=== PATIENT | male | born 1970 | race Caucasian/White ===

== ENCOUNTER 2020-01-01 08:42 | Outpatient (RCR) | payer OTHER, SELFPAY ==
--- NOTE | 2020-01-01 09:55 | PM.CNOR ---
Assessment and Plan Assessment and plan (1) Diabetic foot ulcer: Qualifiers: Diabetic foot ulcer location: midfoot Diabetes mellitus type: type 2 Laterality: right Non-pressure ulcer stage: with muscle involvement without evidence of necrosis Qualified Code(s): E11.621 - Type 2 diabetes mellitus with foot ulcer; L97.415 - Non-pressure chronic ulcer of right heel and midfoot with muscle involvement without evidence of necrosis Code(s): E11.621 - Type 2 diabetes mellitus with foot ulcer; L97.509 - Non-pressure chronic ulcer of other part of unspecified foot with unspecified severity Status: Acute Assessment and Plan: New complaints of right plantar DFU which began in June after falling asleep with his foot too close to a heater. He has been self treating his wound since that time and has not seen a provider or been on antibiotics. Ulcer on the plantar aspect of the 4th metatarsal head without signs of infection. No surrounding redness, warmth, swelling or drainage. Wound debrided under sterile conditions with #15 blade knife, tolerated well. Begin treatment with silver gel/foam and cover dry. Patient fit with fracture boot for additional pressure offloading. Pending closure of wound, patient will need to be fitted with custom orthotics/depth shoes. He was given an order 1 year ago but has been noncompliant with moving forward with fabrication by [facility]. Follow up in 2 weeks for reassessment. (2) Diabetes: Qualifiers: Diabetes mellitus type: type 2 Diabetes mellitus fdc insulin use: with fdc use Diabetes mellitus complication status: with skin complications Diabetes mellitus complication detail: with foot ulcer Qualified Code(s): E11.621 - Type 2 diabetes mellitus with foot ulcer; L97.509 - Non-pressure chronic ulcer of other part of unspecified foot with unspecified severity; Z79.4 - senior care (current) use of insulin Code(s): E11.9 - Type 2 diabetes mellitus without complications Status: Acute Assessment and Plan: Diabetes managed by Dr. Vega at [facility]. Patient currently on Jaurdiance. Patient reports good control of BG levels. Per patient, most recent HgB A1C is 6.2%. Discussed importance of proper nutrition and diabetic control for optimal healing. Patient verbalized understanding. History of Present Illness HPI Consult date: 01/01/20 Consult reason: other (Right DFU ) Chief complaint: E11.621 Type 2 diabetes with foot ulcer L97.519 Narrative: 49 year old male presents for evaluation of new onset right plantar DFU. Patient reports that the wound began in June after falling asleep with his foot too close to a heater. The patient reports having initially experienced a blister on the entire plantar aspect of the right foot. He has been performing self care on the foot with alcohol/hydrogen peroxide and triple antibiotic lotion. He has been using an old fracture boot and post op shoe. He has not been evaluated by a physician for his foot. He reports well controlled blood glucose levels after changes to his regimen by Dr. Vega at [facility]. He reports his most recent HgB A1C of 6.2%. Review of Systems Constitutional: Constitutional: Reports no additional constitutional complaints, Denies excessive sweating, Denies fever(s) and Denies weight gain Eyes: Eyes: Reports no additional eye complaints and Denies change in vision ENT: Reports system reviewed and no additional complaints, except as documented and Reports Normal hearing present Cardiovascular: Cardiovascular: Denies chest pain, Denies diaphoresis, Denies leg ulcers and Denies dyspnea on exertion Respiratory: Respiratory: Reports no additional respiratory complaints, Denies cough and Denies dyspnea on exertion Gastrointestinal: Gastrointestinal: Reports no additional gastrointestinal complaints, Denies abdominal pain, Denies constipation, Denies nausea and Denies vomiting Genitourinary: Genitourinary:
[2020-01-01 10:47] VITALS: BMI 44.6
--- NOTE | 2020-01-15 08:56 | PCWOUND ---
WOCN NOTE patient did not show up for appointment, left message to reschedule.
== END 2020-02-20 15:13 | disposition home or self-care (01) ==
LOC: ANHWOC 08:42
PROVIDERS: Visit Provider Orthopaedic Surgery
DX: E11.621 Type 2 diabetes mellitus with foot ulcer (principal); L97.519 Non-pressure chronic ulcer of other part of right foot with unspecified severity
CPT/HCPCS: 11043

== ENCOUNTER 2020-08-19 11:31 | Inpatient (IN) | payer OTHER, SELFPAY ==
--- NOTE | ~2020-08-19 | XR_ITS ---
EXAMINATION: XR surgery orthopedic DATE: 08/21/2020 14:23 INDICATION: Right third toe amputation TECHNIQUE: 2 fluoroscopic images of the right forefoot were obtained during procedure performed by Dr Beckie Burton. Radiologist was not present for the imaging or procedure. The amount of fluoroscopy time u sed during this procedure was 0.1 minutes. COMPARISON: 08/19/2020 FINDINGS: Transmetatarsal amputation of the third toe and distal aspect of the third metatarsal. Again seen is widening of the first and second metatarsophalangeal joint spaces with destructive change at the head s of the first and second metatarsals and to lesser degree the base of the first and second proximal phalanges likely sequela chronic septic arthritis and osteomyelitis. IMPRESSION: 1. Third toe and third transmetatarsal amputation for osteomyelitis with pathologic fractures. See pr ocedure note for further detail. 2. Chronic and associated osteolysis centered at the first and second metatarsophalangeal joints hickman ge of chronic septic arthritis and osteomyelitis. Difficult to exclude ongoing infection. Reviewed, dictated and finalized at location B. T KILN OPERATOR IMPRESSION: 1. Third toe and third transmetatarsal amputation for osteomyelitis with pathol ogic fractures. See procedure note for further detail. 2. Chronic and associated osteolysis centered at the first and second metatarso phalangeal joints change of chronic septic arthritis and osteomyelitis. Difficu lt to exclude ongoing infection.
--- NOTE | ~2020-08-19 | XR_ITS ---
EXAMINATION: XR toe 3rd RT min 2V DATE: 08/19/2020 13:10 INDICATION: Open wound. Stubbed toe 4 days prior. TECHNIQUE: Dorsal plantar, lateral and oblique views of the right third were obtained. COMPARISON: 10/10/2018 FINDINGS: There is prominent osteopenia and more focal osteolysis involving the head and neck of the third meta tarsal as well as the proximal and middle phalanges of the third toe consistent with osteomyelitis. S econdary pathologic fractures at the necks of the third metatarsal and at the proximal distal aspect of the diaphysis of the proximal phalanx. There is some soft tissue gas at the plantar aspect of the base of the third proximal phalanx. Chronic widening of the first and second metatarsophalangeal joint with chronic appearing cortical er osions with smooth corticated margins at the heads of the first and second metatarsals and with some chronic periosteal reaction at the base of the first and second proximal phalanges consistent with se quela chronic septic arthritis and osteomyelitis. No evident progressive osteolysis to suggest ongoin g osteomyelitis at the first and second rays.. IMPRESSION: 1. Osteomyelitis involving the head and neck of the right third metatarsal as well as the right third proximal and middle phalanges with likely secondary pathologic fractures at the neck of the third me tatarsal at the proximal distal diaphyses of the third proximal phalanx. 2. Change consistent with chronic septic arthritis and possible colitis at the first and second metat arsophalangeal joints. Reviewed, dictated and finalized at location B. KER HEATED METAL FORMS IMPRESSION: 1. Osteomyelitis involving the head and neck of the right third metatarsal as w ell as the right third proximal and middle phalanges with likely secondary path ologic fractures at the neck of the third metatarsal at the proximal distal una physes of the third proximal phalanx. 2. Change consistent with chronic septic arthritis and possible colitis at the first and second metatarsophalangeal joints.
--- NOTE | ~2020-08-19 | XR_ITS ---
EXAMINATION: XR foot RT min 3V DATE: 08/19/2020 15:07 INDICATION: Right third digit ulcer. TECHNIQUE: 4 views of right foot were obtained. COMPARISON: Right third toe radiographs 08/19/2020, right foot radiographs 10/10/2018, 07/06/18 FINDINGS: Bone alignment is normal. There are worsened chronic erosions of base of first proximal pha lanx and head of first metatarsal. There are stable chronic erosions at head of second metatarsal. Th ere is osteopenia of distal third metatarsal with pathologic transverse fracture of the neck of third metatarsal. There are erosions and osteopenia of third proximal phalanx with pathologic comminuted f racture. There is osteopenia of third middle and distal phalanges. There is an erosion of third middl e phalanx proximally. There is mild midfoot osteoarthritis. There are enthesophytes at the posterior and plantar aspects of calcaneal tuberosity. There is an ulcer in plantar aspect of third digit. IMPRESSION: 1. Osteomyelitis involving third metatarsal and the third proximal and middle phalanges with patholog ic fractures of third metatarsal and third proximal phalanx. 2. Worsened chronic erosions of base of first distal phalanx and head of first metatarsal, which may be secondary to degenerative change at the pseudoarthrosis or recurrent osteomyelitis. Reviewed, dictated and finalized at location A. ONAL RECRUITER IMPRESSION: 1. Osteomyelitis involving third metatarsal and the third proximal and middle p halanges with pathologic fractures of third metatarsal and third proximal phala nx. 2. Worsened chronic erosions of base of first distal phalanx and head of first metatarsal, which may be secondary to degenerative change at the pseudoarthrosi s or recurrent osteomyelitis.
[2020-08-19 12:08] VITALS: BP 145/75; PULSE 87; RESP 18; TEMP 36.2; O2SAT 99
[2020-08-19 12:41] LABS: Basophils Absolute Auto 0.1 K/mm3 (0.0-0.1); Basophils Percent Auto 0.9 % (0.2-1.2); Eosinophils Absolute Auto 0.2 K/mm3 (0-0.3); Hematocrit 40.4 % (42.0-52.0); Hemoglobin 13.7 g/dL (14.0-18.0); Immature Granulocyte Percent A 1.3 % (0-0.5); Lymphocytes Absolute Auto 1.58 K/mm3 (0.9-3.2); Lymphocytes Percent Auto 19.8 % (18.3-44.2); Mean Corpuscular HGB Conc 33.9 g/dl (32-36); Mean Corpuscular Hemoglobin 29.7 pg (26-34); Mean Corpuscular Volume 87.6 fl (80-100); Mean Platelet Volume 7.8 fl (7.4-10.4); Monocytes Absolute Auto 0.3 K/mm3 (0.1-0.6); Monocytes Percent Auto 3.5 % (2.6-8.5); Neutrophils Absolute Auto 5.8 K/mm3 (1.3-6.7); Neutrophils Percent Auto 72.5 % (45.5-73.1); Platelet Count Result 465 k/mm3 (150-375); Red Blood Count 4.61 M/mm3 (4.6-6.20); Red Cell Distribution Width 12.3 % (11.5-14.5)
[2020-08-19 12:52] LABS: Anion Gap 7 mmol/L (8-16); Blood Urea Nitrogen 12 mg/dL (9-20); Calcium 8.7 mg/dL (8.4-10.2); Carbon Dioxide 28 mmol/L (22-30); Chloride 98 mmol/L (98-107); Estimated CRCL calculation 134 ml/min; Estimated Glomerular Filt Rate > 60; Glucose 109 mg/dL (75-110); Potassium 4.3 mmol/L (3.4-5.0); Sodium 133 mmol/L (137-145)
--- NOTE | 2020-08-19 14:14 | ED.GENADULT ---
HPI - General Adult General Chief complaint: Wound/Laceration <Attila Proctor PA-C - Last Filed: 08/19/20 17:18> Stated complaint: R foot injury <EDILMA Mahoney Last Filed: 08/19/20 17:18> Time Seen by Provider: 08/19/20 12:57 <EDILMA Mahoney Last Filed: 08/19/20 17:18> Source: patient <EDILMA Mahoney Last Filed: 08/19/20 17:18> Mode of arrival: ambulatory <EDILMA Mahoney Last Filed: 08/19/20 17:18> Limitations: no limitations <EDLIMA Mahoney Last Filed: 08/19/20 17:18> History of Present Illness HPI narrative: Patient presents with chief complaint of pain, swelling and drainage from the right third metatarsal that has been present for 4 days. Patient states that he still works out 4 days ago and that is when he originally noticed the area. Patient states that he has had the ulcer to the plantar aspect of his foot for quite some time. Patient states that Dr. Burton perform surgery on his foot less than a year ago and was able to save it. Patient has diabetes. Patient denies fever, chills, nausea, vomiting, diarrhea, chest pain, shortness of breath or any other symptoms. <EDILMA Mahoney Last Filed: 08/19/20 17:18> Related Data Home medications: Home Medications Medication Instructions Recorded Confirmed empagliflozin [Jardiance] 10 mg PO DAILY 01/01/20 01/01/20 lisinopril 10 mg PO DAILY 01/01/20 01/01/20 metoprolol succinate 25 mg PO DAILY 01/01/20 01/01/20 aspirin 81 mg PO DAILY 08/19/20 atorvastatin 80 mg DAILY 08/19/20 empagliflozin [Jardiance] 10 mg DAILY 08/19/20 insulin NPH and regular human 40 unit SUBCUT DAILY 08/19/20 [Humulin 70/30 U-100 Insulin] insulin NPH and regular human SUBCUT 08/19/20 [Humulin 70/30 U-100 Insulin] <EDILMA Mahoney Last Filed: 08/19/20 17:18> Allergies/adverse reactions: Allergies Allergy/AdvReac Type Severity Reaction Status Date / Time amoxicillin Allergy Intermediate Swelling Verified 08/19/20 16:48 clavulanic acid Allergy Intermediate Swelling Verified 08/19/20 16:48 <Attila Proctor PA-C - Last Filed: 08/19/20 17:18> Review of Systems Review of Systems: Narrative: CONSTITUTIONAL: Denies fever, chills, or sweats. EYES: Denies visual changes, redness, or discharge. ENT: Denies rhinorrhea, congestion, sore throat, or otalgia. CARDIOVASCULAR: Denies chest pain, palpitations, or edema. RESPIRATORY: Denies cough or dyspnea. GASTROINTESTINAL: Denies abdominal pain, nausea, vomiting, or diarrhea. GENITOURINARY: Denies dysuria or hematuria. SKIN: Denies rash or itching. MUSCULOSKELETAL: Reports swelling pain erythema to right third metatarsal denies back pain, joint pain, or myalgia. NEUROLOGIC: Denies headache, numbness, dizziness, or weakness. PSYCHIATRIC: Denies anxiety or depression. <Attila Proctor PA-C - Last Filed: 08/19/20 17:18> [facility] Past Medical History Medical History: Medical History Diabetes HTN (hypertension) Osteomyelitis Septic arthritis Smoking <Attila Proctor PA-C - Last Filed: 08/19/20 17:18> Surgical History Surgical History: Surgical History H/O foot surgery 1. Excision of osteomyelitis from the right foot first and second metatarsal heads. 2. Incision of the hallux metatarsophalangeal joint with removal of septic arthritis. By Dr. Burton 2017 <Attila Proctor PA-C - Last Filed: 08/19/20 17:18> Social History Social History: Social History (Updated 08/19/20 @ 16:25 by TAL Guzmán) Social History: 49-year-old male that lives at home independently. His brother recently . He reports smoking approximately 10 cigarettes per day and frequently using marijuana. He reports intermittently drinking with his most recent drink approximately 2 weeks ago. Smoking status: Current every day smoker Tobacco type: cigarettes Second boland
--- NOTE | 2020-08-19 15:08 | PC.NURSE ---
received report from Cici RODRIGUEZ. patient here with wound. now (+) osteomyelitis. getting IV antibiotic now. has order for vancomycin next. planning for admission. no change in overall condition. patient is aware.
--- NOTE | 2020-08-19 15:30 | PM.IMHP ---
H&P: HPI History of Present Illness Date/Time: 08/19/20 15:30 Chief Complaint: Right foot wound. Narrative: This is a 49-year-old male with insulin-dependent diabetes, hypertension, and hyperlipidemia who presented to the emergency department earlier today via private vehicle from home for evaluation of a right foot wound. For the past couple of weeks he has noticed perhaps some irritation near the right 3rd metatarsal but over the past 4 days the area has become erythematous and edematous, initially with serosanguineous drainage but he has more recently noticed purulence and malodorous drainage. He has a prior history of of osteomyelitis and septic arthritis in the same foot and imaging today is consistent with osteomyelitis. At the time my evaluation he is comfortable after receiving pain medication. He has not had fever, chills, or sweats. Appetite has been good. No nausea or vomiting. He has not had blurry vision, polydipsia, or polyuria. Review of Systems Review of Systems: Narrative: Twelve systems were reviewed with pertinent positives and negatives as per HPI. No fever, chills, or sweats. No recent cold or flu symptoms. No known exposure to those positive for COVID-19. He denies cough and shortness of breath. No chest pain. No nausea, vomiting, or diarrhea. No dysuria. Except as documented, all other systems were reviewed and are negative. [facility] Past Medical History Medical History (Updated 08/19/20 @ 23:59 by Lacey Hogan PA-C) Hypertension Insulin dependent type 2 diabetes mellitus Osteomyelitis Septic arthritis Tobacco abuse Surgical History Surgical History (Updated 08/19/20 @ 23:55 by Lacey Hogan PA-C) History of foot surgery (~2018) Per Dr. Burton: 1. Excision of osteomyelitis from the right foot first and second metatarsal heads. 2. Incision of the hallux metatarsophalangeal joint with removal of septic arthritis. Family History Family History Other Adopted Social History Social History (Updated 08/19/20 @ 23:56 by Lacey Hogan PA-C) Social History: The patient lives in [place]. He is on disability. He has smoked up to a pack of cigarettes per day off and on for many years, now smokes about 5-10 cigarettes a day. Occasional marijuana use. Drinks alcohol socially and in moderation. He designates his brother as his surrogate decision maker and he wishes to be a full code. Smoking packs per day: 0.5 Smoking cigarettes per day: 10.0 Years smoked: 35 Smoking pack-years: 17.50 Smoking status: Current some day smoker Tobacco type: cigarettes Second hand tobacco smoke exposure: Yes Additional smoking assessment comments: had previously quit, past month has been smoking on and off Alcohol intake: current Drinks per week: 2 Alcohol use details: Social Substance use: current Substance use type: marijuana Other substance usage details: currently uses marijuana daily Last use: 08/18/2020 Additional living arrangements comments: Additional occupation/education comments: Gender identity (if verbalized by the patient): Male Sexual Orientation (if Verbalized by the Patient): Straight or Heterosexual Spiritual care concerns: No Meds Home Medications and Allergies Home Medications Medication Instructions Recorded Confirmed Type lisinopril 10 mg PO DAILY 01/01/20 08/19/20 History aspirin 81 mg PO DAILY 08/19/20 08/19/20 History atorvastatin 80 mg DAILY 08/19/20 08/19/20 History empagliflozin [Jardiance] 10 mg DAILY 08/19/20 08/19/20 History insulin NPH and regular human 40 unit SUBCUT BID 08/19/20 History [Humulin 70/30 U-100 Insulin] metoprolol tartrate 25 mg BID 08/19/20 08/19/20 History Allergies Allergy/AdvReac Type Severity Reaction Status Date / Time amoxicillin Allergy Intermediate Swelling Verified 08/19/20 16:48 clavulanic acid Allergy Intermedi
--- NOTE | 2020-08-19 15:35 | PC.NURSE ---
2nd set of blood cultures to be drawn by ground source heat pump technician. patient aware. will give vancomycin after cultures drawn. will put dressing on foot if ok with provider.
[2020-08-19 15:46] LABS: CRP 3.1 mg/dL (<1.0)
[2020-08-19 15:58] LABS: Erythrocyte Sedimentation Rate 37 mm/hr (0-20)
--- NOTE | 2020-08-19 16:02 | PC.NURSE ---
PA for orthopedic surgery at bedside. wound cultures done by her. dressing to foot by her. see notes.
--- NOTE | 2020-08-19 16:14 | PM.CNOR ---
Assessment and Plan Assessment and plan (1) Osteomyelitis: Qualifiers: Laterality: left Osteomyelitis location: foot Osteomyelitis type: unspecified type Qualified Code(s): M86.9 - Osteomyelitis, unspecified Code(s): M86.9 - Osteomyelitis, unspecified Status: Acute Assessment and Plan: History, exam and radiographs reviewed with the patient. Radiographs of the foot reveal osteomyelitis involving the head neck of the right 3rd metatarsal as well as the right 3rd proximal middle phalanges with likely secondary pathologic fractures at the neck of the 3rd metatarsal. Patient has a wound on the plantar aspect of the 3rd MTP joint which communicates with the MTP joint and through to the dorsal aspect of the foot. Bone visible on the dorsal aspect of the right 3rd ray. Discussed condition, nature, etiology course of natural history. Conservative and operative treatment options reviewed as well as the risks and benefits of each. Recommended amputation of the right 3rd ray and debridement of right plantar diabetic foot ulcer. Begin IV antibiotics under the direction the hospitalist service. Risks of surgery including but not limited to neurovascular damage, wound complications, blood clot, pulmonary embolus, stroke, myocardial infarction, anesthetic risks up to and including were reviewed. Continued pain and possible dysfunction were explained. No guarantees were offered. The patient understands and wishes to proceed. Plan: Right 3rd Ray Amputation and Debridement of DFU Stat Gram stain and cultures of the right foot obtained. Wet to dry gauze dressing in place. Partial weight-bearing right lower extremity. Postop shoe. NPO at midnight prior to surgery on with Dr. Burton. (2) Diabetic foot ulcer: Qualifiers: Diabetic foot ulcer location: unspecified part of foot Diabetes mellitus type: type 2 Laterality: right Non-pressure ulcer stage: unspecified non-pressure ulcer stage Qualified Code(s): E11.621 - Type 2 diabetes mellitus with foot ulcer; L97.519 - Non-pressure chronic ulcer of other part of right foot with unspecified severity Code(s): E11.621 - Type 2 diabetes mellitus with foot ulcer; L97.509 - Non-pressure chronic ulcer of other part of unspecified foot with unspecified severity Status: Acute Assessment and Plan: Close diabetic controlled be necessary for optimal wound healing and good surgical outcome. (3) Diabetes: Qualifiers: Diabetes mellitus type: type 2 Diabetes mellitus senior care insulin use: with senior care use Diabetes mellitus complication status: with skin complications Diabetes mellitus complication detail: with foot ulcer Qualified Code(s): E11.621 - Type 2 diabetes mellitus with foot ulcer; L97.509 - Non-pressure chronic ulcer of other part of unspecified foot with unspecified severity; Z79.4 - terminal manager (current) use of insulin Code(s): E11.9 - Type 2 diabetes mellitus without complications Status: Acute History of Present Illness HPI Consult date: 08/19/20 Consult reason: other (Right DFU ) Chief complaint: R foot injury Narrative: 49-year-old male presented to the emergency room with right 3rd ray wound and plantar forefoot wound. History, exam and radiographs reviewed with the patient. Patient reports a several week history of right 3rd ray wound. Increasing redness, warmth and swelling. Now with purulence and malodorous drainage. He is well known to our orthopedic service for a previous right foot excision of osteomyelitis and septic arthritis. He was lost to follow-up after January of 2020 when he refused to come back to wound clinic. Radiographs of the right foot reveal osteomyelitis of the head and neck of the right 3rd metatarsal as well as the right 3rd proximal and middle phalanges with likely secondary pathologic fractures at the neck of the 3rd metatarsal at the proximal distal diaphysis of the 3rd proxi
[2020-08-19] MEDS: HYDROmorphone HCL INJ (*CRX) 1 MG/ML SYR 0.5 MG IV PUSH ×2 (16:33→21:04)
--- NOTE | 2020-08-19 18:13 | PC.NURSE ---
resting on stretcher. food tray ordered. pillow given. denies any other needs at this time.
[2020-08-19 18:30] VITALS: BP 156/80; PULSE 88; RESP 22; O2SAT 96
--- NOTE | 2020-08-19 18:45 | PC.NURSE ---
patient assisted to sit up on stretcher to eat dinner tray. updated on current treatment plan. waiting for bed assignment upstairs for admission.
--- NOTE | 2020-08-19 19:32 | PC.NURSE ---
patient assigned to 257. SBAR faxed and tubed.
--- NOTE | 2020-08-19 19:48 | PC.NURSE ---
called report to Braxton RODRIGUEZ on 2nd medical. room is not clean. patient updated. they will call us when bed is clean.
--- NOTE | 2020-08-19 21:18 | PC.NURSE ---
received call that room is clean. patient transferred to 257 via technology coach and stretcher.
[2020-08-19] MEDS: SOD HYPOCHLORITE 1/4 STRENGTH 473 ML 1 APPLIC TOPICAL (21:34)
--- NOTE | 2020-08-19 21:45 | ADMGEN ---
This patient, Rashard Miranda, was admitted to Medical Room 257-01. Patient/family oriented to hospital policies and general routines including ID bracelet, bed and alarms, visiting hours, pain management, procedures, bathroom and other care routines, personal items, smoking policy, room service/diet, and visiting hours. Information on how to activate the Rapid Response Team has been discussed. Patient/Family are encouraged to report perceived risks to care and to ask questions if they do not understand what they are told or what they should do.
[2020-08-19 22:00] VITALS: BP 108/57; PULSE 82; RESP 20; TEMP 36.8; O2SAT 98; BMI 40.6
[2020-08-19 22:31] LABS: Glucose Point of Care 99 (65-105)
[2020-08-20] VITALS (7 sets, daily range): BP systolic 104–109; BP diastolic 61–64; PULSE 57–85; RESP 20–22; TEMP 35.9–36.7; O2SAT 92–98
[2020-08-20] MEDS: METOPROLOL TARTRATE 25 MG TABLET BY MOUTH ×3 (02:36→21:04)
[2020-08-20] MEDS: HYDROmorphone HCL INJ (*CRX) 1 MG/ML SYR 0.5 MG IV PUSH ×3 (03:16→22:52)
--- NOTE | 2020-08-20 05:36 | PC.NURSE ---
Pt does not wish to bring Jardiance from home, pharmacy has been notified
[2020-08-20 05:45] LABS: Hematocrit 39.7 % (42.0-52.0); Hemoglobin 13.4 g/dL (14.0-18.0); Mean Corpuscular HGB Conc 33.8 g/dl (32-36); Mean Corpuscular Hemoglobin 29.5 pg (26-34); Mean Corpuscular Volume 87.4 fl (80-100); Mean Platelet Volume 7.8 fl (7.4-10.4); Platelet Count Result 435 k/mm3 (150-375); Red Blood Count 4.54 M/mm3 (4.6-6.20); Red Cell Distribution Width 12.2 % (11.5-14.5); White Blood Count 7.8 K/mm3 (4.5-10.0)
[2020-08-20 06:10] LABS: Alanine Aminotransferase 18 U/L (4-50); Albumin Level 3.3 g/dL (3.5-5.1); Alkaline Phosphatase 127 U/L (38-126); Anion Gap 3 mmol/L (8-16); Aspartate Amino Transferase 25 U/L (17-59); Bilirubin,Total 0.3 mg/dL (0.2-1.3); Blood Urea Nitrogen 9 mg/dL (9-20); Calcium 8.6 mg/dL (8.4-10.2); Carbon Dioxide 30 mmol/L (22-30); Chloride 98 mmol/L (98-107); Estimated CRCL calculation 147 ml/min; Estimated Glomerular Filt Rate > 60; Glucose 112 mg/dL (75-110); Potassium 4.2 mmol/L (3.4-5.0); Sodium 131 mmol/L (137-145)
[2020-08-20 08:04] LABS: Glucose Point of Care 138 (65-105)
[2020-08-20 08:15] LABS: Hemoglobin A1C 6.8 % (<5.7)
[2020-08-20] MEDS: SOD HYPOCHLORITE 1/4 STRENGTH 473 ML 1 APPLIC TOPICAL ×2 (08:48→22:52)
--- NOTE | 2020-08-20 09:35 | PM.IMPN ---
Progress Note: A&P Assessment and Plan (1) Acute osteomyelitis of metatarsal bone of right foot: Code(s): M86.171 - Other acute osteomyelitis, right ankle and foot Status: Acute Assessment and Plan: Management per orthopedic surgery - appreciate recommendations. Imaging demonstrates osteomyelitis to right 3rd metatarsal and right 3rd proximal middle phalanges with pathologic fractures. Noted plan for tentative right 3rd ray amputation and debridement of diabetic foot ulcer on 08/[address] Burton. Continue IV imipenem and vancomycin (day 2). Appreciate ID consultation for recommendations regarding duration of antibiotic therapy. (2) Diabetic foot ulcer: Qualifiers: Diabetic foot ulcer location: unspecified part of foot Diabetes mellitus type: type 2 Laterality: right Non-pressure ulcer stage: unspecified non-pressure ulcer stage Qualified Code(s): E11.621 - Type 2 diabetes mellitus with foot ulcer; L97.519 - Non-pressure chronic ulcer of other part of right foot with unspecified severity Code(s): E11.621 - Type 2 diabetes mellitus with foot ulcer; L97.509 - Non-pressure chronic ulcer of other part of unspecified foot with unspecified severity Status: Acute Assessment and Plan: See above. (3) Insulin dependent type 2 diabetes mellitus: Code(s): E11.9 - Type 2 diabetes mellitus without complications; Z79.4 - bed bug exterminator (current) use of insulin Status: Chronic Assessment and Plan: Hgb A1c 6.8%. He reports taking 40 units of 70-30 insulin in the morning and at night, continue this and consider holding this evening dose if he will be NPO for surgery in AM. Discussed the importance of tight glycemic control to promote wound healing. Continue to monitor with accu-cheks and adjust treatment as needed, cover with SSI. (4) Hypertension: Code(s): I10 - Essential (primary) hypertension Status: Chronic Assessment and Plan: BP stable on lower end. Continue home lisinopril, lopressor. Monitor BP and adjust treatment as needed (5) Tobacco abuse: Code(s): Z72.0 - Tobacco use Status: Chronic Assessment and Plan: Cessation encouraged which will also be important to promote wound healing. Subjective Date/time seen: 08/20/20 0905 Interval history: Mr. Miranda is a 49yo M admitted for acute osteomyelitis right foot. He is sleeping but wakes easily to his name. He reports some mild pain to right foot but the pain is manageable per patient. He denies any chest pain, shortness of breath or cough. Denies nausea or vomiting. Review of Systems Review of Systems: All systems reviewed & are unremarkable except as noted in HPI and below Exam Narrative: Exam Narrative: General: Well-developed male resting on his left side in bed in no distress. HEENT: PERRL, EOMI. Sclerae anicteric. Oral mucosa moist. Respiratory: Lungs are clear to auscultation bilaterally. Cardiovascular: Regular rate and rhythm. Gastrointestinal: Abdomen is soft, obese, nontender, and nondistended with positive bowel sounds. Skin: Warm and dry. Right foot wound has recently been dressed per the orthopedic team. This dressing was not removed for exam. Please see the orthopedic surgery exam. Extremities: No cyanosis or clubbing. There is some edema of the right lower leg. KAYCEE radial and left pedal pulse palpable. Neurological: Alert. No gross focal deficits to casual conversation. Speech is clear. Psychiatric: Appropriate mood and affect. Objective Data Vital Signs Vital Signs: Last Vital Signs Temp 98.1 F 08/20/20 06:00 Pulse 65 08/20/20 06:00 Resp 20 08/20/20 06:00 BP 109/61 08/20/20 06:00 Pulse Ox 98 08/20/20 06:00
[2020-08-20 11:18] LABS: Glucose Point of Care 123 (65-105)
--- NOTE | 2020-08-20 11:51 | WPDINFPN2 ---
Progress Note: A&P Assessment and Plan (1) Acute osteomyelitis of metatarsal bone of right foot: Code(s): M86.171 - Other acute osteomyelitis, right ankle and foot Status: Acute Assessment and Plan: 1. Acute OM of R 3rd MT and toe 2. DM 3. Past toe/MT amputations for OM with prolonged IV rx 4. Augmentin --> swelling, not an allergic reaction REC PipTazo # 1, cultures collected, duration to be determined. Subjective Date/time seen: 08/20/20 11:51 Objective Data Vital Signs Vital Signs: Vital Signs - 24 hr 08/19/20 12:08 08/19/20 18:30 08/19/20 22:00 Temperature 36.2 C L 36.8 C Pulse Rate 87 88 82 Respiratory Rate 18 22 H 20 Blood Pressure 145/75 H 156/80 H 108/57 L Pulse Oximetry 99 96 98 08/20/20 02:36 08/20/20 06:00 Temperature 36.7 C Pulse Rate 85 65 Respiratory Rate 20 Blood Pressure 109/61 Pulse Oximetry 98 Intake/Output Intake/Output: Intake & Output 08/17/20 08/18/20 08/19/20 08/20/20 23:59 23:59 23:59 23:59 Intake Total 700 700 Output Total 800 Balance 700 -100 Meds/Results Medications: Active Medications Generic Name Dose Route Start Last Admin Trade Name Freq PRN Reason Stop Dose Admin Atorvastatin Calcium 80 mg 08/20/20 09:00 Atorvastatin 40 Mg Tablet BY MOUTH DAILY ILYA Dextrose 12.5 gm 08/20/20 00:02 Dextrose 50% 25 Gm/50 Ml Syringe IV PUSH PRN PRN Hypoglycemia Protocol Enoxaparin Sodium 40 mg 08/20/20 19:00 Enoxaparin 40 Mg/0.4 Ml Syringe SUB-Q DAILY ILYA Glucagon 1 mg 08/20/20 00:02 Glucagon For Inj 1 Mg Vial IM PRN PRN Hypoglycemia Protocol Glucose 15 gm 08/20/20 00:02 Glucose Oral Gel 15 Gm Of Glucse In 37.5 Gm Tube PO PRN PRN Hypoglycemia Protocol Hydromorphone HCl 0.5 mg 08/19/20 15:50 08/20/20 03:16 Hydromorphone Hcl Inj (*Crx) 1 Mg/Ml Syr IV PUSH 0.5 mg Q4H PRN Administration Pain Rated 7-10 Dextrose 1,000 mls @ 100 mls/hr 08/20/20 00:02 Dextrose 5% 1,000 Ml IVPB PRN PRN Hypoglycemia Protocol Piperacillin/Tazobactam/Dextrose 3.375 gm in 50 mls @ 100 mls/hr 08/20/20 11:50 Zosyn 3.375 Gm/D5w 50ml Pm IVPB Q6H [facility] Insulin Aspart 3 - 6 units 08/20/20 08:00 08/20/20 11:42 Insulin Aspart (*Bkc) 100 Units/Ml SUB-Q Not Given TIDWM ILYA Protocol Insulin Human Isoph/Insulin Regular 40 units 08/20/20 09:00 08/20/20 08:46 Insulin Human Isophan/Regular 70/30 (*Bkc) 100 Units/Ml SUB-Q Not Given BID [facility] Lisinopril 10 mg 08/20/20 09:00 Lisinopril 10 Mg Tablet PO DAILY [facility] Metoprolol Tartrate 25 mg 08/20/20 00:40 08/20/20 02:36 Metoprolol Tartrate 25 Mg Tablet BY MOUTH 25 mg Q12HR [facility] Administration Non-Formulary Medication 10 mg 08/20/20 09:00 Empagliflozin [Jardiance] BY MOUTH 09/19/20 09:01 DAILY [facility] Sodium Hypochlorite 1 applic 08/19/20 21:00 08/20/20 08:48 Sod Hypochlorite 1/4 Strength 473 Ml TOPICAL 1 applic Q12HR ILYA Administration Radiology Results: ITS Impressions Toe X-Ray 08/19/20 13:12 IMPRESSION: 1. Osteomyelitis involving the head and neck of the right third metatarsal as well as the right third proximal and middle phalanges with likely secondary pathologic fractures at the neck of the third metatarsal at the proximal distal diaphyses of the third proximal phalanx. 2. Change consistent with chronic septic arthritis and possible colitis at the first and second metatarsophalangeal joints. Foot X-Ray 08/19/20 15:10 IMPRESSION: 1. Osteomyelitis involving third metatarsal and the third proximal and middle phalanges with pathologic fractures of third metatarsal and third proximal phalanx. 2. Worsened chronic erosions of base of first distal phalanx and head of first metatarsal, which may be secondary to degenerative change at the pseudoarthrosis or recurrent osteomyelitis. Labs Labs: Laboratory Results - la
[2020-08-20] MEDS: ATORVASTATIN 40 MG TABLET 80 MG BY MOUTH (11:52)
[2020-08-20] MEDS: lisinopriL 10 MG TABLET PO (11:52)
--- NOTE | 2020-08-20 13:47 | WPDANESEPPF ---
Anes - Initial Pre Proc Eval Procedure: Operation Date: 08/21/20 13:30 Proposed Procedures p RIGHT THIRD TOE RAY AMPUTATION AND DEBRIDEMENT DIABETIC FOOT ULCER - Royer Butron MD Date/Time: 08/20/20 13:47 Surgeon: CATHLEEN Bonilla Pre Op Diagnosis: Osteomyelitis Right Foot Patient Data Age: 49 Gender: M Height: 1.78 m Weight: 128.6 kg Last Vital Signs Temp 36.7 C 08/20/20 06:00 Pulse 65 08/20/20 11:52 Resp 20 08/20/20 06:00 BP 109/61 08/20/20 06:00 Pulse Ox 98 08/20/20 06:00 Allergies Allergy/AdvReac Type Severity Reaction Status Date / Time amoxicillin Allergy Intermediate Swelling Verified 08/19/20 16:48 clavulanic acid Allergy Intermediate Swelling Verified 08/19/20 16:48 Home Medications Medication Instructions Recorded Confirmed Type lisinopril 10 mg PO DAILY 01/01/20 08/19/20 History aspirin 81 mg PO DAILY 08/19/20 08/19/20 History atorvastatin 80 mg DAILY 08/19/20 08/19/20 History empagliflozin [Jardiance] 10 mg DAILY 08/19/20 08/19/20 History insulin NPH and regular human 40 unit SUBCUT BID 08/19/20 08/20/20 History [Humulin 70/30 U-100 Insulin] metoprolol tartrate 25 mg BID 08/19/20 08/19/20 History Laboratory Tests 08/19/20 08/19/20 08/19/20 12:33 12:33 22:22 WBC RBC Hgb Hct MCV MCH MCHC RDW Plt Count MPV ESR 37 mm/hr H mm/hr (0-20) Sodium Potassium Chloride Carbon Dioxide Anion Gap BUN Creatinine Estim Creat Clear Calc Estimated GFR Glucose POC Capillary Glucose 99 mg/dl mg/dl (65-105) Hemoglobin A1c Calcium Total Bilirubin AST ALT Alkaline Phosphatase C-Reactive Protein 3.1 mg/dL H mg/dL (<1.0) Total Protein Albumin 08/20/20 08/20/20 08/20/20 05:13 05:13 05:14 WBC 7.8 K/mm3 K/mm3 (4.5-10.0) RBC 4.54 M/mm3 L M/mm3 (4.6-6.20) Hgb 13.4 g/dL L g/dL (14.0-18.0) Hct 39.7 % L % (42.0-52.0) MCV 87.4 fl fl (80-100) MCH 29.5 pg pg (26-34) MCHC 33.8 g/dl g/dl (32-36) RDW 12.2 % % (11.5-14.5) Plt Count 435 k/mm3 H k/mm3 (150-375) MPV 7.8 fl fl (7.4-10.4) ESR Sodium 131 mmol/L L mmol/L (137-145) Potassium 4.2 mmol/L mmol/L (3.4-5.0) Chloride 98 mmol/L mmol/L (98-107) Carbon Dioxide 30 mmol/L mmol/L (22-30) Anion Gap 3 mmol/L L mmol/L (8-16) BUN 9 mg/dL mg/dL (9-20) Creatinine 0.70 mg/dL mg/dL (0.7-1.3) Estim Creat Clear Calc 147 ml/min ml/min Estimated GFR > 60 (59 - ) Glucose 112 mg/dL H mg/dL (75-110) POC Capillary Glucose Hemoglobin A1c 6.8 % H % (<5.7) Calcium 8.6 mg/dL mg/dL (8.4-10.2) Total Bilirubin 0.3 mg/dL mg/dL (0.2-1.3) AST 25 U/L U/L (17-59) ALT 18 U/L U/L (4-50) Alkaline Phosphatase 127 U/L H U/L (38-126) C-Reactive Protein Total Protein 7.0 g/dL g/dL (6.3-8.2) Albumin 3.3 g/dL L g/dL (3.5-5.1) 08/20/20 08/20/20 07:55 10:59 WBC RBC Hgb Hct MCV MCH MCHC RDW Plt Count MPV ESR Sodium Potassium Chloride Carbon Dioxide Anion Gap BUN Creatinine Estim Creat Clear Calc Estimated GFR Glucose POC Capillary Glucose 138 mg/dl H mg/dl 123 mg/dl H mg/dl (65-105) (65-105) Hemoglobin A1c Calci
--- NOTE | 2020-08-20 14:15 | CONS_ITS ---
DATE OF CONSULTATION: 08/20/2020 REASON FOR CONSULTATION: Osteomyelitis, right 3rd metatarsal. HISTORY OF PRESENT ILLNESS: A 49-year-old male known to me from the past in the fall of 2018, he had osteomyelitis in the first and second metatarsals and toes. He underwent surgical and medical treatment, the latter in terms of prolonged IV therapy. Cultures at time of blood were negative and wound showed group G strep and susceptible Staph aureus. I do not follow him in the office. He presented to the emergency room yesterday with 4 days of swelling and redness of the right 3rd toe. X-rays were abnormal. He has been admitted. He has been given imipenem and vancomycin. Consultation requested. He denies fever, chills, or sweats prior to admission. He apparently was on Augmentin and clindamycin prior to admission from his primary care physician and suffered no ill effects, but had no benefit on his toe. No other trauma other than stubbing his toe on an object prior to onset of symptoms. ALLERGIES: AMOXICILLIN, CLAVULANIC ACID CAUSED LOWER EXTREMITY SWELLING. OTHERWISE, NO REACTIONS. TOLERATES BETA-LACTAMS IN GENERAL. HABITS: Alcohol, tobacco ongoing, also marijuana. No illegal drugs. PRESENT MEDICATIONS: As above. No immunosuppressants. PAST MEDICAL HISTORY: Multiple foot surgeries as above. Also hypertension and diabetes. REVIEW OF SYSTEMS: Hyperglycemia, otherwise endocrine, constitutional, skin, musculoskeletal, GI, respiratory negative. FAMILY HISTORY: Not pertinent to his present illness. SOCIAL HISTORY: He is disabled, lives in [place]. No family at the bedside. PHYSICAL EXAMINATION: GENERAL: This is a middle-aged male who appears actual age. No acute distress. VITAL SIGNS: Afebrile since arrival yesterday, 109/61, 65, 20, 98% on room air. SKIN: Warm and dry. EENT: Conjunctivae appear clear. NECK: No masses or meningismus. LUNGS: Clear to auscultation and percussion. CARDIAC: Regular rate and rhythm without murmur, gallop, or rub. Unable to examine his dorsalis pedis on the right, but popliteals 1+. ABDOMEN: Nontender, nondistended. No organomegaly. No masses. EXTREMITIES: Right foot is in a complex dressing which I could not remove. He has no proximal lymphangitis, erythema, tenderness, abnormal contour, or crepitus. His toes are edematous. LABORATORY DATA: Wound culture collected apparently by the orthopedic team, no results as yet. Blood cultures, no growth after short incubation. His white count is 7.8, hemoglobin 13.4, platelets are 435. A1c 6.8%. He has mild hyponatremia. BUN, creatinine normal. Glucose 112, CRP 3.1, albumin 3.3. Otherwise, liver function tests normal. RADIOLOGY: Has osteopenia and erosions over the proximal 3rd phalanx on the right, also pathologic fracture of the metatarsal shaft and old findings medially. ASSESSMENT: 1. Acute osteomyelitis of the right third metatarsal and toe. 2. Diabetes mellitus, well controlled. 3. Amoxicillin intolerance, not allergy. 4. Past acute osteomyelitis elsewhere on the right foot. RECOMMENDATIONS: 1. Piperacillin tazobactam. 2. Dr. Burton will be taking him to surgery. 3. Duration of IV antibiotics to be determined by his clinical course and operative intervention. Thank you very much for asking me to see him. ALTAGRACIA COWART M.D. BOWLING BALL ASSEMBLER BOWLING BALL ASSEMBLER D I MT: John
--- NOTE | 2020-08-20 14:33 | PM.PNORT ---
Progress Note: A&P Assessment and Plan (1) Acute osteomyelitis of metatarsal bone of right foot: Code(s): M86.171 - Other acute osteomyelitis, right ankle and foot Status: Acute Assessment and Plan: RT foot osteo/ DFU with recent acute infection. Cultures pending. Cont IV Abx Plan for surgical debridement tomorrow Discussed nonoperative and operative treatment options with the patient. Risks and benefits of each as well as alternatives were reviewed. All of the patient's questions were answered. The risks of surgery reviewed including but not limited to: Neurovascular damage, wound complication, infection, blood clot, pulmonary embolus, stroke, myocardial infarction, and anesthetic risks up to and including . Continued pain and possible dysfunction were explained. Specific risks of the procedure including later recurrence of deformity. No guarantees were offered. If hardware used, discussed risk of failure/ breakage and possible need for removal. If complications occur, the patient understands the need for further treatment, possible further surgery. Patient verbalizes understanding and wishes to proceed. PLAN: [place] Right diabetic foot ulcer, excision osteomyelitis/ 3rd toe amputation (2) Diabetic foot ulcer: Qualifiers: Diabetic foot ulcer location: unspecified part of foot Diabetes mellitus type: type 2 Laterality: right Non-pressure ulcer stage: unspecified non-pressure ulcer stage Qualified Code(s): E11.621 - Type 2 diabetes mellitus with foot ulcer; L97.519 - Non-pressure chronic ulcer of other part of right foot with unspecified severity Code(s): E11.621 - Type 2 diabetes mellitus with foot ulcer; L97.509 - Non-pressure chronic ulcer of other part of unspecified foot with unspecified severity Status: Acute (3) Insulin dependent type 2 diabetes mellitus: Code(s): E11.9 - Type 2 diabetes mellitus without complications; Z79.4 - terminal computer operator (current) use of insulin Status: Chronic Subjective Subjective Date/Time Seen: 08/20/20 14:33 Patient resting comfortably, no new c/o Exam Const: General: cooperative, comfortable and no acute distress Nutritional Appearance: obese Orientation/consciousness: patient oriented x3 Limitations: no limitations HENMT: Head: normocephalic Ears: hearing grossly normal bilaterally General nose exam: Normal external nose present Face and sinus: normal facial exam Mouth: Yes moist mucous membranes Teeth and gingiva: dentition normal Eyes: General: appearance normal, both eyes and all related structures Sclera: sclerae normal Pupils: Equal, round and reactive pupils present Neck: Neck: supple and no JVD Chest: Chest palpation & inspection: normal inspection of the chest Resp: Effort & Inspection: normal respiratory effort Cardio: Jugular venous distension: no JVD Rate: regular rate Rhythm: regular rhythm GI: Inspection: non-distended GI Palp: Yes Soft to palpation and No Tenderness to palpation present (GI) Skin: Wounds: wounds noted ( Right 3rd ray and plantar foot.) Other: Ulcer on the dorsal aspect of the right 3rd ray with necrosis and soft tissue. Bone visible. Ulcer on the plantar aspect of the right foot underneath the 3rd MTP joint with communication through the MTP joint to the dorsal aspect of the foot. Copious amounts of purulence fluid noted. Malodor noted. Surrounding callus formation noted. Dorsum of the forefoot with mild erythema. Significant swelling of the right foot noted. Neuro: General: gait normal Cognition (Neuro): normal cognition Speech: normal speech Other: decreased sensation b/l feet due to chronic neuropathy Extrem: Right lower extremity: normal to inspection, lower leg (mild swelling ), ankle and foot (Incision on the dorsal aspect of the 1st MTP joint well healed. ) Details: normal capillary refill, abnormal to inspection (Ulcer on the plantar aspect of the right foot. see skin asse
[2020-08-20 17:09] LABS: Glucose Point of Care 198 (65-105)
[2020-08-20 22:30] LABS: Glucose Point of Care 165 (65-105)
[2020-08-21] VITALS (12 sets, daily range): BP systolic 92–123; BP diastolic 57–75; PULSE 50–68; RESP 12–20; TEMP 36.2–36.6; O2SAT 93–98
[2020-08-21 05:45] LABS: Basophils Absolute Auto 0.1 K/mm3 (0.0-0.1); Basophils Percent Auto 1.1 % (0.2-1.2); Eosinophils Absolute Auto 0.1 K/mm3 (0-0.3); Eosinophils Percent Auto 2.2 % (0-4.4); Hematocrit 41.2 % (42.0-52.0); Hemoglobin 13.7 g/dL (14.0-18.0); Immature Granulocyte Absolute 0.09 K/mm3 (0.00-0.031); Immature Granulocyte Percent A 1.4 % (0-0.5); Lymphocytes Absolute Auto 2.22 K/mm3 (0.9-3.2); Lymphocytes Percent Auto 34.8 % (18.3-44.2); Mean Corpuscular HGB Conc 33.3 g/dl (32-36); Mean Corpuscular Volume 87.1 fl (80-100); Mean Platelet Volume 7.8 fl (7.4-10.4); Monocytes Absolute Auto 0.4 K/mm3 (0.1-0.6); Monocytes Percent Auto 6.3 % (2.6-8.5); Neutrophils Absolute Auto 3.5 K/mm3 (1.3-6.7); Neutrophils Percent Auto 54.2 % (45.5-73.1); Platelet Count Result 399 k/mm3 (150-375); Red Blood Count 4.73 M/mm3 (4.6-6.20); Red Cell Distribution Width 12.3 % (11.5-14.5); White Blood Count 6.4 K/mm3 (4.5-10.0)
[2020-08-21 05:47] LABS: Alanine Aminotransferase 21 U/L (4-50); Albumin Level 3.4 g/dL (3.5-5.1); Alkaline Phosphatase 129 U/L (38-126); Anion Gap 4 mmol/L (8-16); Aspartate Amino Transferase 25 U/L (17-59); Bilirubin,Total 0.3 mg/dL (0.2-1.3); Blood Urea Nitrogen 12 mg/dL (9-20); Calcium 8.6 mg/dL (8.4-10.2); Carbon Dioxide 28 mmol/L (22-30); Chloride 102 mmol/L (98-107); Estimated CRCL calculation 147 ml/min; Estimated Glomerular Filt Rate > 60; Glucose 133 mg/dL (75-110); Magnesium 2.1 mg/dL (1.6-2.3); Potassium 4.4 mmol/L (3.4-5.0); Sodium 134 mmol/L (137-145)
--- NOTE | 2020-08-21 07:25 | WPDHPUPDATE1 ---
History and Physical Update Update Date/Time: 08/21/20 07:25 History and Physical has been reviewed, including an updated exam of the patient. There are NO changes in the patient's condition. Risks, benefits, and alternatives have been discussed and questions answered. Patient agrees to proceed with procedure.
[2020-08-21 08:01] LABS: Glucose Point of Care 280 (65-105)
[2020-08-21] MEDS: METOPROLOL TARTRATE 25 MG TABLET BY MOUTH ×2 (08:29→21:16)
[2020-08-21] MEDS: HYDROmorphone HCL INJ (*CRX) 1 MG/ML SYR 0.5 MG IV PUSH (08:38)
--- NOTE | 2020-08-21 08:49 | PC.NURSE ---
Called Lisa and notified her of elevated blood glucose of 280. Patient NPO. Per Lisa, no insulin at this time. Recheck blood glucose in 2 hours and notify her if elevated. P.O. meds held for surgery - except Metoprolol given with sip of water. Marisela's dressing change held as patient is scheduled for debridement and amputation of 3rd toe today.
--- NOTE | 2020-08-21 10:38 | PM.IMPN ---
Progress Note: A&P Assessment and Plan (1) Acute osteomyelitis of metatarsal bone of right foot: Code(s): M86.171 - Other acute osteomyelitis, right ankle and foot Status: Acute Assessment and Plan: Management per orthopedic surgery - appreciate recommendations. Imaging demonstrates osteomyelitis to right 3rd metatarsal and right 3rd proximal middle phalanges with pathologic fractures. Noted plan for OR today with Dr Burton for tentative right 3rd ray amputation and debridement. Continue ID recommendations, appreciate input - on Zosyn (day 2). (2) Diabetic foot ulcer: Qualifiers: Diabetic foot ulcer location: unspecified part of foot Diabetes mellitus type: type 2 Laterality: right Non-pressure ulcer stage: unspecified non-pressure ulcer stage Qualified Code(s): E11.621 - Type 2 diabetes mellitus with foot ulcer; L97.519 - Non-pressure chronic ulcer of other part of right foot with unspecified severity Code(s): E11.621 - Type 2 diabetes mellitus with foot ulcer; L97.509 - Non-pressure chronic ulcer of other part of unspecified foot with unspecified severity Status: Acute Assessment and Plan: See above. 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 He reports taking 40 units of 70-30 insulin in the morning and at night, will resume once his diet resumes postoperatively. Discussed the importance of tight glycemic control to promote wound healing. Continue to monitor with accu-cheks and adjust treatment as needed, cover with SSI. (4) Hypertension: Code(s): I10 - Essential (primary) hypertension Status: Chronic Assessment and Plan: BP stable maintained on home lisinopril, lopressor. Monitor BP and adjust treatment as needed (5) Tobacco abuse: Code(s): Z72.0 - Tobacco use Status: Chronic Assessment and Plan: Cessation encouraged which will also be important to promote wound healing. Subjective Date/time seen: 08/21/20 0915 Interval history: Mr. Miranda is a 49yo M admitted for acute osteomyelitis right foot. He is sleeping but wakes easily to his name. His right foot pain is manageable at this time after getting some pain medication, notes it is a 5/10 at this time. He denies any chest pain, shortness of breath, nausea or vomiting. Waiting to go to OR this afternoon. Review of Systems Review of Systems: All systems reviewed & are unremarkable except as noted in HPI and below Exam Narrative: Exam Narrative: General: Well-developed male resting on his left side/stomach in bed in no distress. HEENT: PERRL, EOMI. Sclerae anicteric. Oral mucosa moist. Respiratory: Lungs are clear to auscultation bilaterally. Cardiovascular: Regular rate and rhythm. Gastrointestinal: Abdomen is soft, obese, nontender, and nondistended with positive bowel sounds. Skin: Warm and dry. Right foot wound has been dressed per the orthopedic team. This dressing was not removed for exam. Please see the orthopedic surgery exam. Extremities: No cyanosis or clubbing. There is some edema of the right lower leg. KAYCEE radial and left pedal pulse palpable. Neurological: Alert. No gross focal deficits to casual conversation. Speech is clear. Psychiatric: Appropriate mood and affect. Objective Data Vital Signs Vital Signs: Last Vital Signs Temp 97.8 F 08/21/20 05:05 Pulse 68 08/21/20 08:29 Resp 20 08/21/20 05:05 BP 115/62 08/21/20 05:05 Pulse Ox 97 08/21/20 05:05 Intake/Output Intake/Output: Intake & Output 08/18/20 08/19/20 08/20/20 08/21/20
[2020-08-21 11:18] LABS: Glucose Point of Care 151 (65-105)
--- NOTE | 2020-08-21 11:45 | PC.NURSE ---
To OR via bed with OR staff. SBAR faxed earlier and handoff to Kristin RN.
[2020-08-21] MEDS: LACTATED RINGERS 1,000 ML 30 ML IV CONT (12:10)
[2020-08-21] MEDS: BUPIVACAINE HCL 0.5% PF 30 ML VIAL INFILTRATE (14:20)
[2020-08-21 15:00] LABS: Glucose Point of Care 136 (65-105)
--- NOTE | 2020-08-21 15:09 | PM.PROC ---
Procedure Note - Detailed Date of procedure: 08/21/20 Pre-op diagnosis: Osteomyelitis Right Foot Post-op diagnosis: same Procedure performed: Right foot 3rd ray amputation, debridement excisional diabetic foot ulcer Description of procedure: Indications: Patient is a 49-year-old gentleman with diabetes and peripheral neuropathy with a chronic ulcer on the plantar aspect of the right foot. Patient has had previous infections treated with debridement and antibiotics. He was lost to follow-up and return with active infection of the right 3rd toe and purulence drainage from the plantar ulcer which was non healed. Radiographs show changes of the metatarsal consistent with infection as well as chronic changes of the toe. He presents now for operative treatment. He has been started on intravenous antibiotics. What was done: Patient identified in the preoperative holding. Informed consent given. Operative extremity marked. Patient received intravenous antibiotics. Patient brought to the operating room where underwent general anesthetic by anesthesia team. Positioned supine on operating room table. Time-out performed confirming the patient, site of the surgery and the plan. Right foot prepped draped usual sterile surgical fashion using a Betadine prep solution. The foot ulcer was addressed 1st. This was a dime-sized ulceration on the plantar aspect of the right foot under the 3rd metatarsal head approximately. Fifteen blade knife used to sharply excise subcutaneous tissue muscle and the ulcer skin edge. This was excised and passed off. Bleeding points coagulated. This was thoroughly irrigated antibiotic solution and closed with 2 0 Prolene interrupted suture. The 3rd ray was then addressed. A dorsal longitudinal incision was made which was then ellipsed around the base of the 3rd toe. Hemostasis controlled electrocautery. Dissection carried down to the metatarsal neck. There is noted to be active infection of the metatarsal neck which had already been transected from the infection. From the metatarsal head distal the bone was shelled out and the toe was then passed off as a specimen. Cultures were taken of the purulent material. Tractors were then placed around the proximal metatarsal and a sagittal saw was used to make a new osteotomy in the midportion of the metatarsal. Bone removed with rongeur. Any other devitalized tissue was removed sharply. Wound thoroughly irrigated antibiotic solution. Deep tissue closed with 3 Monocryl interrupted suture. Skin closed with 2 0 Prolene interrupted suture. Sterile dressing applied. The patient was then woken from anesthesia, extubated and taken to the recovery room in stable condition. All sponge, needle, instrument counts were correct at the end of the case. Anesthesia: GLMA Surgeon: Royer Burton MD Supervisor Wet End: 1st graduate research assistant Estimated blood loss (mL): 10 Drains: No Packing: No Pathology: yes (Right 3rd ray, aerobic and anaerobic cultures) Complications: None Condition: stable Disposition: PACU Findings: Destruction of 3rd metatarsal neck consistent with osteomyelitis, purulent fluid with soft tissue and bone destruction proximal phalanx and middle phalanx 3rd toe.
--- NOTE | 2020-08-21 15:20 | PC.NURSE ---
Patient returned from OR via bed with OR staff. Settled into room. Awake and alert. Denies pain, nausea or discomfort. Tolerating water without difficulty. Requesting food. Right foot with dressing D/I - no drainage noted. Toes visible with good color and warm to touch. Patient states he has some feeling in them but they feel a bit numb right now. Right foot elevated on pillow and ice pack applied.
[2020-08-21] MEDS: DOCUSATE SODIUM 100 MG CAPSULE PO (16:31)
[2020-08-21] MEDS: HYDROcodone/acetaminophen (*CRX) 5-325 MG TABLET 1 TAB PO ×2 (16:31→22:16)
[2020-08-21 18:55] LABS: Glucose Point of Care 357 (65-105)
[2020-08-21] MEDS: INSULIN ASPART (*BKC) 100 UNITS/ML SUB-Q (18:58)
[2020-08-21 21:20] LABS: Glucose Point of Care 209 (65-105)
[2020-08-22] VITALS (8 sets, daily range): BP systolic 106–122; BP diastolic 52–63; PULSE 61–74; RESP 18–20; TEMP 36–37.4; O2SAT 95–98
[2020-08-22] MEDS: HYDROcodone/acetaminophen (*CRX) 5-325 MG TABLET 1 TAB PO (05:04)
[2020-08-22 05:59] LABS: Basophils Absolute Auto 0.1 K/mm3 (0.0-0.1); Basophils Percent Auto 0.8 % (0.2-1.2); Eosinophils Absolute Auto 0.1 K/mm3 (0-0.3); Eosinophils Percent Auto 0.9 % (0-4.4); Hematocrit 39.3 % (42.0-52.0); Hemoglobin 13.1 g/dL (14.0-18.0); Immature Granulocyte Absolute 0.09 K/mm3 (0.00-0.031); Immature Granulocyte Percent A 0.9 % (0-0.5); Lymphocytes Absolute Auto 1.89 K/mm3 (0.9-3.2); Lymphocytes Percent Auto 19.8 % (18.3-44.2); Mean Corpuscular HGB Conc 33.3 g/dl (32-36); Mean Corpuscular Hemoglobin 28.8 pg (26-34); Mean Corpuscular Volume 86.4 fl (80-100); Monocytes Absolute Auto 0.5 K/mm3 (0.1-0.6); Monocytes Percent Auto 4.9 % (2.6-8.5); Neutrophils Absolute Auto 6.9 K/mm3 (1.3-6.7); Neutrophils Percent Auto 72.7 % (45.5-73.1); Platelet Count Result 386 k/mm3 (150-375); Red Blood Count 4.55 M/mm3 (4.6-6.20); Red Cell Distribution Width 12.2 % (11.5-14.5); White Blood Count 9.6 K/mm3 (4.5-10.0)
[2020-08-22 06:12] LABS: Anion Gap 5 mmol/L (8-16); Blood Urea Nitrogen 13 mg/dL (9-20); Calcium 8.5 mg/dL (8.4-10.2); Carbon Dioxide 28 mmol/L (22-30); Chloride 98 mmol/L (98-107); Estimated CRCL calculation 147 ml/min; Estimated Glomerular Filt Rate > 60; Glucose 132 mg/dL (75-110); Potassium 4.3 mmol/L (3.4-5.0); Sodium 131 mmol/L (137-145)
[2020-08-22 07:40] LABS: Glucose Point of Care 158 (65-105)
--- NOTE | 2020-08-22 08:00 | PC.NURSE ---
Patient refusing ice packs to right foot. Pillow in bed for elevating right foot but patient repeatedly removes pillow and does not keep his foot elevated as ordered.
--- NOTE | 2020-08-22 09:24 | WPDANESPN ---
Anes - Prog Note Post-Op Date/Time: 08/22/20 09:24 Cardiovascular status: normal Respiratory status: normal Airway patency: baseline Mental status: baseline Post-Op hydration status: normal Vital Signs: Last Vital Signs Temp 37.4 C 08/22/20 04:00 Pulse 71 08/22/20 04:00 Resp 18 08/22/20 04:00 BP 110/56 L 08/22/20 04:00 Pulse Ox 95 08/22/20 04:00 Pain Score (VAS): 0 I/O: Intake & Output 08/21/20 08/22/20 08/22/20 23:59 07:59 15:59 Intake Total 630 500 480 Output Total 300 600 Balance 330 -100 480 Laboratory Tests 08/22/20 05:12 08/22/20 05:12 08/21/20 08/21/20 08/21/20 11:13 14:42 18:53 WBC RBC Hgb Hct MCV MCH MCHC RDW Plt Count MPV Immature Gran % (Auto) Neut % (Auto) Lymph % (Auto) [place] % (Auto) Eos % (Auto) Baso % (Auto) Lymph # (Auto) [place] # (Auto) Eos # (Auto) Baso # (Auto) Abs Immat Gran (auto) Absolute Neuts (auto) Absolute Nucleated RBC Nucleated RBC % Sodium Potassium Chloride Carbon Dioxide Anion Gap BUN Creatinine Estim Creat Clear Calc Estimated GFR Glucose POC Capillary Glucose 151 H 136 H 357 H Calcium 08/21/20 08/22/20 08/22/20 21:14 05:12 05:12 WBC 9.6 RBC 4.55 L Hgb 13.1 L Hct 39.3 L MCV 86.4 MCH 28.8 MCHC 33.3 RDW 12.2 Plt Count 386 H MPV 8.0 Immature Gran % (Auto) 0.9 H Neut % (Auto) 72.7 Lymph % (Auto) 19.8 [place] % (Auto) 4.9 Eos % (Auto) 0.9 Baso % (Auto) 0.8 Lymph # (Auto) 1.89 [place] # (Auto) 0.5 Eos # (Auto) 0.1 Baso # (Auto) 0.1 Abs Immat Gran (auto) 0.09 H Absolute Neuts (auto) 6.9 H Absolute Nucleated RBC 0.0 Nucleated RBC % 0.0 Sodium 131 L Potassium 4.3 Chloride 98 Carbon Dioxide 28 Anion Gap 5 L BUN 13 Creatinine 0.70 Estim Creat Clear Calc 147 Estimated GFR > 60 Glucose 132 H POC Capillary Glucose 209 H Calcium 8.5 08/22/20 07:33 WBC RBC Hgb Hct MCV MCH MCHC RDW Plt Count MPV Immature Gran % (Auto) Neut % (Auto) Lymph % (Auto) [place] % (Auto) Eos % (Auto) Baso % (Auto) Lymph # (Auto) [place] # (Auto) Eos # (Auto) Baso # (Auto) Abs Immat Gran (auto) Absolute Neuts (auto) Absolute Nucleated RBC Nucleated RBC % Sodium Potassium Chloride Carbon Dioxide Anion Gap BUN Creatinine Estim Creat Clear Calc Estimated GFR Glucose POC Capillary Glucose 158 H Calcium Microbiology 08/19/20 16:20 Foot Right Anaerobic Culture - Preliminary Bacteroides sp, not B fragilis 08/19/20 16:20 Foot Right Aerobic Culture - Final Proteus vulgaris Group C Streptococcus Post-procedural complaints: none Patient Feedback: Patient satisfied with anesthetic care.
[2020-08-22] MEDS: ATORVASTATIN 40 MG TABLET 80 MG BY MOUTH (09:48)
[2020-08-22] MEDS: ASPIRIN 81 MG ENTERIC TABLET PO (09:48)
[2020-08-22] MEDS: METOPROLOL TARTRATE 25 MG TABLET BY MOUTH ×2 (09:49→20:19)
[2020-08-22] MEDS: lisinopriL 10 MG TABLET PO (09:49)
[2020-08-22] MEDS: DOCUSATE SODIUM 100 MG CAPSULE PO ×2 (09:54→16:32)
--- NOTE | 2020-08-22 10:31 | PM.IMPN ---
Progress Note: A&P Assessment and Plan (1) Acute osteomyelitis of metatarsal bone of right foot: Code(s): M86.171 - Other acute osteomyelitis, right ankle and foot Status: Acute Assessment and Plan: Management per orthopedic surgery - appreciate recommendations. Now POD#1 s/p right 3rd ray amputation. Imaging demonstrated osteomyelitis to right 3rd metatarsal and right 3rd proximal middle phalanges with pathologic fractures. Continue ID recommendations, appreciate input - on Zosyn (day 3). Blood cultures are pending with no growth to date. Surgical cultures are growing multiple organisms; Bacteroides, Proteus, strep. (2) Diabetic foot ulcer: Qualifiers: Diabetic foot ulcer location: unspecified part of foot Diabetes mellitus type: type 2 Laterality: right Non-pressure ulcer stage: unspecified non-pressure ulcer stage Qualified Code(s): E11.621 - Type 2 diabetes mellitus with foot ulcer; L97.519 - Non-pressure chronic ulcer of other part of right foot with unspecified severity Code(s): E11.621 - Type 2 diabetes mellitus with foot ulcer; L97.509 - Non-pressure chronic ulcer of other part of unspecified foot with unspecified severity Status: Acute Assessment and Plan: See above. (3) Insulin dependent type 2 diabetes mellitus: Code(s): E11.9 - Type 2 diabetes mellitus without complications; Z79.4 - assisted (current) use of insulin Status: Chronic Assessment and Plan: Hgb A1c 6.8%. He reports taking 40 units of 70-30 insulin in the morning and at night, was discontinued after surgery but we will resume it at a lower dose today. Discussed the importance of tight glycemic control to promote wound healing. Continue to monitor with accu-cheks and adjust treatment as needed, cover with SSI. (4) Hypertension: Code(s): I10 - Essential (primary) hypertension Status: Chronic Assessment and Plan: BP on the lower end but stable maintained on home lisinopril, lopressor. Monitor BP and adjust treatment as needed (5) Tobacco abuse: Code(s): Z72.0 - Tobacco use Status: Chronic Assessment and Plan: Cessation encouraged which will also be important to promote wound healing. Subjective Date/time seen: 08/22/20 0930 Interval history: Mr. Miranda is a 49yo M admitted for acute osteomyelitis right foot now POD#1 s/p right 3rd ray amputation. He is sleeping but wakes easily to his name. He reports his right foot pain around 5/10 at this time but otherwise offers no complaints. He is sleeping and eating well. Has had a bowel movement each day. Denies chest pain, shortness of breath, nausea, or vomiting. Review of Systems Review of Systems: All systems reviewed & are unremarkable except as noted in HPI and below Exam Narrative: Exam Narrative: General: Well-developed male resting comfortably supine in bed in no acute distress. HEENT: PERRL, EOMI. Sclerae anicteric. Oral mucosa moist. Sunglasses on. Respiratory: Lungs are clear to auscultation bilaterally. Cardiovascular: Regular rate and rhythm. Gastrointestinal: Abdomen is soft, obese, nontender, and nondistended with positive bowel sounds. Skin: Warm and dry. Right foot wound has been dressed per the orthopedic team. This dressing was not removed for exam. Please see the orthopedic surgery exam. Extremities: No cyanosis or clubbing. There is still some edema of the right lower leg. KAYCEE radial and left pedal pulse palpable. Neurological: Alert. No gross focal deficits to casual conversation. Speech is clear. Objective Data Vital Signs Vital Signs: Last Vital Signs Temp 98.2 F 08/22/20 14:00 Pulse 65 08/22/20 14:00 Resp 18 08/22/20 14:00 BP 106/52 L
--- NOTE | 2020-08-22 10:47 | PM.PNORT ---
Progress Note: A&P Assessment and Plan (1) Acute osteomyelitis of metatarsal bone of right foot: Code(s): M86.171 - Other acute osteomyelitis, right ankle and foot Status: Acute Assessment and Plan: RT foot osteo/ DFU with recent acute infection. postop day 1 status post right foot 3rd ray amputation and debridement with closure. Cultures showing bacteria sensitive to current Zosyn. Dressing change today. Continue with daily dressing changes. Offload with postoperative shoe and weight on the heel only. Plans for follow-up in wound clinic when discharged. Will review pain control. Discharge home when home IV antibiotics arranged. (2) Diabetic foot ulcer: Qualifiers: Diabetic foot ulcer location: unspecified part of foot Diabetes mellitus type: type 2 Laterality: right Non-pressure ulcer stage: unspecified non-pressure ulcer stage Qualified Code(s): E11.621 - Type 2 diabetes mellitus with foot ulcer; L97.519 - Non-pressure chronic ulcer of other part of right foot with unspecified severity Code(s): E11.621 - Type 2 diabetes mellitus with foot ulcer; L97.509 - Non-pressure chronic ulcer of other part of unspecified foot with unspecified severity Status: Acute (3) Insulin dependent type 2 diabetes mellitus: Code(s): E11.9 - Type 2 diabetes mellitus without complications; Z79.4 - assisted (current) use of insulin Status: Chronic Subjective Subjective Date/Time Seen: 08/22/20 10:47 Patient awake and alert. Complains of some pain right foot unrelieved with his current [place] dose. Exam Const: General: cooperative, comfortable and no acute distress Nutritional Appearance: obese Orientation/consciousness: patient oriented x3 Limitations: no limitations HENMT: Head: normocephalic Ears: hearing grossly normal bilaterally General nose exam: Normal external nose present Face and sinus: normal facial exam Mouth: Yes moist mucous membranes Teeth and gingiva: dentition normal Eyes: General: appearance normal, both eyes and all related structures Sclera: sclerae normal Pupils: Equal, round and reactive pupils present Neck: Neck: supple and no JVD Chest: Chest palpation & inspection: normal inspection of the chest Resp: Effort & Inspection: normal respiratory effort Cardio: Jugular venous distension: no JVD Rate: regular rate Rhythm: regular rhythm GI: Inspection: non-distended GI Palp: Yes Soft to palpation and No Tenderness to palpation present (GI) Skin: Wounds: wounds noted ( Right 3rd ray and plantar foot.) Neuro: General: gait normal Cognition (Neuro): normal cognition Speech: normal speech Other: decreased sensation b/l feet due to chronic neuropathy Extrem: Right lower extremity: normal to inspection, lower leg (mild swelling ), ankle and foot (Incision on the dorsal aspect of the 1st MTP joint well healed. ) Details: normal capillary refill, abnormal to inspection ( Surgical incision forefoot), vascular exam Details: dorsalis pedis pulse present and normal capillary refill and motor-sensory exam Details: two point discrimination abnormal Location: in all toes and light-touch abnormal Location: in all toes; no ecchymosis Left lower extremity: normal to inspection and foot (No open ulcers ) Details: normal capillary refill, abnormal to inspection ( Previous amputation 2nd toe and part of 5th toe. Surgical incisions well healed.) and toes with normal ROM; no tenderness Other: dressing changed right foot. Sanguinous drainage from the amputation site on dressing. No active drainage. Swelling and erythema improved. Incisions intact. No proximal redness or streaking or swelling. Moves ankle and toes without pain. Negative Homans sign Psych: Mental Status: mental status grossly normal Affect: normal affect Objective Data Vital Signs Vital Signs: Vital Signs - 24 hr 08/21/20 12:01 08/21/20 14:39 08/21/20 14:50 Temperature 97.9 F 97.2 F L Pulse Rate 5
--- NOTE | 2020-08-22 11:00 | PC.NURSE ---
Dressing to right foot changed by Dr. Burton and ARABIC PROFESSOR. Bloody drainage noted to top of dressing but has not continued.
[2020-08-22] MEDS: HYDROmorphone HCL INJ (*CRX) 1 MG/ML SYR 0.5 MG IV PUSH ×2 (11:40→16:32)
[2020-08-22 12:06] LABS: Glucose Point of Care 156 (65-105)
--- NOTE | 2020-08-22 15:29 | PC.NURSE ---
Patient sleeping. FLACC 0
[2020-08-22 16:30] LABS: Glucose Point of Care 110 (65-105)
--- NOTE | 2020-08-22 16:34 | WPDINFPN2 ---
Progress Note: A&P Assessment and Plan (1) Acute osteomyelitis of metatarsal bone of right foot: Code(s): M86.171 - Other acute osteomyelitis, right ankle and foot Status: Acute Assessment and Plan: 1. Acute OM of R 3rd MT and toe. I reviewed in full his cultures. POD #1, operative findings noted. 2. DM 3. Past toe/MT amputations for OM with prolonged IV rx 4. Augmentin --> swelling, not an allergic reaction REC [employer] # 3, continue through 09/17/20. Paper orders for [facility] Prior Auth completed. I reminded him that auth for home IV may not be completed until Friday 08/25, he feels ready to go anytime that his supplies are delivered. Subjective Date/time seen: 08/22/20 16:34 Interval history: no complaints. He has performed home IV therapy in past, and he remains a good candidate to do again for this illness Exam Narrative: Exam Narrative: afebrile Const: General: no acute distress Eyes: General: appearance normal, both eyes and all related structures Resp: Effort & Inspection: normal respiratory effort Auscultation: clear to auscultation bilaterally Cardio: Rate: regular rate Rhythm: regular rhythm Heart sounds: no murmurs GI: Inspection: non-distended GI Palp: Yes Soft to palpation and No Tenderness to palpation present (GI) Skin: General skin exam: normal color and no rashes or lesions noted Objective Data Vital Signs Vital Signs: Vital Signs - 24 hr 08/21/20 17:01 08/21/20 20:00 08/21/20 21:16 Temperature 36.2 C L 36.6 C Pulse Rate 64 65 67 Respiratory Rate 16 20 Blood Pressure 123/75 110/59 L Pulse Oximetry 97 98 08/22/20 00:00 08/22/20 04:00 08/22/20 09:49 Temperature 37.4 C 37.4 C Pulse Rate 66 71 64 Respiratory Rate 20 18 Blood Pressure 122/63 110/56 L Pulse Oximetry 98 95 08/22/20 10:10 08/22/20 14:00 Temperature 36.0 C L 36.8 C Pulse Rate 74 65 Respiratory Rate 18 18 Blood Pressure 108/58 L 106/52 L Pulse Oximetry 98 96 Intake/Output Intake/Output: Intake & Output 08/19/20 08/20/20 08/21/2029/21 23:59 23:59 23:59 23:59 Intake Total 700 4282 277 8644 Output Total 1900 1300 600 Balance 426 -223 -949 910 Meds/Results Medications: Active Medications Generic Name Dose Route Start Last Admin Trade Name Freq PRN Reason Stop Dose Admin Hydrocodone Bitart/Acetaminophen 1 tab 08/22/20 10:53 Hydrocodone/Acetaminophen (*Crx) 7.5-325 Mg Tablet PO Q4H PRN Pain Rated 4-6 Aspirin 81 mg 08/22/20 09:00 08/22/20 09:48 Aspirin 81 Mg Enteric Tablet PO 09/21/20 09:01 81 mg DAILY ILYA Administration Atorvastatin Calcium 80 mg 08/20/20 09:00 08/22/20 09:48 Atorvastatin 40 Mg Tablet BY MOUTH 80 mg DAILY ILYA Administration Dextrose 12.5 gm 08/20/20 00:02 Dextrose 50% 25 Gm/50 Ml Syringe IV PUSH PRN PRN Hypoglycemia Protocol Docusate Sodium 100 mg 08/21/20 17:00 08/22/20 16:32 Docusate Sodium 100 Mg Capsule PO 100 mg BID ILYA Administration Glucagon 1 mg 08/20/20 00:02 Glucagon For Inj 1 Mg Vial IM PRN PRN Hypoglycemia Protocol Glucose 15 gm 08/20/20 00:02 Glucose Oral Gel 15 Gm Of Glucse In 37.5 Gm Tube PO PRN PRN Hypoglycemia Protocol Hydromorphone HCl 0.5 mg 08/22/20 10:53 08/22/20 16:32 Hydromorphone Hcl Inj (*Crx) 1 Mg/Ml Syr IV PUSH 0.5 mg Q3H PRN Administration Pain Rated 7-10 Dextrose 1,000 mls @ 100 mls/hr 08/20/20 00:02 Dextrose 5% 1,000 Ml IVPB PRN PRN Hypoglycemia Protocol Piperacillin/Tazobactam/Dextrose 3.375 gm in 50 mls @ 100 mls/hr 08/20/20 12:00 08/22/20 12:38 Zosyn 3.375 Gm/D5w 50ml Pm IVPB Infused Q6HR ILYA Infusion Insulin Aspart 3 - 6 units 08/20/20 08:00 08/22/20 16:26 Insulin Aspart (*Bkc) 100 Units/Ml SUB-Q Not Given TIDWM [facility] Protocol Insulin Human Isoph/Insulin Regular 20 units 08/22/20 16:30 Insulin Human Isophan/Regular 70/30 (*Bkc) 100 Units/Ml S
[2020-08-22] MEDS: INSULIN HUMAN ISOPHAN/REGULAR 70/30 (*BKC) 100 UNITS/ML 20 UNITS SUB-Q (17:42)
[2020-08-22 21:20] LABS: Glucose Point of Care 192 (65-105)
[2020-08-22] MEDS: HYDROcodone/acetaminophen (*CRX) 7.5-325 MG TABLET 1 TAB PO (23:55)
[2020-08-23] VITALS (9 sets, daily range): BP systolic 106–118; BP diastolic 54–71; PULSE 56–70; RESP 16–18; TEMP 36.4–36.8; O2SAT 95–98
[2020-08-23 07:04] LABS: Glucose Point of Care 150 (65-105)
[2020-08-23] MEDS: INSULIN HUMAN ISOPHAN/REGULAR 70/30 (*BKC) 100 UNITS/ML 20 UNITS SUB-Q (07:42)
[2020-08-23] MEDS: DOCUSATE SODIUM 100 MG CAPSULE PO ×2 (08:28→17:29)
[2020-08-23] MEDS: HYDROcodone/acetaminophen (*CRX) 7.5-325 MG TABLET 1 TAB PO ×2 (08:28→17:38)
[2020-08-23] MEDS: ATORVASTATIN 40 MG TABLET 80 MG BY MOUTH (08:28)
[2020-08-23] MEDS: lisinopriL 10 MG TABLET PO (08:28)
[2020-08-23] MEDS: ASPIRIN 81 MG ENTERIC TABLET PO (08:28)
[2020-08-23] MEDS: METOPROLOL TARTRATE 25 MG TABLET BY MOUTH ×2 (08:29→20:34)
--- NOTE | 2020-08-23 09:26 | PM.IMPN ---
Progress Note: A&P Assessment and Plan (1) Acute osteomyelitis of metatarsal bone of right foot: Code(s): M86.171 - Other acute osteomyelitis, right ankle and foot Status: Acute Assessment and Plan: Imaging demonstrated osteomyelitis to right 3rd metatarsal and right 3rd proximal middle phalanges with pathologic fractures. Management per orthopedic surgery - appreciate recommendations. Now POD#2 s/p right 3rd ray amputation. Continue ID recommendations, appreciate input - on Zosyn (day 4). Blood cultures are pending with no growth to date. Surgical cultures are growing multiple organisms; Bacteroides, Proteus, strep. (2) Diabetic foot ulcer: Qualifiers: Diabetic foot ulcer location: unspecified part of foot Diabetes mellitus type: type 2 Laterality: right Non-pressure ulcer stage: unspecified non-pressure ulcer stage Qualified Code(s): E11.621 - Type 2 diabetes mellitus with foot ulcer; L97.519 - Non-pressure chronic ulcer of other part of right foot with unspecified severity Code(s): E11.621 - Type 2 diabetes mellitus with foot ulcer; L97.509 - Non-pressure chronic ulcer of other part of unspecified foot with unspecified severity Status: Acute Assessment and Plan: See above. (3) Insulin dependent type 2 diabetes mellitus: Code(s): E11.9 - Type 2 diabetes mellitus without complications; Z79.4 - senior care (current) use of insulin Status: Chronic Assessment and Plan: Hgb A1c 6.8%. He reports taking 40 units of 70-30 insulin in the morning and at night, resumed at a lower dose for now and blood sugars are stable today. Discussed the importance of tight glycemic control to promote wound healing. Continue to monitor with accu-cheks and adjust treatment as needed, cover with SSI. (4) Hypertension: Code(s): I10 - Essential (primary) hypertension Status: Chronic Assessment and Plan: BP on the lower end but stable maintained on home lisinopril, lopressor. Monitor BP and adjust treatment as needed (5) Tobacco abuse: Code(s): Z72.0 - Tobacco use Status: Chronic Assessment and Plan: Cessation encouraged which will also be important to promote wound healing. Subjective Date/time seen: 08/23/20 09:00 Interval history: Mr. Miranda is a 49yo M admitted for acute osteomyelitis right foot now POD#2 s/p right 3rd ray amputation. He is resting comfortably and tells me his pain to the right foot is manageable at this time. Tolerated breakfast this morning without nausea or vomiting. Denies any chest pain or shortness of breath. Offers no complaints. Review of Systems Review of Systems: All systems reviewed & are unremarkable except as noted in HPI and below Exam Narrative: Exam Narrative: General: Well-developed male resting comfortably supine in bed in no acute distress. HEENT: PERRL, EOMI. Sclerae anicteric. Oral mucosa moist. Respiratory: Lungs are clear to auscultation bilaterally. Cardiovascular: Regular rate and rhythm. Gastrointestinal: Abdomen is soft, obese, nontender, and nondistended with positive bowel sounds. Skin: Warm and dry. Right foot wound has been dressed per the orthopedic team. This dressing was not removed for exam. Please see the orthopedic surgery exam. Extremities: No cyanosis or clubbing. There is still some pitting edema of the right lower leg 1+ below the knee. KAYCEE radial and left pedal pulse palpable. Neurological: Alert. No gross focal deficits to casual conversation. Speech is clear. Objective Data Vital Signs Vital Signs: Last Vital Signs Temp 97.5 F L 08/23/20 10:51 Pulse 56 L 08/23/20 10:51 Resp 18 08/23/20 10:51 BP 108/58 L 08/23/20 10:51 Pulse Ox 95 0
[2020-08-23 12:08] LABS: Glucose Point of Care 189 (65-105)
[2020-08-23 16:15] LABS: Glucose Point of Care 113 (65-105)
[2020-08-23 21:06] LABS: Glucose Point of Care 140 (65-105)
[2020-08-24] MEDS: HYDROcodone/acetaminophen (*CRX) 7.5-325 MG TABLET 1 TAB PO ×4 (00:21→23:57)
[2020-08-24 06:00] VITALS: BP 109/64; PULSE 68; RESP 18; TEMP 36.7; O2SAT 98
[2020-08-24 06:27] LABS: Basophils Absolute Auto 0.1 K/mm3 (0.0-0.1); Basophils Percent Auto 0.9 % (0.2-1.2); Eosinophils Absolute Auto 0.2 K/mm3 (0-0.3); Eosinophils Percent Auto 2.9 % (0-4.4); Hematocrit 40.3 % (42.0-52.0); Hemoglobin 13.4 g/dL (14.0-18.0); Immature Granulocyte Absolute 0.04 K/mm3 (0.00-0.031); Immature Granulocyte Percent A 0.6 % (0-0.5); Lymphocytes Percent Auto 42.6 % (18.3-44.2); Mean Corpuscular HGB Conc 33.3 g/dl (32-36); Mean Corpuscular Hemoglobin 28.9 pg (26-34); Mean Platelet Volume 8.2 fl (7.4-10.4); Monocytes Absolute Auto 0.3 K/mm3 (0.1-0.6); Monocytes Percent Auto 4.7 % (2.6-8.5); Neutrophils Absolute Auto 3.2 K/mm3 (1.3-6.7); Neutrophils Percent Auto 48.3 % (45.5-73.1); Platelet Count Result 385 k/mm3 (150-375); Red Blood Count 4.63 M/mm3 (4.6-6.20); Red Cell Distribution Width 12.3 % (11.5-14.5); White Blood Count 6.6 K/mm3 (4.5-10.0)
[2020-08-24 06:43] LABS: Anion Gap 1 mmol/L (8-16); Blood Urea Nitrogen 12 mg/dL (9-20); Calcium 9.3 mg/dL (8.4-10.2); Carbon Dioxide 32 mmol/L (22-30); Chloride 102 mmol/L (98-107); Estimated CRCL calculation 130 ml/min; Estimated Glomerular Filt Rate > 60; Glucose 130 mg/dL (75-110); Magnesium 1.9 mg/dL (1.6-2.3); Potassium 4.2 mmol/L (3.4-5.0); Sodium 135 mmol/L (137-145)
[2020-08-24 08:13] LABS: Glucose Point of Care 140 (65-105)
[2020-08-24 08:18] VITALS: BP 112/78; PULSE 59
[2020-08-24] MEDS: ASPIRIN 81 MG ENTERIC TABLET PO (08:23)
[2020-08-24] MEDS: ATORVASTATIN 40 MG TABLET 80 MG BY MOUTH (08:23)
[2020-08-24 08:24] VITALS: PULSE 59
[2020-08-24] MEDS: DOCUSATE SODIUM 100 MG CAPSULE PO ×2 (08:24→16:41)
[2020-08-24] MEDS: METOPROLOL TARTRATE 25 MG TABLET BY MOUTH ×2 (08:24→21:20)
[2020-08-24] MEDS: lisinopriL 10 MG TABLET PO (08:24)
[2020-08-24] MEDS: INSULIN HUMAN ISOPHAN/REGULAR 70/30 (*BKC) 100 UNITS/ML 20 UNITS SUB-Q ×2 (08:27→17:26)
--- NOTE | 2020-08-24 11:24 | PM.IMPN ---
Progress Note: A&P Assessment and Plan (1) Acute osteomyelitis of metatarsal bone of right foot: Code(s): M86.171 - Other acute osteomyelitis, right ankle and foot Status: Acute Assessment and Plan: Imaging demonstrated osteomyelitis to right 3rd metatarsal and right 3rd proximal middle phalanges with pathologic fractures. Management per orthopedic surgery - appreciate recommendations. Now POD#3 s/p right 3rd ray amputation. Continue ID recommendations, appreciate input - on Zosyn (day 5) through 09/17/20. Blood cultures are pending with no growth to date. Surgical wound cultures are growing multiple organisms; Bacteroides, Proteus, Group C Strep. Insert PICC. We are awaiting insurance authorization for IV antibiotics, hopeful for discharge tomorrow. (2) Diabetic foot ulcer: Qualifiers: Diabetic foot ulcer location: unspecified part of foot Diabetes mellitus type: type 2 Laterality: right Non-pressure ulcer stage: unspecified non-pressure ulcer stage Qualified Code(s): E11.621 - Type 2 diabetes mellitus with foot ulcer; L97.519 - Non-pressure chronic ulcer of other part of right foot with unspecified severity Code(s): E11.621 - Type 2 diabetes mellitus with foot ulcer; L97.509 - Non-pressure chronic ulcer of other part of unspecified foot with unspecified severity Status: Acute Assessment and Plan: See above. (3) Insulin dependent type 2 diabetes mellitus: Code(s): E11.9 - Type 2 diabetes mellitus without complications; Z79.4 - technician terminal and repeater (current) use of insulin Status: Chronic Assessment and Plan: Hgb A1c 6.8%. He reports taking 40 units of 70-30 insulin in the morning and at night, resumed at a lower dose for now and blood sugars are stable today. Discussed the importance of tight glycemic control to promote wound healing. Continue to monitor with accu-cheks and adjust treatment as needed, cover with SSI. (4) Hypertension: Code(s): I10 - Essential (primary) hypertension Status: Chronic Assessment and Plan: BP on the lower end but stable maintained on home lisinopril, lopressor. Monitor BP and adjust treatment as needed (5) Tobacco abuse: Code(s): Z72.0 - Tobacco use Status: Chronic Assessment and Plan: Cessation encouraged which will also be important to promote wound healing. Subjective Date/time seen: 08/24/20 0945 Interval history: Mr. Miranda is a 49yo M admitted for acute osteomyelitis right foot now POD#3 s/p right 3rd ray amputation. He is comfortable today and offers no complaints. Slept okay on and off last night. Tolerated breakfast this morning without nausea or vomiting. Denies any chest pain or shortness of breath. Right foot pain is tolerable per patient. Review of Systems Review of Systems: All systems reviewed & are unremarkable except as noted in HPI and below Exam Narrative: Exam Narrative: General: Well-developed male resting comfortably sitting up on edge of bed in no acute distress. HEENT: PERRL, EOMI. Sclerae anicteric. Oral mucosa moist. Respiratory: Lungs are clear to auscultation bilaterally. Cardiovascular: Regular rate and rhythm. Gastrointestinal: Abdomen is soft, obese, nontender, and nondistended with positive bowel sounds. Skin: Warm and dry. Right foot wound dressing clean/dry/intact. This dressing was not removed for exam. Please see the orthopedic surgery exam. Extremities: No cyanosis or clubbing. There is still some pitting edema of the right lower leg 1+ below the knee. KAYCEE radial and left pedal pulse palpable. Neurological: Alert. No gross focal deficits to casual conversation. Speech is clear. Objective Data Vital Signs Vital Signs: Last Vital S
[2020-08-24 12:35] LABS: Glucose Point of Care 154 (65-105)
[2020-08-24 15:30] VITALS: BP 112/56; PULSE 60; RESP 18; TEMP 36.5; O2SAT 97
[2020-08-24 17:25] LABS: Glucose Point of Care 142 (65-105)
[2020-08-24 21:20] VITALS: PULSE 65
[2020-08-24 21:58] LABS: Glucose Point of Care 131 (65-105)
[2020-08-24 22:00] VITALS: BP 111/69; PULSE 65; RESP 16; TEMP 35.9; O2SAT 98
[2020-08-25 05:36] LABS: Basophils Absolute Auto 0.1 K/mm3 (0.0-0.1); Basophils Percent Auto 0.8 % (0.2-1.2); Eosinophils Absolute Auto 0.2 K/mm3 (0-0.3); Eosinophils Percent Auto 2.2 % (0-4.4); Hematocrit 41.4 % (42.0-52.0); Hemoglobin 13.7 g/dL (14.0-18.0); Immature Granulocyte Absolute 0.06 K/mm3 (0.00-0.031); Immature Granulocyte Percent A 0.8 % (0-0.5); Lymphocytes Absolute Auto 3.38 K/mm3 (0.9-3.2); Lymphocytes Percent Auto 44.5 % (18.3-44.2); Mean Corpuscular HGB Conc 33.1 g/dl (32-36); Mean Corpuscular Hemoglobin 29.3 pg (26-34); Mean Corpuscular Volume 88.7 fl (80-100); Mean Platelet Volume 7.9 fl (7.4-10.4); Monocytes Absolute Auto 0.4 K/mm3 (0.1-0.6); Monocytes Percent Auto 4.7 % (2.6-8.5); Neutrophils Absolute Auto 3.6 K/mm3 (1.3-6.7); Platelet Count Result 370 k/mm3 (150-375); Red Blood Count 4.67 M/mm3 (4.6-6.20); Red Cell Distribution Width 12.4 % (11.5-14.5); White Blood Count 7.6 K/mm3 (4.5-10.0)
[2020-08-25 05:52] LABS: Anion Gap 7 mmol/L (8-16); Blood Urea Nitrogen 15 mg/dL (9-20); Calcium 9.4 mg/dL (8.4-10.2); Carbon Dioxide 27 mmol/L (22-30); Chloride 103 mmol/L (98-107); Estimated CRCL calculation 147 ml/min; Estimated Glomerular Filt Rate > 60; Glucose 135 mg/dL (75-110); Potassium 4.4 mmol/L (3.4-5.0); Sodium 137 mmol/L (137-145)
[2020-08-25] MEDS: HYDROcodone/acetaminophen (*CRX) 7.5-325 MG TABLET 1 TAB PO ×3 (05:53→23:47)
[2020-08-25 06:00] VITALS: BP 103/47; PULSE 58; RESP 18; TEMP 36.4; O2SAT 98
[2020-08-25 07:33] LABS: Glucose Point of Care 138 (65-105)
[2020-08-25] MEDS: INSULIN HUMAN ISOPHAN/REGULAR 70/30 (*BKC) 100 UNITS/ML 20 UNITS SUB-Q ×2 (08:40→18:02)
[2020-08-25 08:41] VITALS: PULSE 76
[2020-08-25] MEDS: ATORVASTATIN 40 MG TABLET 80 MG BY MOUTH (08:41)
[2020-08-25] MEDS: ASPIRIN 81 MG ENTERIC TABLET PO (08:41)
[2020-08-25] MEDS: METOPROLOL TARTRATE 25 MG TABLET BY MOUTH ×2 (08:41→20:12)
[2020-08-25] MEDS: DOCUSATE SODIUM 100 MG CAPSULE PO ×2 (08:41→18:02)
[2020-08-25] MEDS: lisinopriL 10 MG TABLET PO (08:42)
[2020-08-25] MEDS: LIDOCAINE HCL 1% PF INJ 5 ML VIAL INFILTRATE (09:00)
--- NOTE | 2020-08-25 10:15 | PM.PNORT ---
Progress Note: A&P Assessment and Plan (1) Acute osteomyelitis of metatarsal bone of right foot: Code(s): M86.171 - Other acute osteomyelitis, right ankle and foot Status: Acute Assessment and Plan: POD #4: Right Foot 3rd Ray Amputation and Debridement with Closure Dressing changed today. Add transfer to incision line to wick away moisture. Apply 4x4 gauze and cover dry. Wrap with kerlex/KEITH wrap. Post op shoe. PWB post op shoe. Patient comfortable with home dressing changes. Continue IV antibiotics. PICC line placed today. Awaiting home infusion arrangements. Plans for follow-up in wound clinic when discharged. Dispo: Home with Home Infusion [facility] wound clinic in 1 week. (2) Diabetic foot ulcer: Qualifiers: Diabetic foot ulcer location: unspecified part of foot Diabetes mellitus type: type 2 Laterality: right Non-pressure ulcer stage: unspecified non-pressure ulcer stage Qualified Code(s): E11.621 - Type 2 diabetes mellitus with foot ulcer; L97.519 - Non-pressure chronic ulcer of other part of right foot with unspecified severity Code(s): E11.621 - Type 2 diabetes mellitus with foot ulcer; L97.509 - Non-pressure chronic ulcer of other part of unspecified foot with unspecified severity Status: Acute (3) Insulin dependent type 2 diabetes mellitus: Code(s): E11.9 - Type 2 diabetes mellitus without complications; Z79.4 - half-way (current) use of insulin Status: Chronic Subjective Subjective Date/Time Seen: 08/25/20 10:15 No new complaints. Awaiting discharge. Review of Systems Constitutional: Constitutional: Reports no additional constitutional complaints, Denies excessive sweating, Denies fever(s), Denies headache(s), Denies increased appetite and Denies weight gain Eyes: Eyes: Reports no additional eye complaints and Denies change in vision ENT: Reports system reviewed and no additional complaints, except as documented and Reports Normal hearing present Cardiovascular: Cardiovascular: Denies chest pain, Denies diaphoresis, Denies leg ulcers and Denies dyspnea on exertion Respiratory: Respiratory: Reports no additional respiratory complaints, Denies cough and Denies dyspnea on exertion Gastrointestinal: Gastrointestinal: Reports no additional gastrointestinal complaints, Denies abdominal pain, Denies constipation, Denies nausea and Denies vomiting Genitourinary: Genitourinary: Reports no additional male genitourinary complaints, Denies hematuria and Denies urinary frequency Musculoskeletal: Musculoskeletal: Reports no additional musculoskeletal complaints and Reports as per HPI Integumentary/Breasts: Skin/Breast: Reports as per HPI Neurologic: Reports Normal hearing present Psychiatric: Psychiatric: Reports no additional psychiatric complaints Endocrine: Endocrine: Reports no additional endocrine complaints, Denies change in body appearance, Denies excessive sweating, Denies polyphagia, Denies polydipsia and Denies polyuria Hematologic/Lymphatic: Hematologic/Lymphatic: Reports no additional hematologic/lymphatic complaints Exam Const: General: cooperative, comfortable and no acute distress Nutritional Appearance: obese Orientation/consciousness: patient oriented x3 Limitations: no limitations HENMT: Head: normocephalic Ears: hearing grossly normal bilaterally General nose exam: Normal external nose present Face and sinus: normal facial exam Mouth: Yes moist mucous membranes Teeth and gingiva: dentition normal Eyes: General: appearance normal, both eyes and all related structures Sclera: sclerae normal Pupils: Equal, round and reactive pupils present Neck: Neck: supple and no JVD Chest: Chest palpation & inspection: normal inspection of the chest Resp: Effort & Inspection: normal respiratory effort Cardio: Jugular venous distension: no JVD Rate: regular rate Rhythm: regular rhythm GI: Inspection: non-distended GI Palp: Yes Soft to palpat
--- NOTE | 2020-08-25 11:23 | WPDINFPN2 ---
Progress Note: A&P Assessment and Plan (1) Acute osteomyelitis of metatarsal bone of right foot: Code(s): M86.171 - Other acute osteomyelitis, right ankle and foot Status: Acute Assessment and Plan: 1. Acute OM of R 3rd MT and toe. Cultures as before which are final. POD #3. 2. DM, well controlled 3. Past toe/MT amputations for OM with prolonged IV rx 4. Augmentin --> swelling, not an allergic reaction, and he is tolerating his current Rx REC PipTazo # 5, continue through 09/17/20. Paper orders repeated for insurance, and to be forwarded to [facility] pharmacy for IV rx and monitoring labs. Ok discharge once all arranged, see me in office prior to 09/17. Will sign off. Subjective Date/time seen: 08/25/20 11:23 Interval history: no foot pain, no leg pain. No f/c/s. Good appetite, Acuccheks reviewed. Exam Narrative: Exam Narrative: afebrile Const: General: no acute distress Resp: Effort & Inspection: normal respiratory effort Auscultation: clear to auscultation bilaterally Cardio: Rate: regular rate Rhythm: regular rhythm Heart sounds: no gallops and no murmurs GI: Inspection: non-distended GI Palp: Yes Soft to palpation, No Tenderness to palpation present (GI) and No Guarding due to palpation present (GI) Skin: General skin exam: normal color and no rashes or lesions noted Other: PICC site normal Objective Data Vital Signs Vital Signs: Vital Signs - 24 hr 08/24/20 15:30 08/24/20 21:20 08/24/20 22:00 Temperature 36.5 C 35.9 C L Pulse Rate 60 65 65 Respiratory Rate 18 16 Blood Pressure 112/56 L 111/69 Pulse Oximetry 97 98 08/25/20 06:00 08/25/20 08:41 Temperature 36.4 C L Pulse Rate 58 L 76 Respiratory Rate 18 Blood Pressure 103/47 L Pulse Oximetry 98 Intake/Output Intake/Output: Intake & Output 08/22/20 08/23/20 08/24/20 08/25/20 23:59 23:59 23:59 23:59 Intake Total 2290 2840 2250 650 Output Total 2400 1200 1950 750 Balance -110 1640 300 -100 Meds/Results Medications: Active Medications Generic Name Dose Route Start Last Admin Trade Name Freq PRN Reason Stop Dose Admin Hydrocodone Bitart/Acetaminophen 1 tab 08/22/20 10:53 08/25/20 05:53 Hydrocodone/Acetaminophen (*Crx) 7.5-325 Mg Tablet PO 1 tab Q4H PRN Administration Pain Rated 4-6 Aspirin 81 mg 08/22/20 09:00 08/25/20 08:41 Aspirin 81 Mg Enteric Tablet PO 09/21/20 09:01 81 mg DAILY ILYA Administration Atorvastatin Calcium 80 mg 08/20/20 09:00 08/25/20 08:41 Atorvastatin 40 Mg Tablet BY MOUTH 80 mg DAILY ILYA Administration Dextrose 12.5 gm 08/20/20 00:02 Dextrose 50% 25 Gm/50 Ml Syringe IV PUSH PRN PRN Hypoglycemia Protocol Docusate Sodium 100 mg 08/21/20 17:00 08/25/20 08:41 Docusate Sodium 100 Mg Capsule PO 100 mg BID ILYA Administration Glucagon 1 mg 08/20/20 00:02 Glucagon For Inj 1 Mg Vial IM PRN PRN Hypoglycemia Protocol Glucose 15 gm 08/20/20 00:02 Glucose Oral Gel 15 Gm Of Glucse In 37.5 Gm Tube PO PRN PRN Hypoglycemia Protocol Hydromorphone HCl 0.5 mg 08/22/20 10:53 08/22/20 16:32 Hydromorphone Hcl Inj (*Crx) 1 Mg/Ml Syr IV PUSH 0.5 mg Q3H PRN Administration Pain Rated 7-10 Dextrose 1,000 mls @ 100 mls/hr 08/20/20 00:02 Dextrose 5% 1,000 Ml IVPB PRN PRN Hypoglycemia Protocol Piperacillin/Tazobactam/Dextrose 3.375 gm in 50 mls @ 100 mls/hr 08/20/20 12:00 08/25/20 06:46 Zosyn 3.375 Gm/D5w 50ml Pm IVPB Infused Q6HR [facility] Infusion Insulin Aspart 3 - 6 units 08/20/20 08:00 08/25/20 08:03 Insulin Aspart (*Bkc) 100 Units/Ml SUB-Q Not Given TIDWM [facility] Protocol Insulin Human Isoph/Insulin Regular 20 units 08/22/20 16:30 08/25/20 08:40 Insulin Human Isophan/Regular 70/30 (*Bkc) 100 Units/Ml SUB-Q 20 units BIDAC ILYA Administration Lisinopril 10 mg 08/20/20 09:00 08/25/20 08:42 Lisinopril 10 Mg Tablet PO 10 mg
[2020-08-25 11:41] LABS: Glucose Point of Care 135 (65-105)
[2020-08-25] MEDS: CENTRAL LINE FLUSH 10 ML IV PUSH ×2 (12:22→20:12)
[2020-08-25] MEDS: HYDROmorphone HCL INJ (*CRX) 1 MG/ML SYR 0.5 MG IV PUSH (13:15)
[2020-08-25 14:00] VITALS: BP 116/48; PULSE 58; RESP 19; TEMP 36.8; O2SAT 98
--- NOTE | 2020-08-25 16:20 | PM.IMPN ---
Progress Note: A&P Assessment and Plan (1) Acute osteomyelitis of metatarsal bone of right foot: Code(s): M86.171 - Other acute osteomyelitis, right ankle and foot Status: Acute Assessment and Plan: Imaging demonstrated osteomyelitis to right 3rd metatarsal and right 3rd proximal middle phalanges with pathologic fractures. Management per orthopedic surgery - appreciate recommendations. Now POD#4 s/p right 3rd ray amputation. Continue ID recommendations, appreciate input - on Zosyn (day 6) through 09/17/20. Blood cultures are negative. Surgical wound cultures are growing multiple organisms; Bacteroides, Proteus, Group C Strep. PICC inserted today. We are awaiting insurance authorization for IV antibiotics, hopeful for discharge tomorrow. (2) Diabetic foot ulcer: Qualifiers: Diabetic foot ulcer location: unspecified part of foot Diabetes mellitus type: type 2 Laterality: right Non-pressure ulcer stage: unspecified non-pressure ulcer stage Qualified Code(s): E11.621 - Type 2 diabetes mellitus with foot ulcer; L97.519 - Non-pressure chronic ulcer of other part of right foot with unspecified severity Code(s): E11.621 - Type 2 diabetes mellitus with foot ulcer; L97.509 - Non-pressure chronic ulcer of other part of unspecified foot with unspecified severity Status: Acute Assessment and Plan: See above. (3) Insulin dependent type 2 diabetes mellitus: Code(s): E11.9 - Type 2 diabetes mellitus without complications; Z79.4 - shelter (current) use of insulin Status: Chronic Assessment and Plan: Hgb A1c 6.8%. He reports taking 40 units of 70-30 insulin in the morning and at night, resumed at a lower dose (20 units BID) and blood sugars are stable today. Discussed the importance of tight glycemic control to promote wound healing. Continue to monitor with accu-cheks and adjust treatment as needed, cover with SSI. (4) Hypertension: Code(s): I10 - Essential (primary) hypertension Status: Chronic Assessment and Plan: BP on the lower end but stable maintained on home lisinopril, lopressor. Monitor BP and adjust treatment as needed (5) Tobacco abuse: Code(s): Z72.0 - Tobacco use Status: Chronic Assessment and Plan: Cessation encouraged which will also be important to promote wound healing. Subjective Date/time seen: 08/25/20 0945 Interval history: Mr. Miranda is a 49yo M admitted for acute osteomyelitis right foot now POD#4 s/p right 3rd ray amputation. His pain is well controlled today and he is feeling well. He offers no complaints, ready to discharge. No chest pain, shortness of breath, nausea or vomiting. Review of Systems Review of Systems: All systems reviewed & are unremarkable except as noted in HPI and below Exam Narrative: Exam Narrative: General: Well-developed male resting comfortably sitting up on edge of bed in no acute distress. HEENT: PERRL, EOMI. Sclerae anicteric. Oral mucosa moist. Respiratory: Lungs are clear to auscultation bilaterally. Cardiovascular: Regular rate and rhythm. Gastrointestinal: Abdomen is soft, obese, nontender, and nondistended with positive bowel sounds. Skin: Warm and dry. Right foot wound dressing clean/dry/intact. This dressing was just placed by orthopedic surgery and was not removed for my exam. Please see the orthopedic surgery exam. Extremities: No cyanosis or clubbing. There is still some pitting edema of the right lower leg 1+ below the knee. KAYCEE radial and left pedal pulse palpable. Neurological: Alert. No gross focal deficits to casual conversation. Speech is clear. Objective Data Vital Signs Vital Signs: Last Vital Signs Temp 98.2 F 08/25/20 14:00
[2020-08-25 17:48] LABS: Glucose Point of Care 132 (65-105)
[2020-08-25 20:12] VITALS: PULSE 68
[2020-08-25 20:37] LABS: Glucose Point of Care 180 (65-105)
[2020-08-25 21:01] VITALS: BP 140/80; PULSE 79; RESP 16; TEMP 36.4; O2SAT 99
[2020-08-26] MEDS: CENTRAL LINE FLUSH 10 ML IV PUSH (05:07)
[2020-08-26] MEDS: HYDROcodone/acetaminophen (*CRX) 7.5-325 MG TABLET 1 TAB PO ×2 (05:09→10:02)
[2020-08-26 05:24] VITALS: BP 117/62; PULSE 66; RESP 18; TEMP 36.4; O2SAT 98
[2020-08-26 05:33] LABS: Basophils Absolute Auto 0.1 K/mm3 (0.0-0.1); Basophils Percent Auto 1.2 % (0.2-1.2); Eosinophils Absolute Auto 0.1 K/mm3 (0-0.3); Eosinophils Percent Auto 2.2 % (0-4.4); Hematocrit 40.2 % (42.0-52.0); Hemoglobin 13.4 g/dL (14.0-18.0); Immature Granulocyte Absolute 0.03 K/mm3 (0.00-0.031); Immature Granulocyte Percent A 0.5 % (0-0.5); Lymphocytes Absolute Auto 2.62 K/mm3 (0.9-3.2); Lymphocytes Percent Auto 40.7 % (18.3-44.2); Mean Corpuscular HGB Conc 33.3 g/dl (32-36); Mean Corpuscular Hemoglobin 29.4 pg (26-34); Mean Corpuscular Volume 88.2 fl (80-100); Mean Platelet Volume 8.1 fl (7.4-10.4); Monocytes Absolute Auto 0.3 K/mm3 (0.1-0.6); Monocytes Percent Auto 4.5 % (2.6-8.5); Neutrophils Absolute Auto 3.3 K/mm3 (1.3-6.7); Neutrophils Percent Auto 50.9 % (45.5-73.1); Platelet Count Result 326 k/mm3 (150-375); Red Blood Count 4.56 M/mm3 (4.6-6.20); Red Cell Distribution Width 12.3 % (11.5-14.5); White Blood Count 6.4 K/mm3 (4.5-10.0)
[2020-08-26 05:47] LABS: Anion Gap 5 mmol/L (8-16); Blood Urea Nitrogen 12 mg/dL (9-20); Carbon Dioxide 30 mmol/L (22-30); Chloride 104 mmol/L (98-107); Estimated CRCL calculation 147 ml/min; Estimated Glomerular Filt Rate > 60; Glucose 124 mg/dL (75-110); Magnesium 1.8 mg/dL (1.6-2.3); Potassium 4.1 mmol/L (3.4-5.0); Sodium 139 mmol/L (137-145)
[2020-08-26 07:42] LABS: Glucose Point of Care 139 (65-105)
[2020-08-26] MEDS: INSULIN HUMAN ISOPHAN/REGULAR 70/30 (*BKC) 100 UNITS/ML 20 UNITS SUB-Q ×2 (07:53→17:09)
[2020-08-26 08:08] VITALS: PULSE 72
[2020-08-26] MEDS: ATORVASTATIN 40 MG TABLET 80 MG BY MOUTH (08:08)
[2020-08-26] MEDS: METOPROLOL TARTRATE 25 MG TABLET BY MOUTH (08:08)
[2020-08-26] MEDS: ASPIRIN 81 MG ENTERIC TABLET PO (08:08)
[2020-08-26] MEDS: DOCUSATE SODIUM 100 MG CAPSULE PO ×2 (08:08→17:08)
[2020-08-26] MEDS: lisinopriL 10 MG TABLET PO (08:09)
--- NOTE | 2020-08-26 08:55 | PM.PNORT ---
Progress Note: A&P Assessment and Plan (1) Acute osteomyelitis of metatarsal bone of right foot: Code(s): M86.171 - Other acute osteomyelitis, right ankle and foot Status: Acute Assessment and Plan: POD #5: Right Foot 3rd Ray Amputation and Debridement with Closure Dressing to be performed daily, transfer to incision line to wick away moisture. Apply 4x4 gauze and cover dry. Wrap with kerlex/KEITH wrap. Post op shoe. PWB post op shoe. Patient comfortable with home dressing changes. Home health on board. Continue IV antibiotics. PICC line in place, dressing changed. Awaiting home infusion arrangements. Plans for follow-up in wound clinic when discharged. Okay to [place] when home health is arranged. Dispo: Home with Home Infusion [facility] wound clinic in 1 week. (2) Diabetic foot ulcer: Qualifiers: Diabetic foot ulcer location: unspecified part of foot Diabetes mellitus type: type 2 Laterality: right Non-pressure ulcer stage: unspecified non-pressure ulcer stage Qualified Code(s): E11.621 - Type 2 diabetes mellitus with foot ulcer; L97.519 - Non-pressure chronic ulcer of other part of right foot with unspecified severity Code(s): E11.621 - Type 2 diabetes mellitus with foot ulcer; L97.509 - Non-pressure chronic ulcer of other part of unspecified foot with unspecified severity Status: Acute (3) Insulin dependent type 2 diabetes mellitus: Code(s): E11.9 - Type 2 diabetes mellitus without complications; Z79.4 - detention (current) use of insulin Status: Chronic Subjective Subjective Date/Time Seen: 08/26/20 08:55 No new complaints. Anxious to get home. Awaiting coordination of IV antibiotics and home health. Review of Systems Constitutional: Constitutional: Reports no additional constitutional complaints, Denies excessive sweating, Denies fever(s), Denies headache(s), Denies increased appetite and Denies weight gain Eyes: Eyes: Reports no additional eye complaints and Denies change in vision ENT: Reports system reviewed and no additional complaints, except as documented and Reports Normal hearing present Cardiovascular: Cardiovascular: Denies chest pain, Denies diaphoresis, Denies leg ulcers and Denies dyspnea on exertion Respiratory: Respiratory: Reports no additional respiratory complaints, Denies cough and Denies dyspnea on exertion Gastrointestinal: Gastrointestinal: Reports no additional gastrointestinal complaints, Denies abdominal pain, Denies constipation, Denies nausea and Denies vomiting Genitourinary: Genitourinary: Reports no additional male genitourinary complaints, Denies hematuria and Denies urinary frequency Musculoskeletal: Musculoskeletal: Reports no additional musculoskeletal complaints and Reports as per HPI Integumentary/Breasts: Skin/Breast: Reports as per HPI Neurologic: Reports Normal hearing present Psychiatric: Psychiatric: Reports no additional psychiatric complaints Endocrine: Endocrine: Reports no additional endocrine complaints, Denies change in body appearance, Denies excessive sweating, Denies polyphagia, Denies polydipsia and Denies polyuria Hematologic/Lymphatic: Hematologic/Lymphatic: Reports no additional hematologic/lymphatic complaints Exam Const: General: cooperative, comfortable and no acute distress Nutritional Appearance: obese Orientation/consciousness: patient oriented x3 Limitations: no limitations HENMT: Head: normocephalic Ears: hearing grossly normal bilaterally General nose exam: Normal external nose present Face and sinus: normal facial exam Mouth: Yes moist mucous membranes Teeth and gingiva: dentition normal Eyes: General: appearance normal, both eyes and all related structures Sclera: sclerae normal Pupils: Equal, round and reactive pupils present Neck: Neck: supple and no JVD Chest: Chest palpation & inspection: normal inspection of the chest Resp: Effort & Inspection: normal respiratory effort Cardio
--- NOTE | 2020-08-26 10:18 | PM.PROC ---
Procedure Note - Detailed Date of procedure: 08/26/20 Pre-op diagnosis: Osteomyelitis Right Foot Description of procedure: Excisional debridement diabetic foot ulcer Surgeon: Royer Burton MD
--- NOTE | 2020-08-26 11:54 | PCNWS ---
Weekly nutritional screen. Patient is tolerating current diet with adequate intake. No weight loss reported. No nutritional needs at this time.
--- NOTE | 2020-08-26 12:38 | PCNSR ---
On 08/26/20, the student, Louisa Santizo, provided care and completed [facility] documentation on this patient. I have reviewed the student's documentation and agree with the findings.
[2020-08-26 12:39] LABS: Glucose Point of Care 133 (65-105)
[2020-08-26 14:00] VITALS: BP 115/55; PULSE 69; RESP 15; TEMP 36.8; O2SAT 95
--- NOTE | 2020-08-26 15:40 | PM.IMPN ---
Progress Note: A&P Assessment and Plan (1) Acute osteomyelitis of metatarsal bone of right foot: Code(s): M86.171 - Other acute osteomyelitis, right ankle and foot Status: Acute Assessment and Plan: Imaging demonstrated osteomyelitis to right 3rd metatarsal and right 3rd proximal middle phalanges with pathologic fractures. -POD#5 s/p right 3rd ray amputation. -Continue ID recommendations, appreciate input - on Zosyn (day 7) through 09/17/20. -Blood cultures are negative. - Surgical wound cultures are growing multiple organisms; Bacteroides, Proteus, Group C Strep. -awaiting insurance authorization for outpatient antibiotics -follow-up with Dr. concepcion in his office, I discussed this with him (2) Diabetic foot ulcer: Qualifiers: Diabetic foot ulcer location: unspecified part of foot Diabetes mellitus type: type 2 Laterality: right Non-pressure ulcer stage: unspecified non-pressure ulcer stage Qualified Code(s): E11.621 - Type 2 diabetes mellitus with foot ulcer; L97.519 - Non-pressure chronic ulcer of other part of right foot with unspecified severity Code(s): E11.621 - Type 2 diabetes mellitus with foot ulcer; L97.509 - Non-pressure chronic ulcer of other part of unspecified foot with unspecified severity Status: Acute Assessment and Plan: As above (3) Insulin dependent type 2 diabetes mellitus: Code(s): E11.9 - Type 2 diabetes mellitus without complications; Z79.4 - skilled nursing (current) use of insulin Status: Chronic Assessment and Plan: Last glucose 133 -Hgb A1c 6.8% -He reports taking 40 units of 70-30 insulin in the morning and at night, resumed at a lower dose (20 units BID) and blood sugars are stable today. (4) Hypertension: Code(s): I10 - Essential (primary) hypertension Status: Chronic Assessment and Plan: Last bp 115/55. -Continue lopressor (5) Tobacco abuse: Code(s): Z72.0 - Tobacco use Status: Chronic Assessment and Plan: Cessation encouraged which will also be important to promote wound healing. Time Spent With Patient Time with patient: 25 - 35 minutes Subjective Date/time seen: 08/26/20 15:40 Interval history: Mr. Miranda is a 49yo M admitted for acute osteomyelitis right foot now POD#5 s/p right 3rd ray amputation. His pain is well controlled today and he is feeling well. He is up walking around the room with no issues. He offers no complaints, ready to discharge. Pt denies nausea, vomiting, fevers, chills, constipation, diarrhea, chest pain, sob, or abdominal pain. Review of Systems Review of Systems: All systems reviewed & are unremarkable except as noted in HPI and below Exam Narrative: Exam Narrative: General: Well developed well nourished patient in NAD HEENT: normocephalic Neck: supple Neuro: Alert and oriented x4 CV:RRR Resp:CTA Abd: Soft, non distended. No pain to palpation. Positive bowel sounds Extremities: Right lower extremity with mild swelling and bandage intact. This was just evaluated by Ortho, please see their note. Sensation and pulses intact Objective Data Vital Signs Vital Signs: Vital Signs - 24 hr 08/25/20 20:12 08/25/20 21:01 08/26/20 05:24 Temperature 97.6 F 97.6 F Pulse Rate 68 79 66 Respiratory Rate 16 18 Blood Pressure 140/80 117/62 Pulse Oximetry 99 98 08/26/20 08:08 08/26/20 14:00 Temperature 98.2 F Pulse Rate 72 69 Respiratory Rate 15 Blood Pressure 115/55 L Pulse Oximetry 95 Intake/Output Intake/Output: Intake & Output 08/23/20 08/24/20 08/25/20 08/26/20 23:59 23:59 23:59 23:59 Intake Total 2840 2250 2800 1270 Output Total 1200 1950 1250 400 Balance 4038 426 0178 870 Meds/Results Medications: Active Medications Generic Name Dose Route Start Last Admin Trade Name Freq PRN Reason Stop Dose Admin Hydrocodone Bitart/Acetaminophen 1 tab 08/22/20 10:53 08/26/20 10:02 Hydrocodone/
--- NOTE | 2020-08-26 16:00 | PM.DS ---
DS: Admitting Diagnosis Admitting Diagnosis Admitting Diagnosis: Osteomyelitis DS: Discharge Diagnosis Discharge Diagnosis (1) Acute osteomyelitis of metatarsal bone of right foot: Code(s): M86.171 - Other acute osteomyelitis, right ankle and foot Status: Acute Assessment and Plan: Imaging demonstrated osteomyelitis to right 3rd metatarsal and right 3rd proximal middle phalanges with pathologic fractures. -POD#5 s/p right 3rd ray amputation. -Received Zosyn x 7 days at the hospital and will continue through 09/17/20. -Blood cultures are negative. - Surgical wound cultures are growing multiple organisms; Bacteroides, Proteus, Group C Strep. -awaiting insurance authorization for outpatient antibiotics -follow-up with Dr. concepcion in his office, I discussed this with him (2) Diabetic foot ulcer: Qualifiers: Diabetic foot ulcer location: unspecified part of foot Diabetes mellitus type: type 2 Laterality: right Non-pressure ulcer stage: unspecified non-pressure ulcer stage Qualified Code(s): E11.621 - Type 2 diabetes mellitus with foot ulcer; L97.519 - Non-pressure chronic ulcer of other part of right foot with unspecified severity Code(s): E11.621 - Type 2 diabetes mellitus with foot ulcer; L97.509 - Non-pressure chronic ulcer of other part of unspecified foot with unspecified severity Status: Acute Assessment and Plan: As above (3) Insulin dependent type 2 diabetes mellitus: Code(s): E11.9 - Type 2 diabetes mellitus without complications; Z79.4 - halfway (current) use of insulin Status: Chronic Assessment and Plan: Last glucose 114 -Hgb A1c 6.8% (4) Hypertension: Code(s): I10 - Essential (primary) hypertension Status: Chronic Assessment and Plan: Last bp 115/55. -Continue lopressor (5) Tobacco abuse: Code(s): Z72.0 - Tobacco use Status: Chronic Assessment and Plan: Cessation encouraged which will also be important to promote wound healing. DS: Summary Hospital Course Hospital Course: Patient is a 50-year-old male with history of diabetes and prior history of osteomyelitis who presented emergency room on August 19, 2020 over right foot wound found to have osteomyelitis. A right foot 3rd ray amputation and debridement by Dr. Burton on August 21, 2020. The patient also received Zosyn for 7 days during his hospitalization. Infectious Disease was consulted and suggested that he continue Zosyn until September 17, 2020. After a short wait, we were able to obtain home IV antibiotics and a PICC line was placed. He is also going to follow up with the wound clinic. The day of discharge he was feeling well and independent in the room. I spoke with him about following up with Dr. concepcion before he completes his antibiotics. He agrees and understands. He was educated about the worrisome signs and symptoms to come back to emergency room for and was discharged in stable condition on 08/26/20 Status at Discharge Functional status at discharge: independent ambulation Overall status at discharge: patient is progressing back to baseline Time Spent with Patient Time attestation: Total time spent providing and/or coordinating discharge services:38 min Time spent: Greater than 30 minutes Exam Narrative: Exam Narrative: General: Well developed well nourished patient in NAD HEENT: normocephalic Neck: supple Neuro: Alert and oriented x4 CV:RRR Resp:CTA Abd: Soft, non distended. No pain to palpation. Positive bowel sounds Extremities: Right lower extremity with mild swelling and bandage intact. This was just evaluated by Ortho, please see their note. Sensation and pulses intact DS: Data Data Completed and Pending Pending studies at discharge: Pending at discharge 08/21/20 14:11 Surgical [PTH] Routine Labs on day of discharge: Labs from last 24 hours 08/26/20 08/26/20 08/26/20 16:34
[2020-08-26 16:36] LABS: Glucose Point of Care 114 (65-105)
== END 2020-08-26 18:00 | disposition home health service (06) | DRG 305 ==
LOC: ANHED 16:22 → ANH2MED 08-20 07:08
PROVIDERS: Orthopaedic Surgery; Physician Assistant; Admitting Provider Family Medicine; Emergency Provider Emergency Medicine; Visit Provider Physician Assistant
PROC: 0Y6M0ZC Detachment at Right Foot, Partial 3rd Ray, Open Approach (ICD-10-PCS; principal; 2020-08-21 13:30)
DX: E11.69 Type 2 diabetes mellitus with other specified complication (principal); M86.171 Other acute osteomyelitis, right ankle and foot; B95.4 Other streptococcus as the cause of diseases classified elsewhere; B96.89 Other specified bacterial agents as the cause of diseases classified elsewhere; M84.474A Pathological fracture, right foot, initial encounter for fracture; E11.621 Type 2 diabetes mellitus with foot ulcer; L97.519 Non-pressure chronic ulcer of other part of right foot with unspecified severity; I10 Essential (primary) hypertension; F17.210 Nicotine dependence, cigarettes, uncomplicated; E78.5 Hyperlipidemia, unspecified; E66.9 Obesity, unspecified; Z68.41 Body mass index [BMI] 40.0-44.9, adult; Z79.4 Long term (current) use of insulin
CPT/HCPCS: 36415; 36569; 73630; 73660; 80048; 80053; 82948; 83036; 83735; 85025; 85027; 85652; 86140; 87040; 87070; 87075; 87076; 87077; 87147; 87185; 87186; 87205; 88305; 88311; 96365; 96366; 96367; 96375; 97161; 97165; 99285; A9270; C1751; J0743; J1170; J1815; J2405; J2543; J2704; J3010; J3370; J7120

== ENCOUNTER 2020-09-23 07:45 | Outpatient (RCR) | payer OTHER, SELFPAY ==
--- NOTE | 2020-09-05 09:43 | PM.PNORT ---
Progress Note: A&P Assessment and Plan (1) Acute osteomyelitis of metatarsal bone of right foot: Code(s): M86.171 - Other acute osteomyelitis, right ankle and foot Status: Acute Assessment and Plan: Two weeks, 1 day status post right 3rd ray amputation I and D of diabetic foot ulcer. Dressing change performed today. Wound bed with some maceration and abundant callus formation. Sutures remain intact on the dorsal aspect of the right foot with incision well approximated. Sutures on the plantar aspect of the right foot with mild wound dehiscence. No active drainage. No malodor. Patient to continue daily dressing changes with transfer to the entire aspect of the wound bed and cover with ABD pad and wrapped in Kerlix. Patient to continue home health for IV antibiotics and dressing changes. The patient will follow up in 1 week for re-evaluation at which point we will remove sutures. Reviewed signs and symptoms of infection to report to the emergency room immediately. Recommended patient contacting Dr. Champion is office to schedule follow-up appointment as indicated while patient was in patient. Patient verbalized understanding of plan of care. (2) Diabetic foot ulcer: Qualifiers: Diabetic foot ulcer location: unspecified part of foot Diabetes mellitus type: type 2 Laterality: right Non-pressure ulcer stage: unspecified non-pressure ulcer stage Qualified Code(s): E11.621 - Type 2 diabetes mellitus with foot ulcer; L97.519 - Non-pressure chronic ulcer of other part of right foot with unspecified severity Code(s): E11.621 - Type 2 diabetes mellitus with foot ulcer; L97.509 - Non-pressure chronic ulcer of other part of unspecified foot with unspecified severity Status: Acute (3) Insulin dependent type 2 diabetes mellitus: Code(s): E11.9 - Type 2 diabetes mellitus without complications; Z79.4 - long term care pharmacist (current) use of insulin Status: Chronic Subjective Subjective Date/Time Seen: 09/05/20 09:43 Interval history: Patient is 2 weeks, 1 day status post 3rd ray amputation and I and D of diabetic foot ulcer. He follows up in the [place] wound clinic today for re-evaluation of wound bed. He denies fever, chills, night sweats, nausea, vomiting or diarrhea. He is on IV antibiotics under the direction of Dr. champion until September 17, 2020. He is on Zosyn. No new complaints. Review of Systems Constitutional: Constitutional: Reports no additional constitutional complaints, Denies excessive sweating, Denies fever(s), Denies headache(s), Denies increased appetite and Denies weight gain Eyes: Eyes: Reports no additional eye complaints and Denies change in vision ENT: Reports system reviewed and no additional complaints, except as documented and Reports Normal hearing present Cardiovascular: Cardiovascular: Denies chest pain, Denies diaphoresis, Denies leg ulcers and Denies dyspnea on exertion Respiratory: Respiratory: Reports no additional respiratory complaints, Denies cough and Denies dyspnea on exertion Gastrointestinal: Gastrointestinal: Reports no additional gastrointestinal complaints, Denies abdominal pain, Denies constipation, Denies nausea and Denies vomiting Genitourinary: Genitourinary: Reports no additional male genitourinary complaints, Denies hematuria and Denies urinary frequency Musculoskeletal: Musculoskeletal: Reports no additional musculoskeletal complaints and Reports as per HPI Integumentary/Breasts: Skin/Breast: Reports as per HPI Neurologic: Reports Normal hearing present Psychiatric: Psychiatric: Reports no additional psychiatric complaints Endocrine: Endocrine: Reports no additional endocrine complaints, Denies change in body appearance, Denies excessive sweating, Denies polyphagia, Denies polydipsia and Denies polyuria Hematologic/Lymphatic: Hematologic/Lymphatic: Reports no additional hematologic/lymphatic complaints Exam Const: General: cooperative, comfort
--- NOTE | 2020-09-12 09:11 | PM.PNORT ---
Progress Note: A&P Assessment and Plan (1) Acute osteomyelitis of metatarsal bone of right foot: Code(s): M86.171 - Other acute osteomyelitis, right ankle and foot Status: Acute Assessment and Plan: 3 weeks, 1 day status post right 3rd ray amputation I and D of diabetic foot ulcer. Dressing change performed today. Wound bed with some maceration and abundant callus formation. Sutures remain intact on the dorsal aspect of the right foot with incision well approximated. Sutures on the plantar aspect of the right foot with wound dehiscence. No active drainage. No malodor. Indicated for debridement of wound dehiscence on the plantar aspect. Performed today without difficulty to the subcutaneous layer. Patient to continue daily dressing changes with transfer to the entire aspect of the wound bed and cover with ABD pad and wrapped in Kerlix. Patient has labs ordered with home health. His antibiotics were stopped pending new blood culture results. The patient will follow up in 1 week for re-evaluation. Reviewed signs and symptoms of infection to report to the emergency room immediately. Patient verbalized understanding of plan of care. (2) Diabetic foot ulcer: Qualifiers: Diabetic foot ulcer location: unspecified part of foot Diabetes mellitus type: type 2 Laterality: right Non-pressure ulcer stage: unspecified non-pressure ulcer stage Qualified Code(s): E11.621 - Type 2 diabetes mellitus with foot ulcer; L97.519 - Non-pressure chronic ulcer of other part of right foot with unspecified severity Code(s): E11.621 - Type 2 diabetes mellitus with foot ulcer; L97.509 - Non-pressure chronic ulcer of other part of unspecified foot with unspecified severity Status: Acute (3) Insulin dependent type 2 diabetes mellitus: Code(s): E11.9 - Type 2 diabetes mellitus without complications; Z79.4 - intermediate (current) use of insulin Status: Chronic Subjective Subjective Date/Time Seen: 09/12/20 09:11 patient returns for follow-up [facility] outpatient wound clinic. Right diabetic foot ulcer with gangrene and osteomyelitis of the 3rd ray. Three weeks status post amputation. Patient has home health for assistance. No interim complaints. Exam Const: General: cooperative, comfortable and no acute distress Nutritional Appearance: obese Orientation/consciousness: patient oriented x3 Limitations: no limitations HENMT: Head: normocephalic Ears: hearing grossly normal bilaterally General nose exam: Normal external nose present Face and sinus: normal facial exam Mouth: Yes moist mucous membranes Teeth and gingiva: dentition normal Eyes: General: appearance normal, both eyes and all related structures Sclera: sclerae normal Pupils: Equal, round and reactive pupils present Neck: Neck: supple and no JVD Chest: Chest palpation & inspection: normal inspection of the chest Resp: Effort & Inspection: normal respiratory effort Cardio: Jugular venous distension: no JVD Rate: regular rate Rhythm: regular rhythm GI: Inspection: non-distended GI Palp: Yes Soft to palpation and No Tenderness to palpation present (GI) Skin: Wounds: wounds noted ( Right 3rd ray and plantar foot.) Neuro: General: gait normal Cognition (Neuro): normal cognition Speech: normal speech Other: decreased sensation b/l feet due to chronic neuropathy Extrem: Right lower extremity: normal to inspection, lower leg (mild swelling ), ankle and foot (Incision on the dorsal aspect of the 1st MTP joint well healed. ) Details: normal capillary refill, abnormal to inspection ( Surgical incision forefoot), vascular exam Details: dorsalis pedis pulse present and normal capillary refill and motor-sensory exam Details: two point discrimination abnormal Location: in all toes and light-touch abnormal Location: in all toes; no ecchymosis Left lower extremity: normal to inspection and foot (No open ulcers ) Details: normal capillary ref
--- NOTE | 2020-09-12 09:15 | PM.PROC ---
Procedure Note - Detailed Date of procedure: 09/12/20 Pre-op diagnosis: right foot diabetic ulcer s/p 3rd toe amputation Post-op diagnosis: same Procedure performed: debridement including skin and subcutaneous tissue right foot Description of procedure: Patient identified and informed consent given. right foot sterilized with alcohol prep solution. Fifteen blade knife used to sharply excise devitalized tissue from right foot ulcer areas. ulcer 3 by 1 x 1 cm Viable tissue left in place. Skin and subcutaneous tissue layers debrided. Bleeding controlled with local pressure. Sterile dressing applied. Patient tolerated without incident. Anesthesia: none Surgeon: Royer Burton MD Passenger Service Representative: TAL Greenberg Estimated blood loss (mL): 1 Drains: No Packing: Yes Pathology: none sent Complications: None Condition: stable Disposition: other ( home with home health)
--- NOTE | 2020-09-19 12:22 | PCWOUND ---
WOCN NOTE patient did not show up for appointment or call. Dr Lujan office to follow up.
--- NOTE | 2020-09-23 16:40 | PM.PNORT ---
Progress Note: A&P Assessment and Plan (1) Acute osteomyelitis of metatarsal bone of right foot: Code(s): M86.171 - Other acute osteomyelitis, right ankle and foot Status: Acute Assessment and Plan: Patient is now 4 weeks, 5 days status post right 3rd ray amputation I&D of right diabetic foot ulcer. Dressing change performed today. Dorsal incision line now well approximated and closed. Plantar ulcer on the bottom of the 3rd MTP joint measures 1.0 x 0.7 x 0.9 cm, 100% red /pink wound bed. No signs of active infection. No purulence, no malodor. Mild serosanguineous drainage. Abundant surrounding callus formation noted and debrided accordingly. Patient to continue daily dressing changes with silver gel, Chen, Endoform, Mepilex foam and ABD pad. Patient to cover than with gauze roll in transfer. Patient is no longer on IV antibiotics. No evidence for need for oral antibiotics at this time. Patient will follow up in 1 week for re-evaluation. We reviewed signs and symptoms of worsening infection to report to the emergency room immediately. Patient verbalized understanding agrees with plan of care. No further questions. (2) Diabetic foot ulcer: Qualifiers: Diabetic foot ulcer location: unspecified part of foot Diabetes mellitus type: type 2 Laterality: right Non-pressure ulcer stage: unspecified non-pressure ulcer stage Qualified Code(s): E11.621 - Type 2 diabetes mellitus with foot ulcer; L97.519 - Non-pressure chronic ulcer of other part of right foot with unspecified severity Code(s): E11.621 - Type 2 diabetes mellitus with foot ulcer; L97.509 - Non-pressure chronic ulcer of other part of unspecified foot with unspecified severity Status: Acute Assessment and Plan: Reviewed importance of diabetic diet. (3) Insulin dependent type 2 diabetes mellitus: Code(s): E11.9 - Type 2 diabetes mellitus without complications; Z79.4 - FDC (current) use of insulin Status: Chronic Assessment and Plan: Reviewed importance of proper medical management to prevent recurrent diabetic foot ulcers. Patient will need custom orthotics and depth shoes pending closure of wound. Will arrange for this next week. Subjective Subjective Date/Time Seen: 09/23/20 0830 50-year-old male presents today 4 weeks, 5 days status post right 3rd ray amputation. Patient reports no signs or symptoms of worsening infection at this time. He denies fever, chills, night sweats, nausea, vomiting or diarrhea. He has been performing daily dressing changes without complications. No new complaints today. Review of Systems Constitutional: Constitutional: Reports no additional constitutional complaints, Denies excessive sweating, Denies fever(s), Denies headache(s), Denies increased appetite and Denies weight gain Eyes: Eyes: Reports no additional eye complaints and Denies change in vision ENT: Reports system reviewed and no additional complaints, except as documented and Reports Normal hearing present Cardiovascular: Cardiovascular: Denies chest pain, Denies diaphoresis, Denies leg ulcers and Denies dyspnea on exertion Respiratory: Respiratory: Reports no additional respiratory complaints, Denies cough and Denies dyspnea on exertion Gastrointestinal: Gastrointestinal: Reports no additional gastrointestinal complaints, Denies abdominal pain, Denies constipation, Denies nausea and Denies vomiting Genitourinary: Genitourinary: Reports no additional male genitourinary complaints, Denies hematuria and Denies urinary frequency Musculoskeletal: Musculoskeletal: Reports no additional musculoskeletal complaints and Reports as per HPI Integumentary/Breasts: Skin/Breast: Reports as per HPI Neurologic: Reports Normal hearing present Psychiatric: Psychiatric: Reports no additional psychiatric complaints Endocrine: Endocrine: Reports no additional endocrine complaints, Denies change in body appearance, Denies
--- NOTE | 2020-10-03 09:30 | PCWOUND ---
WOCN NOTE patient did not show up for his scheduled appointment. No phone call was made to cancel.
== END 2020-10-29 14:41 | disposition home or self-care (01) ==
LOC: ANHWOC 07:45
PROVIDERS: Referring Provider Orthopaedic Surgery; Visit Provider Nurse Practitioner Family
DX: Z47.81 Encounter for orthopedic aftercare following surgical amputation (principal); Z89.421 Acquired absence of other right toe(s)
CPT/HCPCS: 11042; 99213; G0463

== ENCOUNTER 2020-12-18 12:22 | Inpatient (IN) | payer OTHER, SELFPAY ==
--- NOTE | ~2020-12-18 | US_ITS ---
EXAMINATION: US venous doppler LE RT DATE: 12/18/2020 15:10 INDICATION: Right lower limb pain TECHNIQUE: Grayscale ultrasound images without and with compression and Doppler ultrasound images of the right lower extremity veins were obtained. COMPARISON: None. FINDINGS: The visualized portions of right common femoral vein, profunda (deep) femoral vein, femoral vein, pop liteal vein, peroneal trunk, posterior tibial veins, peroneal veins, gastrocnemius vein and greater s aphenous vein outflow are patent. IMPRESSION: 1. No deep venous thrombosis in the right lower limb. Reviewed, dictated and finalized at location A.
--- NOTE | ~2020-12-18 | MR_ITS ---
EXAMINATION: MR foot RT wo/w con DATE: 12/19/2020 13:12 INDICATION: Right foot osteomyelitis TECHNIQUE: Magnetic resonance imaging (MRI) of the right fore/mid foot was performed without and with 20 mL Multihance intravenous contrast. Sequences included axial, sagittal and coronal T1-weighted FS E and T2-weighted FS FSE, axial T1-weighted FS FSE and axial and coronal T1-weighted FS FSE . COMPARISON: Right foot radiographs dated 12/18/2020 and 08/19/2020 FINDINGS: Amputation of the right third toe with transjugular metatarsal osteotomy. There is nonspecific mild m arrow edema and enhancement in the remaining diaphysis of the third metatarsal without geographic los s of T1 marrow signal to more specifically suggest osteomyelitis and this likely represents residual reactive change related to the relatively recent prior fusion. Advanced arthritis at the second and third metatarsophalangeal joints with chronic destructive change s at the base of the first proximal phalanx, the heads of the first and second metatarsals and to les ser degree the base of the second proximal phalanx. There is underlying and mild subarticular marrow edema along both sides of both joint spaces and enhancement. In addition there are cystic changes at the heads of the first and second metatarsals. There is loss of T1 marrow fat signal at the distal ma rgin of the head of the first metatarsal which could be due to osteomyelitis or residual sclerosis re lated to chronic osteomyelitis. No nonenhancing necrotic bone identified. There is a deep ulceration plantar to the base of the first proximal phalanx with peripherally enhanc ing sinus tract extending to communicate with the flexor hallucis longus tendon sheath. There is prom inent enhancing tenosynovitis extending on the tendon sheath distally to the insertion and proximally to the level of the master knot of [place] consistent with likely septic tenosynovitis. Marked fusifor m thickening and linear increased intrasubstance signal within the tendon centered at the level of th e first tarsal metatarsal joint consistent with severe tendinopathy and longitudinal split tearing. T here is diffuse edema and non-masslike enhancement scattered throughout the intrinsic musculature of the foot. No abscess or nonenhancing necrotic muscle. IMPRESSION: 1. Deep ulceration with sinus tract extending to the flexor hallucis longus longus tendon sheath wher e there likely septic tenosynovitis. No discrete abscess. 2. Moderate tendinopathy and longitudinal split tearing of the flexor hallucis longus tendon. 3. 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 Nonspecific marrow sign al changes in the heads of the first and second metatarsals and base of the first and second proximal phalanges which could be reactive related to be secondary osteoarthritis although osteomyelitis annabel ot be excluded. Suspicion for osteomyelitis is low at the second metatarsal and base of the first and second proximal phalanges and moderate at the head of the first metatarsal. 4. Likely residual reactive marrow edema at the remaining diaphysis of the third metatarsal post mcgee smetatarsal osteotomy for third toe amputations. Osteomyelitis cannot be absolutely excluded but woul d be considered unlikely given the lack of appreciable osteolysis and the presence of well-defined ne o cortication along the osteotomy margin on the radiographs from one day prior. Reviewed, dictated and finalized at location A. IMPRESSION: 1. Deep ulceration with sinus tract extending to the flexor hallucis longus porfirio mk tendon sheath where there likely septic tenosynovitis. No discrete abscess
--- NOTE | ~2020-12-18 | XR_ITS ---
EXAMINATION: XR foot RT min 3V DATE: 12/18/2020 13:24 INDICATION: Right foot swelling with prior right foot infection TECHNIQUE: Dorsoplantar, two oblique and lateral views of the right foot were obtained. COMPARISON: 08/19/2020 FINDINGS: Interval indentation of the right third toe with third transmetatarsal osteotomy. There is a smoothly corticated calcific formation about the osteotomy margin. Again seen is widening of the second and t hird metatarsophalangeal joints with stable appearance of chronic erosive changes with irregular scle rotic margins at both sides of both joint spaces consistent with likely chronic septic arthritis and osteomyelitis. Remaining joint spaces are relatively preserved. No new or progressive erosions to mor e specifically suggest recurrent osteomyelitis. No fractures. Moderate-sized plantar calcaneal spur. Persistent diffuse soft tissue swelling about the foot most prominent at the medial side of the foref oot. IMPRESSION: 1. Relatively stable appearance of joint space widening with periarticular osteolysis with irregular sclerotic margins at the first and second metatarsophalangeal joints consistent with sequela of chron ic septic arthritis and osteomyelitis. No definitive progressive osteolysis to more specifically sugg est recurrent or ongoing osteomyelitis. 2. Interval amputations of the right third toe with corticated calcific formation without evident ost eomyelitis at the third metatarsal osteotomy margin. Reviewed, dictated and finalized at location A. IMPRESSION: 1. Relatively stable appearance of joint space widening with periarticular oste olysis with irregular sclerotic margins at the first and second metatarsophalan geal joints consistent with sequela of chronic septic arthritis and osteomyelit is. No definitive progressive osteolysis to more specifically suggest recurrent or ongoing osteomyelitis. 2. Interval amputations of the right third toe with corticated calcific formati on without evident osteomyelitis at the third metatarsal osteotomy margin.
[2020-12-18 12:24] VITALS: BP 109/58; PULSE 74; RESP 18; TEMP 35.9; O2SAT 97
[2020-12-18 12:34] LABS: Basophils Absolute Auto 0.1 K/mm3 (0.0-0.1); Basophils Percent Auto 0.6 % (0.2-1.2); Eosinophils Absolute Auto 0.1 K/mm3 (0-0.3); Eosinophils Percent Auto 1.5 % (0-4.4); Hematocrit 45.9 % (42.0-52.0); Hemoglobin 15.4 g/dL (14.0-18.0); Immature Granulocyte Absolute 0.09 K/mm3 (0.00-0.031); Immature Granulocyte Percent A 1.1 % (0-0.5); Lymphocytes Absolute Auto 1.95 K/mm3 (0.9-3.2); Lymphocytes Percent Auto 23.7 % (18.3-44.2); Mean Corpuscular HGB Conc 33.6 g/dl (32-36); Mean Corpuscular Hemoglobin 29.3 pg (26-34); Mean Corpuscular Volume 87.4 fl (80-100); Mean Platelet Volume 8.5 fl (7.4-10.4); Monocytes Absolute Auto 0.5 K/mm3 (0.1-0.6); Monocytes Percent Auto 6.1 % (2.6-8.5); Neutrophils Absolute Auto 5.5 K/mm3 (1.3-6.7); Platelet Count Result 347 k/mm3 (150-375); Red Blood Count 5.25 M/mm3 (4.6-6.20); Red Cell Distribution Width 12.5 % (11.5-14.5); White Blood Count 8.2 K/mm3 (4.5-10.0)
[2020-12-18 12:51] LABS: Alanine Aminotransferase 16 U/L (4-50); Albumin Level 3.7 g/dL (3.5-5.1); Alkaline Phosphatase 150 U/L (38-126); Anion Gap 6 mmol/L (8-16); Aspartate Amino Transferase 26 U/L (17-59); Bilirubin,Total 0.3 mg/dL (0.2-1.3); Blood Urea Nitrogen 15 mg/dL (9-20); CRP 7.9 mg/dL (<1.0); Calcium 9.2 mg/dL (8.4-10.2); Carbon Dioxide 29 mmol/L (22-30); Chloride 101 mmol/L (98-107); Estimated CRCL calculation 132 ml/min; Estimated Glomerular Filt Rate > 60; Glucose 238 mg/dL (75-110); Sodium 136 mmol/L (137-145)
--- NOTE | 2020-12-18 13:24 | ED.EXTPRO ---
HPI - Extremity Problem General Chief complaint: Extremity Problem,Nontraumatic Stated complaint: right foot swollen Time Seen by Provider: 12/18/20 13:24 Source: patient Mode of arrival: ambulatory Limitations: no limitations History of Present Illness HPI Narrative: Patient is a 50-year-old male with a history of type 2 diabetes, osteomyelitis in the right foot who presents for evaluation of worsening right foot edema, redness and pain. Patient states his right foot became red and swollen 2 days ago after he hit his foot on the ground. He reports pain at the site as well as redness, swelling and some bruising. He denies fever, chills, chest pain, shortness of breath. Pain is dull, aching in nature. No nausea or vomiting. Patient has had surgery performed by Dr. Burton in the past. Related Data Home Medications Medication Instructions Recorded Confirmed lisinopril 10 mg PO DAILY 01/01/20 09/05/20 Humulin 70/30 U-100 Insulin 40 unit SUBCUT BID 08/19/20 09/05/20 Jardiance 10 mg DAILY 08/19/20 09/05/20 aspirin 81 mg PO DAILY 08/19/20 09/05/20 atorvastatin 80 mg DAILY 08/19/20 08/19/20 metoprolol tartrate 25 mg BID 08/19/20 09/05/20 Allergies Allergy/AdvReac Type Severity Reaction Status Date / Time amoxicillin Allergy Intermediate Swelling Verified 12/18/20 13:14 clavulanic acid Allergy Intermediate Swelling Verified 12/18/20 13:14 Review of Systems Review of Systems: Narrative: CONSTITUTIONAL: Denies fever, chills, or sweats. EYES: Denies visual changes, redness, or discharge. ENT: Denies rhinorrhea, congestion, sore throat, or otalgia. CARDIOVASCULAR: Denies chest pain, palpitations, reports right leg edema RESPIRATORY: Denies cough or dyspnea. GASTROINTESTINAL: Denies abdominal pain, nausea, vomiting, or diarrhea. GENITOURINARY: Denies dysuria or hematuria. SKIN: Denies rash or itching. MUSCULOSKELETAL: Denies back pain, reports right foot pain, reports redness, swelling NEUROLOGIC: Denies headache, numbness, or weakness. COUNT INCLUDES THE [facility] Past Medical History Medical History (Updated 12/18/20 @ 16:26 by Shari Navarro MD) COPD (chronic obstructive pulmonary disease) Diabetic foot ulcer Hypercholesterolemia Hypertension Insulin dependent type 2 diabetes mellitus Osteomyelitis Septic arthritis Tobacco abuse Surgical History Surgical History (Updated 12/18/20 @ 16:24 by TAL Guzmán) History of foot surgery (~2018) Per Dr. Burton: 1. Excision of osteomyelitis from the right foot first and second metatarsal heads. 2. Incision of the hallux metatarsophalangeal joint with removal of septic arthritis. Status post amputation of toe Right 3rd Ray Amp 07/2020 Left 2n Ray Amp Family History Family History Other Adopted Social History Social History Social History: The patient lives in [place]. He is on disability. He has smoked up to a pack of cigarettes per day off and on for many years, now smokes about 5-10 cigarettes a day. Occasional marijuana use. Drinks alcohol socially and in moderation. He designates his brother as his surrogate decision maker and he wishes to be a full code. Smoking packs per day: 0.5 Smoking cigarettes per day: 10.0 Years smoked: 35 Smoking pack-years: 17.50 Smoking status: Current some day smoker Tobacco type: cigarettes Second hand tobacco smoke exposure: Yes Additional smoking assessment comments: had previously quit, past month has been smoking on and off Alcohol intake: current Drinks per week: 2 Substance use: current Substance use type: marijuana Other substance usage details: currently uses marijuana daily Last use: 08/18/2020 Additional living arrangements comments: Additional occupation/education comments: Gender identity (if verbalized by the patient): Male Spiritual care concerns: No Exam Narrat
[2020-12-18 14:40] VITALS: BP 120/74; PULSE 76; RESP 18; O2SAT 97
[2020-12-18 14:53] LABS: Lactic Acid Reflex 0.9 mmol/L (0.7-2.1)
[2020-12-18 15:10] LABS: Erythrocyte Sedimentation Rate 15 mm/hr (0-20)
[2020-12-18] MEDS: MORPHINE SULFATE (*CRX) 4 MG/ML INJ IV PUSH (15:16)
[2020-12-18] MEDS: ONDANSETRON INJ 4 MG/2 ML VIAL IV PUSH (15:16)
--- NOTE | 2020-12-18 16:10 | PM.IMHP ---
H&P: HPI History of Present Illness Date/Time: 12/18/20 16:10 <Lacey Hogan PA-C - Last Filed: 12/18/20 22:55> Chief Complaint: Right foot swelling. <Lacey Hogan PA-C - Last Filed: 12/18/20 22:55> Narrative: This is a 50-year-old male with insulin-dependent diabetes, hypertension, and hyperlipidemia who presented to the emergency department earlier today via private vehicle from home for evaluation of a right foot swelling. He is known to myself and the hospital service with an admission in July 2020 in which he presented with a right foot wound, found to have osteomyelitis for which he underwent a right third ray amputation per Dr. Burton. Per patient report he has been doing well since that time however couple of days ago he awoke with swelling and redness of the right foot, which he attributed to accidentally striking his foot on the ground. Radiographs today showed findings once again suspicious for septic arthritis or osteomyelitis and he is status post bedside debridement at bedside per Yamileth Greenberg NP with Dr. Burton. He is now being admitted for IV antibiotics. At the time my evaluation he reports a mild, dull aching pain in the right foot. He has not had a fever, chills, or sweats. No nausea or vomiting. <Lacey Hogan PA-C - Last Filed: 12/18/20 22:55> Review of Systems Review of Systems: Narrative: Twelve systems were reviewed with pertinent positives and negatives as per HPI. No sick contacts. He denies cold and flu symptoms. No blurry vision, polydipsia, or polyuria. Glucose has been running around 140 to 150. Except as documented, all other systems were reviewed and are negative. <Lacey Hogan PA-C - Last Filed: 12/18/20 22:55> [facility] Past Medical History Medical History: Medical History (Updated 12/18/20 @ 22:46 by Lacey Hogan PA-C) Chronic obstructive pulmonary disease Diabetic foot ulcer Dyslipidemia Hypertension Insulin dependent type 2 diabetes mellitus Hemoglobin A1c was 7.4% on 12/18/2020. Osteomyelitis (07/2020) Septic arthritis (07/2020) Tobacco abuse <Lacey Hogan PA-C - Last Filed: 12/18/20 22:55> Surgical History Surgical History: Surgical History History of foot surgery (~2018) Per Dr. Burton: 1. Excision of osteomyelitis from the right foot first and second metatarsal heads. 2. Incision of the hallux metatarsophalangeal joint with removal of septic arthritis. 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 Left 2nd Ray amputation. <Lacey Hogan PA-C - Last Filed: 12/18/20 22:55> Family History Family History: Family History Other Adopted <Lacey Hogan PA-C - Last Filed: 12/18/20 22:55> Social History Social History: Social History Social History: The patient lives in [place]. He is on disability. He has smoked up to a pack of cigarettes per day off and on for many years, now smokes about 5-10 cigarettes a day. Occasional marijuana use. Drinks alcohol socially and in moderation. He designates his brother as his surrogate decision maker and he wishes to be a full code. Smoking packs per day: 1 Smoking cigarettes per day: 20.0 Years smoked: 35 Smoking pack-years: 35.00 Smoking status: Current some day smoker Second hand tobacco smoke exposure: Yes Additional smoking assessment comments: past month has been smoking on and off only smoke 1 pk/month Alcohol intake: current Drinks per week: 2 Substance use: current Substance use type: marijuana Other substance usage details: currently uses marijuana x2 week Last use: 08/18/2020 Additional living arrangements comments: Additional occupation/education comments: Gender identity (if verbalized by the patient): Male
--- NOTE | 2020-12-18 16:12 | PM.CNOR ---
Assessment and Plan Assessment and plan (1) Diabetic infection of right foot: Code(s): E11.628 - Type 2 diabetes mellitus with other skin complications; L08.9 - Local infection of the skin and subcutaneous tissue, unspecified Status: Acute Assessment and Plan: History, exam and radiographs with the patient today. 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 No definitive progressive osteolysis to more specifically suggest recurrent or ongoing osteomyelitis. In June of 2018 he did undergo excision of osteomyelitis from the right foot of the 1st and 2nd metatarsal heads as well as an incision of the hallux metatarsal phalangeal joint with removal of septic arthritis by Dr. Burton. Recommended excisional debridement of right dorsal and plantar DFU at the bedside. Debridement of the skin, subcutaneous tissue and muscle debrided under sterile conditions with #15 blade knife. All devitalized tissue including muscle removed. Procedure tolerated well. Underlying ulcers noted, see physical exam. Cultures obtained from the lateral hallux and plantar 1st MTP joint ulcerations. Stat Gram stain, aerobic and anaerobic cultures ordered. Wet to dry dressing placed in both ulcerations area. Covered with 4 x 4 gauze and wrapped with Kerlix. Recommend hemoglobin A1c check as patient is a poor historian regards to his most recent blood sugar control. Will obtain right foot MRI. Continue IV antibiotics. Pain control. Post OP shoe with PWB on the right heel. ID consult recommended. NPO at midnight in the event that surgical intervention is required tomorrow. History of Present Illness HPI Consult date: 12/18/20 Requesting physician: Shari Navarro MD Consult reason: other (Right DFU ) Chief complaint: Infected Diebetic Foot Wound, Osteomyelitis Narrative: 50-year-old male presented [facility] today with concerns of acute onset right foot swelling and new ulcerations on the right great toe. Patient is well known to our orthopedic service for multiple diabetic foot ulcers, toe amputations and debridements. In June of 2018 he underwent excision of osteomyelitis from the right foot of the 1st and 2nd metatarsal heads as well as an incision of the hallux metatarsal phalangeal joint with removal of septic arthritis by Dr. Burton. Of note, his most recent surgical intervention by Dr. Burton was in July 2020 at which point he performed a right foot 3rd ray amputation and debridement excisional diabetic foot ulcer. He did require discharge on IV antibiotics and routine follow up in [facility]. He failed to follow up in the [place] wound clinic after his September appointment. His third ray amputation site is well healed at this time. He reports having hit his foot in bed approximately 3-4 days ago. He then noticed increasing redness warmth and swelling over the last 1-2 days. He regionally planned to seek further evaluation last night but did not have a ride. Worsening with infection was noted this morning which prompted his arrival to the emergency room. 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 No definitive progressive osteolysis to more specifically suggest recurrent or ongoing osteomyelitis. Patient denies fever, night sweats, nausea, vomiting or diarrhea. Intermittent complaints of chills. Patient is unsure her of recent blood glucose levels but states that they have not been higher than normal. Unsure whether not he is adequately monitoring blood glucose levels or managing diabetes appropriately. Orthopedic consult requested by the emergency room MD. Review o
[2020-12-18 16:13] VITALS: BP 98/61; PULSE 79; RESP 18; O2SAT 95
[2020-12-18 17:20] VITALS: BP 122/71; PULSE 77; RESP 18; TEMP 36.7; O2SAT 98
--- NOTE | 2020-12-18 17:20 | ADMGEN ---
This patient, Rashard Miranda, was admitted to Medical Room 254-01. Patient/family oriented to hospital policies and general routines including ID bracelet, bed and alarms, visiting hours, pain management, procedures, bathroom and other care routines, personal items, smoking policy, room service/diet, and visiting hours. Information on how to activate the Rapid Response Team has been discussed. Patient/Family are encouraged to report perceived risks to care and to ask questions if they do not understand what they are told or what they should do.
[2020-12-18 17:49] VITALS: BMI 43.1
[2020-12-18 18:04] LABS: Glucose Point of Care 87 mg/dl (65-105)
[2020-12-18 20:00] VITALS: PULSE 62; RESP 18; O2SAT 96
[2020-12-18 20:06] LABS: Hemoglobin A1C 7.4 % (<5.7)
[2020-12-18 20:20] VITALS: BP 108/55; PULSE 62; RESP 18; TEMP 36.9; O2SAT 96
[2020-12-18 20:27] LABS: Glucose Point of Care 144 mg/dl (65-105)
[2020-12-19 04:51] VITALS: BP 111/77; PULSE 83; RESP 18; TEMP 36.4; O2SAT 93
[2020-12-19 05:24] LABS: Hematocrit 43.1 % (42.0-52.0); Hemoglobin 14.8 g/dL (14.0-18.0); Mean Corpuscular HGB Conc 34.3 g/dl (32-36); Mean Corpuscular Hemoglobin 29.6 pg (26-34); Mean Corpuscular Volume 86.2 fl (80-100); Mean Platelet Volume 8.5 fl (7.4-10.4); Platelet Count Result 319 k/mm3 (150-375); Red Cell Distribution Width 12.3 % (11.5-14.5); White Blood Count 6.8 K/mm3 (4.5-10.0)
[2020-12-19 05:40] LABS: Alanine Aminotransferase 15 U/L (4-50); Albumin Level 3.6 g/dL (3.5-5.1); Alkaline Phosphatase 129 U/L (38-126); Anion Gap 8 mmol/L (8-16); Aspartate Amino Transferase 33 U/L (17-59); Bilirubin,Total 0.2 mg/dL (0.2-1.3); Blood Urea Nitrogen 10 mg/dL (9-20); Calcium 9.2 mg/dL (8.4-10.2); Carbon Dioxide 29 mmol/L (22-30); Chloride 101 mmol/L (98-107); Estimated CRCL calculation 150 ml/min; Estimated Glomerular Filt Rate > 60; Glucose 135 mg/dL (75-110); Magnesium 2.1 mg/dL (1.6-2.3); Potassium 4.2 mmol/L (3.4-5.0); Sodium 138 mmol/L (137-145)
[2020-12-19 09:05] LABS: Glucose Point of Care 153 mg/dl (65-105)
[2020-12-19] MEDS: ENOXAPARIN 40 MG/0.4 ML SYRINGE SUB-Q (09:41)
--- NOTE | 2020-12-19 10:47 | PM.PNORT ---
Progress Note: A&P Assessment and Plan (1) Diabetic infection of right foot: Code(s): E11.628 - Type 2 diabetes mellitus with other skin complications; L08.9 - Local infection of the skin and subcutaneous tissue, unspecified Status: Acute Assessment and Plan: 1 day s/p bedside debridement of right plantar and dorsal hallux DFU. Awaiting MRI of the right foot at this time. Cultures pending. Continue IV antibiotics. Begin daily dressing changes with Aquacel AG rope to the dorsal and plantar foot wounds, see wound care orders. Cleanse wound with soap/water or wound spray prior to changing dressing, nursing aware. Continue PWB of the RLE with post op shoe on heel. Elevate right foot on pillows when in bed. May resume diet. No further surgical intervention planned at this time after evaluation by Dr. Osborne. Will await results of MRI and cultures before determining further need for surgical intervention. Improvement noted with initial initiation of IV antibiotics. Swelling control. Dressing changes. Patient hopeful for salvage of hallux/foot but understands potential need for amputation if inability to heal with conservative effort. May need ID consult pending MRI and culture results. (2) Tobacco abuse: Code(s): Z72.0 - Tobacco use Status: Chronic Assessment and Plan: Patient is currently a smoker. We discussed importance of smoking cessation in regards to diabetic foot ulcer and complications including delayed healing, worsening infections and non-healing wounds. We discussed the [place] Quit Line and the [facility] smoking cessation program. Patient verbalized understanding. (3) Insulin dependent type 2 diabetes mellitus: Code(s): E11.9 - Type 2 diabetes mellitus without complications; Z79.4 - halfway (current) use of insulin Status: Chronic Assessment and Plan: Close diabetic control for optimal healing. Defer to hospitalist team. May benefit from nutrition consult. Additional Plan Dr. Osborne present for assessment and decision for plan of care. Subjective Subjective Date/Time Seen: 12/19/20 10:47 No new complaints. Feeling well. Mild right foot pain. No new concerns. Review of Systems Constitutional: Constitutional: Reports no additional constitutional complaints, Reports chills, Denies excessive sweating, Denies fever(s) and Denies weight gain Eyes: Eyes: Reports no additional eye complaints and Denies change in vision ENT: Reports system reviewed and no additional complaints, except as documented and Reports Normal hearing present Cardiovascular: Cardiovascular: Denies chest pain, Denies diaphoresis, Denies leg ulcers and Denies dyspnea on exertion Respiratory: Respiratory: Reports no additional respiratory complaints, Denies cough and Denies dyspnea on exertion Gastrointestinal: Gastrointestinal: Reports no additional gastrointestinal complaints, Denies abdominal pain, Denies constipation, Denies nausea and Denies vomiting Genitourinary: Genitourinary: Reports no additional male genitourinary complaints, Denies hematuria and Denies urinary frequency Musculoskeletal: Musculoskeletal: Reports as per HPI Integumentary/Breasts: Skin/Breast: Reports as per HPI, Reports lesions, Reports erythema, Reports skin ulcer and Reports wounds Neurologic: Reports Normal hearing present Psychiatric: Psychiatric: Reports no additional psychiatric complaints Endocrine: Endocrine: Reports no additional endocrine complaints, Denies change in body appearance, Denies excessive sweating, Denies polyphagia, Denies polydipsia, Denies polyuria and Reports other (no changes in blood glucose levels. ) Exam Const: General: cooperative, comfortable and no acute distress Nutritional Appearance: obese Orientation/consciousness: patient oriented x3 Limitations: no limitations HENMT: Head: normocephalic Ears: hearing grossly normal bilaterally General nose exam: Normal external no
[2020-12-19 11:43] LABS: Glucose Point of Care 175 mg/dl (65-105)
[2020-12-19 14:00] VITALS: BP 106/51; PULSE 71; RESP 18; TEMP 36.7; O2SAT 98
--- NOTE | 2020-12-19 14:41 | WPDINFPN2 ---
Progress Note: A&P Assessment and Plan (1) Diabetic infection of right foot: Code(s): E11.628 - Type 2 diabetes mellitus with other skin complications; L08.9 - Local infection of the skin and subcutaneous tissue, unspecified Status: Acute Assessment and Plan: R DFI with infected ulcer and cellulitis at the 1st toe, without OM REC PipTazo until AM 6/3, then 7 days Augmentin. Given we are at beginning holiday weekend, I recommend staying here for the duration of IV Subjective Date/time seen: 12/19/20 14:41 Objective Data Vital Signs Vital Signs: Vital Signs - 24 hr 12/18/20 16:13 12/18/20 17:20 12/18/20 20:00 Temperature 36.7 C Pulse Rate 79 77 62 Respiratory Rate 18 18 18 Blood Pressure 98/61 L 122/71 Pulse Oximetry 95 98 96 12/18/20 20:20 12/19/20 04:51 Temperature 36.9 C 36.4 C L Pulse Rate 62 83 Respiratory Rate 18 18 Blood Pressure 108/55 L 111/77 Pulse Oximetry 96 93 Intake/Output Intake/Output: Intake & Output 12/16/20 12/17/20 12/18/20 12/19/20 23:59 23:59 23:59 23:59 Intake Total 750 2064 Balance 750 2064 Meds/Results Medications: Active Medications Generic Name Dose Route Start Last Admin Trade Name Freq PRN Reason Stop Dose Admin Acetaminophen 650 mg 12/18/20 15:55 Acetaminophen 325 Mg Tablet PO Q4H PRN Mild Pain (1-3) or Fever Dextrose 12.5 gm 12/18/20 22:56 Dextrose 50% 25 Gm/50 Ml Syringe IV PUSH PRN PRN Hypoglycemia Protocol Enoxaparin Sodium 40 mg 12/19/20 09:00 12/19/20 09:41 Enoxaparin 40 Mg/0.4 Ml Syringe SUB-Q 40 mg DAILY ILYA Administration Glucagon 1 mg 12/18/20 22:56 Glucagon For Inj 1 Mg Vial IM PRN PRN Hypoglycemia Protocol Glucose 15 gm 12/18/20 22:56 Glucose Oral Gel 15 Gm Of Glucse In 37.5 Gm Tube PO PRN PRN Hypoglycemia Protocol Vancomycin HCl 1,500 mg in 500 mls @ 333.333 mls/hr 12/18/20 16:00 12/19/20 09:18 Vancomycin 1,500 Mg/D5w 500 Ml IVPB Infused Q8H [facility] Infusion Dextrose 1,000 mls @ 100 mls/hr 12/18/20 22:56 Dextrose 5% 1,000 Ml IVPB PRN PRN Hypoglycemia Protocol Imipenem/Cilastatin Sodium 500 mg in 100 mls @ 300 mls/hr 12/18/20 23:30 12/19/20 11:58 Primaxin 500 Mg/D5w 100 Ml IVPB 300 mls/hr Q6HR ILYA Administration Insulin Aspart 3 - 6 units 12/19/20 08:00 12/19/20 11:59 Insulin Aspart (*Bkc) 100 Units/Ml SUB-Q Not Given TIDWM [facility] Protocol Ondansetron HCl 4 mg 12/18/20 15:55 Ondansetron Inj 4 Mg/2 Ml Vial IV PUSH Q4H PRN Nausea Silver Nitrate 1 each 12/19/20 09:00 Aquacel Ag Advantage Bandage (*Bkc) TOPICAL DAILY [facility] Radiology Results: ITS Impressions Foot X-Ray 12/18/20 13:29 IMPRESSION: 1. 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 No definitive progressive osteolysis to more specifically suggest recurrent or ongoing osteomyelitis. 2. Interval amputations of the right third toe with corticated calcific formation without evident osteomyelitis at the third metatarsal osteotomy margin. Venous Doppler Study 12/18/20 15:10 IMPRESSION: 1. No deep venous thrombosis in the right lower limb. Foot MRI 12/19/20 13:15 IMPRESSION: 1. Deep ulceration with sinus tract extending to the flexor hallucis longus longus tendon sheath where there likely septic tenosynovitis. No discrete abscess. 2. Moderate tendinopathy and longitudinal split tearing of the flexor hallucis longus tendon. 3. 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 Nonspecific marrow signal changes in the heads of the first and second metatarsals and base of the first
--- NOTE | 2020-12-19 15:00 | PC.NURSE ---
Pt to MRI per wheelchair at 1211 12/19/20.
--- NOTE | 2020-12-19 15:04 | PM.IMPN ---
Progress Note: A&P Assessment and Plan (1) Diabetic infection of right foot: Code(s): E11.628 - Type 2 diabetes mellitus with other skin complications; L08.9 - Local infection of the skin and subcutaneous tissue, unspecified Status: Acute Assessment and Plan: 12/19/20 15:04 Patient with history of diabetes and diabetic foot ulcer along right hallux/foot, seen by orthopedic team and had bedside debridement of right plantar and dorsal hallux DFU on 12/18, and today patient was seen Dr. concepcion recommending to continue Zosyn until 6 and then patient can switch over oral Augmentin for 7days, patient will have daily dressing change, patient denies any pain, fever or chills, patient diabetes is reasonbly well controlled with A1c of 7.4, patient will have PT/OT will continue to monitor. (2) Insulin dependent type 2 diabetes mellitus: Code(s): E11.9 - Type 2 diabetes mellitus without complications; Z79.4 - [facility] (current) use of insulin Status: Chronic Assessment and Plan: Will continue home regimen and monitor (3) Hypertension: Code(s): I10 - Essential (primary) hypertension Status: Chronic Assessment and Plan: Will continue home regimen and (4) Tobacco abuse: Code(s): Z72.0 - Tobacco use Status: Chronic Additional Plan Imaging once again shows osteomyelitis and/or septic arthritis and he has been started on vancomycin and imipenem per antibiotic stewardship recommendations. Hemoglobin A1c is up a bit in the last month or so and we discussed the importance of good glycemic control. Continue basal insulin. Initiate sliding scale insulin, Accu-Cheks, and hypoglycemic protocol. Blood pressures were reviewed and they are stable. He needs to quit smoking and we discussed this as well. He has been trying to cut back quite a bit. Subjective Date/time seen: 12/19/20 15:04 Patient with history of diabetes and diabetic foot ulcer along right hallux/foot, seen by orthopedic team and had bedside debridement of right plantar and dorsal hallux DFU on 12/18, and today patient was seen Dr. concepcion recommending to continue Zosyn until 6/3 and then patient can switch over oral Augmentin for 7days, patient will have daily dressing change, patient denies any pain, fever or chills, patient diabetes is reasonbly well controlled with A1c of 7.4, patient will have PT/OT will continue to monitor. Review of Systems Review of Systems: All systems reviewed & are unremarkable except as noted in HPI and below Exam Narrative: Exam Narrative: Patient is comfortable, NAD HEENT: eyes are clear and none icteric LUNGS:CTA HEART: RR S1S2 ABD: BS+, Soft and nontender Lower extremities: no edema MS: Right foot in wound dressing SKIN: nonjaundiced Neuro: grossly intact. Objective Data Vital Signs Vital Signs: Vital Signs - 24 hr 12/18/20 16:13 12/18/20 17:20 12/18/20 20:00 Temperature 98.1 F Pulse Rate 79 77 62 Respiratory Rate 18 18 18 Blood Pressure 98/61 L 122/71 Pulse Oximetry 95 98 96 12/18/20 20:20 12/19/20 04:51 Temperature 98.4 F 97.5 F L Pulse Rate 62 83 Respiratory Rate 18 18 Blood Pressure 108/55 L 111/77 Pulse Oximetry 96 93 Intake/Output Intake/Output: Intake & Output 12/16/20 12/17/20 12/18/20 12/19/20 23:59 23:59 23:59 23:59 Intake Total 750 2164 Balance 750 2164 Meds/Results Medications: Active Medications Generic Name Dose Route Start Last Admin Trade Name Freq PRN Reason Stop Dose Admin Acetaminophen 650 mg 12/18/20 15:55 Acetaminophen 325 Mg Tablet PO Q4H PRN Mild Pain (1-3) or Fever Dextrose 12.5 gm 12/18/20 22:56 Dextrose 50% 25 Gm/50 Ml Syringe IV PUSH PRN PRN Hypoglycemia Protocol Enoxaparin Sodium 40 mg 12/19/20 09:00 12/19/20 09:41 Enoxaparin 40 Mg/0.4 Ml Syringe SUB-Q 40 mg DAILY ILYA Administration Glucagon 1 mg 12/18/20 22:56 Glucagon For Inj 1 Mg Vial IM
[2020-12-19] MEDS: HYDROcodone/acetaminophen (*CRX) 5-325 MG TABLET 1 TAB PO ×2 (15:26→20:52)
[2020-12-19] MEDS: INSULIN ASPART (*BKC) 100 UNITS/ML SUB-Q (16:21)
--- NOTE | 2020-12-19 16:35 | PC.NURSE ---
Data transfer error occurred with glucometer. Blood glucose read 228 at 12/19/20 1603. Verified with Teresa Burns RN.
[2020-12-19 20:40] VITALS: BP 134/78; PULSE 74; RESP 16; TEMP 36.6; O2SAT 99
[2020-12-19 22:48] LABS: Glucose Point of Care 168 mg/dl (65-105)
[2020-12-19] MEDS: HYDROcodone/acetaminophen (*CRX) 10-325 MG TABLET 1 TAB PO (23:53)
[2020-12-20] MEDS: HYDROcodone/acetaminophen (*CRX) 10-325 MG TABLET 1 TAB PO ×4 (03:49→21:38)
[2020-12-20 05:07] VITALS: BP 109/77; PULSE 60; RESP 18; TEMP 36.4; O2SAT 99
[2020-12-20 07:38] LABS: Glucose Point of Care 157 mg/dl (65-105)
[2020-12-20] MEDS: ENOXAPARIN 40 MG/0.4 ML SYRINGE SUB-Q (08:12)
--- NOTE | 2020-12-20 10:38 | PM.IMPN ---
Progress Note: A&P Assessment and Plan (1) Diabetic infection of right foot: Code(s): E11.628 - Type 2 diabetes mellitus with other skin complications; L08.9 - Local infection of the skin and subcutaneous tissue, unspecified Status: Acute Assessment and Plan: -continue Zosyn through 12/25 per infectious disease recommendations -ortho following, bedside debridement 12/18/20. No plans for additional surgery at this time -MRI reviewed -cultures are growing Staph aureus and group B strep at this time. Await sensitivities -will need postop boot prior to discharge -infection, blood cultures have no growth to date (2) Insulin dependent type 2 diabetes mellitus: Code(s): E11.9 - Type 2 diabetes mellitus without complications; Z79.4 - [facility] (current) use of insulin Status: Chronic Assessment and Plan: Last glucose 157 -A1c 7.4 -continue sliding scale insulin and diabetic diet -Will hold home jardiance and NPH 40uBID for now but if he starts to run high we can restart this (3) Hypertension: Code(s): I10 - Essential (primary) hypertension Status: Chronic Assessment and Plan: Last bp 109/77 -will restart home metoprolol but hold on lisinopril since his bp is soft. (4) Tobacco abuse: Code(s): Z72.0 - Tobacco use Status: Chronic Assessment and Plan: Pt understands that he needs to quit smoking Time Spent With Patient Time with patient: 25 - 35 minutes Subjective Date/time seen: 12/20/20 10:38 Interval history: Pt is a 50-year-old male here for osteomyelitis. Patient was seen today and states he was having some pain throughout the night but is doing much better. He said the pain medication is helping. Pt denies nausea, vomiting, fevers, chills, constipation, diarrhea, chest pain, sob, or abdominal pain. Review of Systems Review of Systems: All systems reviewed & are unremarkable except as noted in HPI and below Exam Narrative: Exam Narrative: General: Well developed well nourished patient in NAD HEENT: normocephalic Neck: supple Neuro: Alert and oriented x4 CV:RRR Resp:CTA Abd: Soft, non distended. No pain to palpation. Positive bowel sounds Extremities: Right great toe with purulent drainage to the medial aspect with slight swelling to the foot. Puncture wound on the plantar surface of the foot as well. Pulses intact. Objective Data Vital Signs Vital Signs: Vital Signs - 24 hr 12/19/20 14:00 12/19/20 20:40 12/20/20 05:07 Temperature 98.0 F 97.8 F 97.6 F Pulse Rate 71 74 60 Respiratory Rate 18 16 18 Blood Pressure 106/51 L 134/78 109/77 Pulse Oximetry 98 99 99 Intake/Output Intake/Output: Intake & Output 12/17/20 12/18/20 12/19/20 12/20/20 23:59 23:59 23:59 23:59 Intake Total 750 3144 700 Balance 750 3144 700 Meds/Results Medications: Active Medications Generic Name Dose Route Start Last Admin Trade Name Freq PRN Reason Stop Dose Admin Acetaminophen 650 mg 12/18/20 15:55 Acetaminophen 325 Mg Tablet PO Q4H PRN Mild Pain (1-3) or Fever Hydrocodone Bitart/Acetaminophen 1 tab 12/19/20 15:21 12/19/20 20:52 Hydrocodone/Acetaminophen (*Crx) 5-325 Mg Tablet PO 1 tab Q6H PRN Administration Pain Rated 4-6 Hydrocodone Bitart/Acetaminophen 1 tab 12/19/20 23:37 12/20/20 08:14 Hydrocodone/Acetaminophen (*Crx) 10-325 Mg Tablet PO 1 tab Q4-6H PRN Administration Pain Rated 7-10 Dextrose 12.5 gm 12/18/20 22:56 Dextrose 50% 25 Gm/50 Ml Syringe IV PUSH PRN PRN Hypoglycemia Protocol Enoxaparin Sodium 40 mg 12/19/20 09:00 12/20/20 08:12 Enoxaparin 40 Mg/0.4 Ml Syringe SUB-Q 40 mg DAILY ILYA Administration Glucagon 1 mg 12/18/20 22:56 Glucagon For Inj 1 Mg Vial IM PRN PRN Hypoglycemia Protocol Glucose 15 gm 12/18/20 22:56 Glucose Oral Gel 15 Gm Of Glucse In 37.5 Gm Tube PO PRN PRN Hypoglyce
[2020-12-20 11:58] LABS: Glucose Point of Care 180 mg/dl (65-105)
[2020-12-20 13:08] VITALS: PULSE 64
[2020-12-20] MEDS: METOPROLOL TARTRATE 25 MG TABLET BY MOUTH ×2 (13:08→21:40)
[2020-12-20] MEDS: ATORVASTATIN 40 MG TABLET 80 MG BY MOUTH (13:09)
[2020-12-20] MEDS: ASPIRIN 81 MG CHEWABLE TABLET PO (13:10)
[2020-12-20 14:00] VITALS: BP 124/75; PULSE 70; RESP 16; TEMP 36.7; O2SAT 99
[2020-12-20] MEDS: SACCHAROMYCES BOULARDII 250 MG CAPSULE PO (17:47)
[2020-12-20 18:30] LABS: Glucose Point of Care 136 mg/dl (65-105)
[2020-12-20 21:37] LABS: Glucose Point of Care 172 mg/dl (65-105)
[2020-12-20 21:40] VITALS: PULSE 62
[2020-12-20 22:00] VITALS: BP 122/69; PULSE 59; RESP 16; TEMP 36.5; O2SAT 96
[2020-12-21] MEDS: HYDROcodone/acetaminophen (*CRX) 10-325 MG TABLET 1 TAB PO ×4 (03:43→21:37)
[2020-12-21] MEDS: MORPHINE SULFATE (*CRX) 2 MG/ML INJ IV PUSH (04:41)
[2020-12-21 05:04] LABS: Hematocrit 43.1 % (42.0-52.0); Hemoglobin 14.6 g/dL (14.0-18.0); Mean Corpuscular HGB Conc 33.9 g/dl (32-36); Mean Corpuscular Volume 85.5 fl (80-100); Mean Platelet Volume 8.2 fl (7.4-10.4); Platelet Count Result 315 k/mm3 (150-375); Red Blood Count 5.04 M/mm3 (4.6-6.20); Red Cell Distribution Width 12.1 % (11.5-14.5); White Blood Count 5.2 K/mm3 (4.5-10.0)
[2020-12-21 06:00] VITALS: BP 118/60; PULSE 60; RESP 16; TEMP 36.2; O2SAT 100
[2020-12-21 06:02] LABS: Anion Gap 4 mmol/L (8-16); Blood Urea Nitrogen 10 mg/dL (9-20); CRP 2.7 mg/dL (<1.0); Calcium 9.4 mg/dL (8.4-10.2); Carbon Dioxide 30 mmol/L (22-30); Chloride 102 mmol/L (98-107); Estimated CRCL calculation 132 ml/min; Estimated Glomerular Filt Rate > 60; Glucose 178 mg/dL (75-110); Potassium 4.2 mmol/L (3.4-5.0); Sodium 136 mmol/L (137-145)
[2020-12-21 07:01] LABS: Glucose Point of Care 228 mg/dl (65-105)
[2020-12-21] MEDS: ASPIRIN 81 MG CHEWABLE TABLET PO (07:45)
[2020-12-21 07:53] LABS: Glucose Point of Care 173 mg/dl (65-105)
[2020-12-21 08:02] VITALS: PULSE 62
[2020-12-21] MEDS: ENOXAPARIN 40 MG/0.4 ML SYRINGE SUB-Q (08:02)
[2020-12-21] MEDS: SACCHAROMYCES BOULARDII 250 MG CAPSULE PO ×2 (08:02→17:27)
[2020-12-21] MEDS: METOPROLOL TARTRATE 25 MG TABLET BY MOUTH ×2 (08:02→20:57)
[2020-12-21] MEDS: ATORVASTATIN 40 MG TABLET 80 MG BY MOUTH (08:03)
--- NOTE | 2020-12-21 09:05 | PM.IMPN ---
Progress Note: A&P Assessment and Plan (1) Diabetic infection of right foot: Code(s): E11.628 - Type 2 diabetes mellitus with other skin complications; L08.9 - Local infection of the skin and subcutaneous tissue, unspecified Status: Acute Assessment and Plan: -continue Zosyn through 12/25 per infectious disease recommendations -ortho following, bedside debridement 12/18/20. No plans for additional surgery at this time -MRI reviewed -cultures are growing Staph aureus and group B strep at this time. Await sensitivities -will need postop boot prior to discharge -no signs of systemic infection, blood cultures have no growth to date. CRP trending down. (2) Insulin dependent type 2 diabetes mellitus: Code(s): E11.9 - Type 2 diabetes mellitus without complications; Z79.4 - [employer] (current) use of insulin Status: Chronic Assessment and Plan: Last glucose 173 -A1c 7.4 -continue sliding scale insulin and diabetic diet -Will hold home jardiance and NPH 40uBID for now but if he starts to run high we can restart this (3) Hypertension: Code(s): I10 - Essential (primary) hypertension Status: Chronic Assessment and Plan: Last bp 118/60 -continue home metoprolol but hold on lisinopril since his bp is soft. (4) Tobacco abuse: Code(s): Z72.0 - Tobacco use Status: Chronic Assessment and Plan: Pt understands that he needs to quit smoking Subjective Date/time seen: 12/21/20 09:05 Interval history: Pt is a 50-year-old male here for osteomyelitis. Patient was seen today and states he had terrible neuropathy overnight which was way more intense than it usually is. He denies numbness or weakness. He said the pain medication is helping. He had a BM today. Pt denies nausea, vomiting, fevers, chills, night sweats, constipation, diarrhea, chest pain, sob, or abdominal pain. Exam Narrative: Exam Narrative: General: Well developed well nourished patient in NAD HEENT: normocephalic Neck: supple Neuro: Alert and oriented x4 CV:RRR Resp:CTA Abd: Soft, non distended. No pain to palpation. Positive bowel sounds Extremities: Right great toe with purulent drainage to the medial aspect with slight swelling to the foot. Puncture wound on the plantar surface of the foot as well. Pulses intact. Objective Data Vital Signs Vital Signs: Vital Signs - 24 hr 12/20/20 13:08 12/20/20 14:00 12/20/20 21:40 Temperature 98.1 F Pulse Rate 64 70 62 Respiratory Rate 16 Blood Pressure 124/75 Pulse Oximetry 99 12/20/20 22:00 12/21/20 06:00 12/21/20 08:02 Temperature 97.7 F 97.2 F L Pulse Rate 59 L 60 62 Respiratory Rate 16 16 Blood Pressure 122/69 118/60 Pulse Oximetry 96 100 Intake/Output Intake/Output: Intake & Output 12/18/20 12/19/20 12/20/20 12/21/20 23:59 23:59 23:59 23:59 Intake Total 750 3144 2980 500 Output Total 1200 Balance 750 3144 1780 500 Meds/Results Medications: Active Medications Generic Name Dose Route Start Last Admin Trade Name Freq PRN Reason Stop Dose Admin Acetaminophen 650 mg 12/18/20 15:55 Acetaminophen 325 Mg Tablet PO Q4H PRN Mild Pain (1-3) or Fever Hydrocodone Bitart/Acetaminophen 1 tab 12/19/20 15:21 12/19/20 20:52 Hydrocodone/Acetaminophen (*Crx) 5-325 Mg Tablet PO 1 tab Q6H PRN Administration Pain Rated 4-6 Hydrocodone Bitart/Acetaminophen 1 tab 12/19/20 23:37 12/21/20 08:04 Hydrocodone/Acetaminophen (*Crx) 10-325 Mg Tablet PO 1 tab Q4-6H PRN Administration Pain Rated 7-10 Aspirin 81 mg 12/20/20 08:00 12/21/20 07:45 Aspirin 81 Mg Chewable Tablet PO 81 mg DAILY@0800 ILYA Administration Atorvastatin Calcium 80 mg 12/20/20 09:00 12/21/20 08:03 Atorvastatin 40 Mg Tablet BY MOUTH 80 mg DAILY ILYA Administration Dextrose 12.5 gm 12/18/20 22:56 Dextrose 50% 25 Gm/50 Ml Syringe IV PUSH PRN PRN Hypoglycemia
[2020-12-21 14:00] VITALS: BP 126/76; PULSE 67; RESP 18; TEMP 35.5; O2SAT 98
[2020-12-21 16:55] LABS: Glucose Point of Care 160 mg/dl (65-105)
[2020-12-21 19:37] LABS: Glucose Point of Care 186 mg/dl (65-105)
[2020-12-21 20:00] VITALS: PULSE 74; RESP 18; O2SAT 98
[2020-12-21 20:00] LABS: Glucose Point of Care 231 mg/dl (65-105)
[2020-12-21 20:57] VITALS: PULSE 74
[2020-12-21] MEDS: GABAPENTIN 100 MG CAPSULE PO (20:57)
[2020-12-21 22:00] VITALS: BP 131/80; PULSE 75; RESP 16; TEMP 36.4; O2SAT 97
[2020-12-22] MEDS: HYDROcodone/acetaminophen (*CRX) 10-325 MG TABLET 1 TAB PO ×3 (05:44→21:31)
[2020-12-22 05:45] VITALS: BP 115/85; PULSE 64; RESP 18; TEMP 36.6; O2SAT 98
[2020-12-22 07:56] LABS: Glucose Point of Care 158 mg/dl (65-105)
[2020-12-22] MEDS: ENOXAPARIN 40 MG/0.4 ML SYRINGE SUB-Q (09:02)
[2020-12-22] MEDS: ASPIRIN 81 MG CHEWABLE TABLET PO (09:02)
[2020-12-22] MEDS: ATORVASTATIN 40 MG TABLET 80 MG BY MOUTH (09:02)
[2020-12-22 09:03] VITALS: PULSE 62
[2020-12-22] MEDS: SACCHAROMYCES BOULARDII 250 MG CAPSULE PO ×2 (09:03→16:25)
[2020-12-22] MEDS: METOPROLOL TARTRATE 25 MG TABLET BY MOUTH ×2 (09:03→21:31)
[2020-12-22 11:55] LABS: Glucose Point of Care 166 mg/dl (65-105)
--- NOTE | 2020-12-22 12:03 | PM.IMPN ---
Progress Note: A&P Assessment and Plan (1) Diabetic infection of right foot: Code(s): E11.628 - Type 2 diabetes mellitus with other skin complications; L08.9 - Local infection of the skin and subcutaneous tissue, unspecified Status: Acute Assessment and Plan: -continue Zosyn through 12/25 per infectious disease recommendations -ortho following, bedside debridement 12/18/20. No plans for additional surgery at this time -MRI reviewed -cultures are growing Staph aureus (sensitive to PCN) and group B strep at this time. -has post op boot at bedside -on lovenox for dvt prophylaxis -no signs of systemic infection, blood cultures have no growth to date. CRP trending down. (2) Insulin dependent type 2 diabetes mellitus: Code(s): E11.9 - Type 2 diabetes mellitus without complications; Z79.4 - [facility] ([facility] use of insulin Status: Chronic Assessment and Plan: Last glucose 166 -A1c 7.4 -continue sliding scale insulin and diabetic diet -Will hold home jardiance and NPH 40uBID for now but if he starts to run high we can restart this (3) Hypertension: Code(s): I10 - Essential (primary) hypertension Status: Chronic Assessment and Plan: Last bp 115/85 -continue home metoprolol but hold on lisinopril since his bp is soft. (4) Tobacco abuse: Code(s): Z72.0 - Tobacco use Status: Chronic Assessment and Plan: Pt understands that he needs to quit smoking Subjective Date/time seen: 12/22/20 12:03 Interval history: Pt is a 50-year-old male here for osteomyelitis. Patient was seen today and states the gabapentin really helped him overnight as he didn't have much neuropathy pain. He is overall doing okay and feels 'trapped' in his room and requests a walk. He had a BM today. Pt denies nausea, vomiting, fevers, chills, night sweats, constipation, diarrhea, chest pain, sob, or abdominal pain. Exam Narrative: Exam Narrative: General: Well developed well nourished patient in NAD HEENT: normocephalic Neck: supple Neuro: Alert and oriented x4 CV:RRR Resp:CTA Abd: Soft, non distended. No pain to palpation. Positive bowel sounds Extremities: Right great toe with no further purulent drainage to the medial aspect with slight swelling to the foot (improved). Puncture wound on the plantar surface of the foot as well. Pulses intact. Objective Data Vital Signs Vital Signs: Vital Signs - 24 hr 12/21/20 14:00 12/21/20 20:00 12/21/20 20:57 Temperature 96 F L Pulse Rate 67 74 74 Respiratory Rate 18 18 Blood Pressure 126/76 Pulse Oximetry 98 98 12/21/20 22:00 12/22/20 05:45 12/22/20 09:03 Temperature 97.6 F 97.8 F Pulse Rate 75 64 62 Respiratory Rate 16 18 Blood Pressure 131/80 115/85 Pulse Oximetry 97 98 Intake/Output Intake/Output: Intake & Output 12/19/20 12/20/20 12/21/20 12/22/20 23:59 23:59 23:59 23:59 Intake Total 3144 2980 1750 1320 Output Total 1200 Balance 3144 1780 1750 1320 Meds/Results Medications: Active Medications Generic Name Dose Route Start Last Admin Trade Name Freq PRN Reason Stop Dose Admin Acetaminophen 650 mg 12/18/20 15:55 Acetaminophen 325 Mg Tablet PO Q4H PRN Mild Pain (1-3) or Fever Hydrocodone Bitart/Acetaminophen 1 tab 12/19/20 15:21 12/19/20 20:52 Hydrocodone/Acetaminophen (*Crx) 5-325 Mg Tablet PO 1 tab Q6H PRN Administration Pain Rated 4-6 Hydrocodone Bitart/Acetaminophen 1 tab 12/19/20 23:37 12/22/20 10:13 Hydrocodone/Acetaminophen (*Crx) 10-325 Mg Tablet PO 1 tab Q4-6H PRN Administration Pain Rated 7-10 Aspirin 81 mg 12/20/20 08:00 12/22/20 09:02 Aspirin 81 Mg Chewable Tablet PO 81 mg DAILY@0800 ILYA Administration Atorvastatin Calcium 80 mg 12/20/20 09:00 12/22/20 09:02 Atorvastatin 40 Mg Tablet BY MOUTH 80 mg DAILY ILYA Administration Dextrose 12.5 gm 12/18/20 22:56 Dextrose 50% 25 Gm/50
[2020-12-22 14:00] VITALS: BP 111/66; PULSE 73; RESP 20; TEMP 36.3; O2SAT 100
[2020-12-22 16:13] LABS: Glucose Point of Care 175 mg/dl (65-105)
[2020-12-22 21:23] VITALS: BP 134/78; PULSE 64; RESP 18; TEMP 36.6; O2SAT 99
[2020-12-22 21:31] VITALS: PULSE 80
[2020-12-22] MEDS: GABAPENTIN 100 MG CAPSULE PO (21:31)
[2020-12-22 21:38] LABS: Glucose Point of Care 156 mg/dl (65-105)
[2020-12-23 05:02] LABS: Hematocrit 44.6 % (42.0-52.0); Hemoglobin 14.9 g/dL (14.0-18.0); Mean Corpuscular HGB Conc 33.4 g/dl (32-36); Mean Corpuscular Hemoglobin 28.9 pg (26-34); Mean Corpuscular Volume 86.4 fl (80-100); Mean Platelet Volume 8.3 fl (7.4-10.4); Platelet Count Result 301 k/mm3 (150-375); Red Blood Count 5.16 M/mm3 (4.6-6.20); Red Cell Distribution Width 11.9 % (11.5-14.5); White Blood Count 5.4 K/mm3 (4.5-10.0)
[2020-12-23 05:15] LABS: Anion Gap 8 mmol/L (8-16); Blood Urea Nitrogen 12 mg/dL (9-20); CRP 1.1 mg/dL (<1.0); Calcium 9.5 mg/dL (8.4-10.2); Carbon Dioxide 28 mmol/L (22-30); Chloride 102 mmol/L (98-107); Estimated CRCL calculation 132 ml/min; Estimated Glomerular Filt Rate > 60; Glucose 177 mg/dL (75-110); Potassium 4.2 mmol/L (3.4-5.0); Sodium 138 mmol/L (137-145)
[2020-12-23 05:36] VITALS: BP 123/53; PULSE 58; RESP 18; TEMP 37; O2SAT 98
[2020-12-23] MEDS: HYDROcodone/acetaminophen (*CRX) 10-325 MG TABLET 1 TAB PO ×3 (06:06→23:49)
--- NOTE | 2020-12-23 06:09 | CONS_ITS ---
DATE OF CONSULTATION: 12/19/2020 REASON FOR CONSULTATION: Diabetic foot infection. HISTORY OF PRESENT ILLNESS: A 50-year-old male who was here in July and August with osteomyelitis of the right 3rd toe. He had a ray amputation performed. He received 4 weeks of preop and postop antibiotics under my direction. He had some office debridements performed in September with Dr. Burton with good clinical success. He also had improvement with the IV antibiotics. He was subsequently well until several days before the present admission when he developed acute onset of swelling and redness over the distal right foot centered around the big toe. He presented to the emergency room yesterday and was admitted. He has been given imipenem and vancomycin. Consultation requested. No fever, chills, or sweats at home. No recent antibiotics. No immunosuppressants. He thinks he may have dropped something on the foot. Otherwise, no trauma. He has had no other recent operations. ALLERGIES: NONE KNOWN. PRESENT MEDICATIONS: List reviewed. No immunosuppressants. HABITS: Occasional tobacco, marijuana twice a week and 2 drinks of alcohol per week. FAMILY HISTORY: Not pertinent to his present illness. SOCIAL HISTORY: See record. No family at the bedside. PAST MEDICAL HISTORY: In addition to the above type 2 diabetes mellitus, hypertension, hyperlipidemia, COPD. REVIEW OF SYSTEMS: Endocrine, musculoskeletal, skin, constitutional, GI, respiratory otherwise negative. PHYSICAL EXAMINATION: GENERAL: Middle-aged male appears actual age. No acute distress. VITAL SIGNS: Afebrile since arrival, 111/77, 83, 18, 93% on room air. SKIN: Warm and dry. EENT: Conjunctivae are normal. There is no icterus. Teeth in good repair. NECK: No masses or adenopathy or meningismus. LUNGS: Clear to auscultation. CARDIAC: Regular rate and rhythm. No murmurs or gallops. He has no abdominal bruits. Unable to palpate dorsalis pedis pulses. Radial pulses 1+. ABDOMEN: Obese, nontender. No masses. No organomegaly. EXTREMITIES: 3+ pitting and nonpitting edema of the right foot. More marked over the distal medial aspect. He has a well-healed surgical incision in the area of the 3rd metatarsal head. He has skin breakdown between the first and second toes. Mildly foul odor and ulcerations over the ball of the foot as well as over the base of the first toe plantar aspect. He also has erythema. There is no purulence, no necrosis. DICTATION ENDED HERE ALTAGRACIA COWART M.D. LOZENGE MAKER LOZENGE MAKER D I MT: John
[2020-12-23 07:20] LABS: Glucose Point of Care 159 mg/dl (65-105)
[2020-12-23 08:01] VITALS: PULSE 58
[2020-12-23] MEDS: METOPROLOL TARTRATE 25 MG TABLET BY MOUTH ×2 (08:01→20:41)
[2020-12-23] MEDS: ATORVASTATIN 40 MG TABLET 80 MG BY MOUTH (08:01)
[2020-12-23] MEDS: SACCHAROMYCES BOULARDII 250 MG CAPSULE PO ×2 (08:01→16:22)
[2020-12-23] MEDS: ASPIRIN 81 MG CHEWABLE TABLET PO (08:02)
[2020-12-23] MEDS: ENOXAPARIN 40 MG/0.4 ML SYRINGE SUB-Q (08:02)
--- NOTE | 2020-12-23 09:39 | PM.PNORT ---
Progress Note: A&P Assessment and Plan (1) Diabetic infection of right foot: Code(s): E11.628 - Type 2 diabetes mellitus with other skin complications; L08.9 - Local infection of the skin and subcutaneous tissue, unspecified Status: Acute Assessment and Plan: 5 days s/p bedside debridement of right plantar and dorsal hallux DFU. Improvement in swelling/wound appearance today. MRI of the right foot on 12/19 reveals a deep ulceration with sinus tract extending to the flexor hallucis longus longus tendon sheath with likely septic tenosynovitis. No discrete abscess. Low suspicion for osteomyelitis at this time. Continue IV antibiotics through 12/25, transition to orals at that time. Appreciate ID recommendations. Continue daily dressing changes with Aquacel AG rope to the dorsal and plantar foot wounds, see wound care orders. Cleanse wound with soap/water or wound spray prior to changing dressing, nursing aware. Continue PWB of the RLE with post op shoe on heel. Elevate right foot on pillows when in bed. Will continue to follow. (2) Tobacco abuse: Code(s): Z72.0 - Tobacco use Status: Chronic Assessment and Plan: Patient is currently a smoker. We discussed importance of smoking cessation in regards to diabetic foot ulcer and complications including delayed healing, worsening infections and non-healing wounds. We discussed the [place] Quit Line and the [facility] smoking cessation program. Patient verbalized understanding. (3) Insulin dependent type 2 diabetes mellitus: Code(s): E11.9 - Type 2 diabetes mellitus without complications; Z79.4 - shelter (current) use of insulin Status: Chronic Assessment and Plan: Close diabetic control for optimal healing. Defer to hospitalist team. May benefit from nutrition consult. Subjective Subjective Date/Time Seen: 12/23/20 09:39 No new complaints. Feels his foot is improving. Mild complaints of pain. Review of Systems Constitutional: Constitutional: Reports no additional constitutional complaints, Reports chills, Denies excessive sweating, Denies fever(s) and Denies weight gain Eyes: Eyes: Reports no additional eye complaints and Denies change in vision ENT: Reports system reviewed and no additional complaints, except as documented and Reports Normal hearing present Cardiovascular: Cardiovascular: Denies chest pain, Denies diaphoresis, Denies leg ulcers and Denies dyspnea on exertion Respiratory: Respiratory: Reports no additional respiratory complaints, Denies cough and Denies dyspnea on exertion Gastrointestinal: Gastrointestinal: Reports no additional gastrointestinal complaints, Denies abdominal pain, Denies constipation, Denies nausea and Denies vomiting Genitourinary: Genitourinary: Reports no additional male genitourinary complaints, Denies hematuria and Denies urinary frequency Musculoskeletal: Musculoskeletal: Reports as per HPI Integumentary/Breasts: Skin/Breast: Reports as per HPI, Reports lesions, Reports erythema, Reports skin ulcer and Reports wounds Neurologic: Reports Normal hearing present Psychiatric: Psychiatric: Reports no additional psychiatric complaints Endocrine: Endocrine: Reports no additional endocrine complaints, Denies change in body appearance, Denies excessive sweating, Denies polyphagia, Denies polydipsia, Denies polyuria and Reports other (no changes in blood glucose levels. ) Exam Const: General: cooperative, comfortable and no acute distress Nutritional Appearance: obese Orientation/consciousness: patient oriented x3 Limitations: no limitations HENMT: Head: normocephalic Ears: hearing grossly normal bilaterally General nose exam: Normal external nose present Face and sinus: normal facial exam Mouth: Yes moist mucous membranes Teeth and gingiva: dentition normal Eyes: General: appearance normal, both eyes and all related structures Sclera: sclerae normal Pupils: Equal, round and reac
[2020-12-23 11:51] LABS: Glucose Point of Care 160 mg/dl (65-105)
--- NOTE | 2020-12-23 13:18 | PM.IMPN ---
Progress Note: A&P Assessment and Plan (1) Diabetic infection of right foot: Code(s): E11.628 - Type 2 diabetes mellitus with other skin complications; L08.9 - Local infection of the skin and subcutaneous tissue, unspecified Status: Acute Assessment and Plan: -continue Zosyn through 12/25 per infectious disease recommendations -ortho following, bedside debridement 12/18/20. No plans for additional surgery at this time -MRI reviewed -cultures are growing Staph aureus (sensitive to PCN) and group B strep at this time. -has post op boot at bedside -on lovenox for dvt prophylaxis -no signs of systemic infection, blood cultures have no growth to date. CRP trending down. (2) Insulin dependent type 2 diabetes mellitus: Code(s): E11.9 - Type 2 diabetes mellitus without complications; Z79.4 - long term care phlebotomist (current) use of insulin Status: Chronic Assessment and Plan: Last glucose 160 -A1c 7.4 -continue sliding scale insulin and diabetic diet -Will hold home jardiance and NPH 40uBID for now but if he starts to run high we can restart this (3) Hypertension: Code(s): I10 - Essential (primary) hypertension Status: Chronic Assessment and Plan: Last bp 115/85 -continue home metoprolol but hold on lisinopril since his bp is soft. -Will trend blood pressure and possibly restart lisinopril (4) Tobacco abuse: Code(s): Z72.0 - Tobacco use Status: Chronic Assessment and Plan: Pt understands that he needs to quit smoking Education was given Time Spent With Patient Time with patient: 25 - 35 minutes Subjective Date/time seen: 12/23/20 13:18 Patient is a 50-year-old male with past medical history of diabetes, hypertension, tobacco use who presented to ED for evaluation of his right foot wound. Patient stated that he is feeling better today and is ready to go home. Patient stated that he is aware that he has to stay for the IV antibiotics. Patient has no complaints and stated that he likes the gabapentin that has been started. He also stated that he checks his glucose and gives himself insulin even if his glucose is 200. I also discussed smoking with the patient. He stated that he knows he needs to quit, and that he really does not smoke that much. He stated that a pack of cigarettes goes stale before he smokes them all. Patient denies chest pain, shortness of breath, nausea, vomiting, abdominal pain, urination issues, lightheadedness, dizziness, numbness or tingling. Review of Systems Review of Systems: All systems reviewed & are unremarkable except as noted in HPI and below Exam Const: General: cooperative, healthy appearing, comfortable, no acute distress, well developed, alert, awake, Physically active and poor hygiene Nutritional Appearance: average body habitus, well nourished, obese and overweight Orientation/consciousness: patient oriented x3 Limitations: no limitations HENMT: Head: normal to inspection Ears: hearing grossly normal bilaterally General nose exam: Normal external nose present Mouth: Yes Normal oral and palatal mucosa present, Yes lip normal, Yes tongue normal and Yes moist mucous membranes Teeth and gingiva: abnormal tooth and associated gingiva and poor dentition Eyes: General: appearance normal, both eyes and all related structures Alignment and Position: alignment normal Periorbital: periorbital findings normal Eyelids: eyelids normal Pupils: Equal, round and reactive pupils present EOM: EOMs intact bilaterally Neck: Neck: normal visual inspection, full ROM, trachea midline and supple Thyroid: thyroid normal Chest: Chest palpation & inspection: normal inspection of the chest Resp: Effort & Inspection: normal respiratory effort and able to speak in complete sentences Auscultation: clear to auscultation bilaterally Cardio: Jugular venous distension: no JVD Rate: regular rate Rhythm: regular rhythm He
[2020-12-23 14:00] VITALS: BP 117/61; PULSE 65; RESP 18; TEMP 36.4; O2SAT 97
[2020-12-23 18:01] LABS: Glucose Point of Care 170 mg/dl (65-105)
[2020-12-23 20:00] VITALS: PULSE 72; RESP 18; O2SAT 97
[2020-12-23 20:41] VITALS: PULSE 72
[2020-12-23] MEDS: GABAPENTIN 100 MG CAPSULE PO (20:41)
[2020-12-23 21:06] LABS: Glucose Point of Care 207 mg/dl (65-105)
[2020-12-23 22:00] VITALS: BP 121/54; PULSE 70; RESP 16; TEMP 36.4; O2SAT 99
[2020-12-24 05:42] LABS: Hematocrit 42.8 % (42.0-52.0); Hemoglobin 14.5 g/dL (14.0-18.0); Mean Corpuscular HGB Conc 33.9 g/dl (32-36); Mean Corpuscular Hemoglobin 29.1 pg (26-34); Mean Corpuscular Volume 85.8 fl (80-100); Mean Platelet Volume 8.3 fl (7.4-10.4); Platelet Count Result 298 k/mm3 (150-375); Red Blood Count 4.99 M/mm3 (4.6-6.20); White Blood Count 5.7 K/mm3 (4.5-10.0)
[2020-12-24 05:55] LABS: Alanine Aminotransferase 73 U/L (4-50); Albumin Level 3.5 g/dL (3.5-5.1); Alkaline Phosphatase 102 U/L (38-126); Anion Gap 7 mmol/L (8-16); Aspartate Amino Transferase 70 U/L (17-59); Bilirubin,Total 0.3 mg/dL (0.2-1.3); Blood Urea Nitrogen 12 mg/dL (9-20); Calcium 9.2 mg/dL (8.4-10.2); Carbon Dioxide 30 mmol/L (22-30); Chloride 101 mmol/L (98-107); Estimated CRCL calculation 132 ml/min; Estimated Glomerular Filt Rate > 60; Glucose 180 mg/dL (75-110); Sodium 138 mmol/L (137-145)
[2020-12-24 06:00] VITALS: BP 128/73; PULSE 62; RESP 16; TEMP 36.4; O2SAT 97
[2020-12-24] MEDS: HYDROcodone/acetaminophen (*CRX) 10-325 MG TABLET 1 TAB PO ×2 (06:53→16:45)
[2020-12-24 07:39] LABS: Glucose Point of Care 159 mg/dl (65-105)
--- NOTE | 2020-12-24 08:00 | PM.PNORT ---
Progress Note: A&P Assessment and Plan (1) Diabetic infection of right foot: Code(s): E11.628 - Type 2 diabetes mellitus with other skin complications; L08.9 - Local infection of the skin and subcutaneous tissue, unspecified Status: Acute Assessment and Plan: Dressing changed this morning. No purulent drainage. Ulcer depth noted. Repacked with silver rope. Cultures show mixed joselyn including MSSA, prevotella, group B strep. Plan for IV antibiotics through December 25 And discharged home with orals. continue with dressing changes 1 to 2 times per day. May wash foot and shower. Plan for home health to assist with dressing changes at discharge. Follow up in [facility] wound clinic next week. (2) Tobacco abuse: Code(s): Z72.0 - Tobacco use Status: Chronic Assessment and Plan: Discussed need for absolute nicotine cessation. Patient verbalizes understanding. (3) Diabetes: Qualifiers: Diabetes mellitus complication detail: with foot ulcer Diabetes mellitus complication status: with skin complications Diabetes mellitus shelter insulin use: with shelter use Diabetes mellitus type: type 2 Qualified Code(s): E11.621 - Type 2 diabetes mellitus with foot ulcer; L97.509 - Non-pressure chronic ulcer of other part of unspecified foot with unspecified severity; Z79.4 - [facility] (current) use of insulin Code(s): E11.9 - Type 2 diabetes mellitus without complications Status: Acute Assessment and Plan: Discussed worsening of blood sugar control and increased hemoglobin A1c with patient. Recommend follow-up with primary care physician upon discharge. Subjective Subjective Date/Time Seen: 12/24/20 07:45 Post Op day: 5 (Right foot debridement) Principal diagnosis: right diabetic foot infection Interval history: patient awake and alert. States pain starting to improve. No other complaints. Exam Const: General: cooperative, comfortable and no acute distress Nutritional Appearance: obese Orientation/consciousness: patient oriented x3 Limitations: no limitations HENMT: Head: normocephalic Ears: hearing grossly normal bilaterally General nose exam: Normal external nose present Face and sinus: normal facial exam Mouth: Yes moist mucous membranes Teeth and gingiva: dentition normal Eyes: General: appearance normal, both eyes and all related structures Sclera: sclerae normal Pupils: Equal, round and reactive pupils present Neck: Neck: supple and no JVD Chest: Chest palpation & inspection: normal inspection of the chest Resp: Effort & Inspection: normal respiratory effort Cardio: Jugular venous distension: no JVD Rate: regular rate Rhythm: regular rhythm GI: Inspection: non-distended GI Palp: Yes Soft to palpation and No Tenderness to palpation present (GI) Skin: Wounds: wounds noted ( Right plantar foot 1st mtp.) Neuro: General: gait normal Cognition (Neuro): normal cognition Speech: normal speech Other: decreased sensation b/l feet due to chronic neuropathy Extrem: Right lower extremity: normal to inspection, lower leg Details: pitting edema Details: 1+; no erythema and no tenderness, ankle Details: edema and normal ROM; no tenderness and foot Details: normal capillary refill, abnormal to inspection (3rd Ray Amp ) Details: joint swelling (Hallux), erythematous (Hallux ) and a deformity, vascular exam Details: dorsalis pedis pulse present and normal capillary refill and motor-sensory exam Details: two point discrimination abnormal Location: in all toes and light-touch abnormal Location: in all toes; no ecchymosis Left lower extremity: normal to inspection and foot (No open ulcers ) Details: normal capillary refill, abnormal to inspection ( Previous amputation 2nd toe and part of 5th toe. Surgical incisions well healed.) and toes with normal ROM; no tenderness Other: Previous right 3rd ray amputation site remains well healed. Ulcer on the dorsal late
[2020-12-24 08:11] VITALS: PULSE 62
[2020-12-24] MEDS: METOPROLOL TARTRATE 25 MG TABLET BY MOUTH ×2 (08:11→20:38)
[2020-12-24] MEDS: ATORVASTATIN 40 MG TABLET 80 MG BY MOUTH (08:11)
[2020-12-24] MEDS: SACCHAROMYCES BOULARDII 250 MG CAPSULE PO ×2 (08:11→16:43)
[2020-12-24] MEDS: ASPIRIN 81 MG CHEWABLE TABLET PO (08:12)
[2020-12-24] MEDS: ENOXAPARIN 40 MG/0.4 ML SYRINGE SUB-Q (08:12)
--- NOTE | 2020-12-24 09:15 | PM.IMPN ---
Progress Note: A&P Assessment and Plan (1) Diabetic infection of right foot: Code(s): E11.628 - Type 2 diabetes mellitus with other skin complications; L08.9 - Local infection of the skin and subcutaneous tissue, unspecified Status: Acute Assessment and Plan: -continue Zosyn through AM 6/3 per infectious disease recommendations -ortho following, bedside debridement 12/18/20. No plans for additional surgery at this time. Plan for HH and wound follow up -MRI reviewed -cultures are growing miltiple organisms-Staph aureus (sensitive to PCN), prevotella, and group B strep at this time. -has post op boot at bedside -on lovenox for dvt prophylaxis -no signs of systemic infection, blood cultures have no growth to date. CRP now normal (2) Insulin dependent type 2 diabetes mellitus: Code(s): E11.9 - Type 2 diabetes mellitus without complications; Z79.4 - [facility] (current) use of insulin Status: Chronic Assessment and Plan: Last glucose 159 -A1c 7.4 -continue sliding scale insulin and diabetic diet -Will hold home jardiance and NPH 40uBID for now but if he starts to run high we can restart this (3) Hypertension: Code(s): I10 - Essential (primary) hypertension Status: Chronic Assessment and Plan: Last bp 128/73 -continue home metoprolol but hold on lisinopril since his bp is soft. -Will trend blood pressure and possibly restart lisinopril if needed (4) Tobacco abuse: Code(s): Z72.0 - Tobacco use Status: Chronic Assessment and Plan: -Pt understands that he needs to quit smoking Additional Plan LFTs slightly elevated. Could be due to abx. No pain, nausea, vomiting, or jaundice noted. suggest rechecking in 2 weeks outpt Subjective Date/time seen: 12/24/20 09:15 Interval history: Pt is a 50-year-old male here for osteomyelitis. Patient was seen today and states the gabapentin continues to help with his pain. No diarrhea or foot pain right now. He has been walking around the room as needed. Pt denies nausea, vomiting, fevers, chills, night sweats, constipation, diarrhea, chest pain, sob, or abdominal pain. Exam Narrative: Exam Narrative: General: Well developed well nourished patient in NAD HEENT: normocephalic Neck: supple Neuro: Alert and oriented x4 CV:RRR Resp:CTA Abd: Soft, non distended. No pain to palpation. Positive bowel sounds Extremities: Right great toe with no further purulent drainage to the medial aspect with slight swelling to the foot (improved). Puncture wound on the plantar surface of the foot as well. Pulses intact. Objective Data Vital Signs Vital Signs: Vital Signs - 24 hr 12/23/20 14:00 12/23/20 20:00 12/23/20 20:41 Temperature 97.5 F L Pulse Rate 65 72 72 Respiratory Rate 18 18 Blood Pressure 117/61 Pulse Oximetry 97 97 12/23/20 22:00 12/24/20 06:00 12/24/20 08:11 Temperature 97.6 F 97.6 F Pulse Rate 70 62 62 Respiratory Rate 16 16 Blood Pressure 121/54 L 128/73 Pulse Oximetry 99 97 Intake/Output Intake/Output: Intake & Output 12/21/20 12/22/20 12/23/20 12/24/20 23:59 23:59 23:59 23:59 Intake Total 1750 2960 2380 1410 Output Total 1000 Balance 1750 2960 1380 1410 Meds/Results Medications: Active Medications Generic Name Dose Route Start Last Admin Trade Name Freq PRN Reason Stop Dose Admin Acetaminophen 650 mg 12/18/20 15:55 Acetaminophen 325 Mg Tablet PO Q4H PRN Mild Pain (1-3) or Fever Hydrocodone Bitart/Acetaminophen 1 tab 12/19/20 15:21 12/19/20 20:52 Hydrocodone/Acetaminophen (*Crx) 5-325 Mg Tablet PO 1 tab Q6H PRN Administration Pain Rated 4-6 Hydrocodone Bitart/Acetaminophen 1 tab 12/19/20 23:37 12/24/20 06:53 Hydrocodone/Acetaminophen (*Crx) 10-325 Mg Tablet PO 1 tab Q4-6H PRN Administration Pain Rated 7-10 Aspirin 81 mg 12/20/20 08:00 12/24/20 08:12 Aspirin 81 Mg Chewable Tablet PO
[2020-12-24 14:00] VITALS: BP 130/74; PULSE 62; RESP 18; TEMP 36.4; O2SAT 98
[2020-12-24 15:31] LABS: Glucose Point of Care 174 mg/dl (65-105)
[2020-12-24 17:38] LABS: Glucose Point of Care 173 mg/dl (65-105)
[2020-12-24] MEDS: GABAPENTIN 100 MG CAPSULE PO (20:37)
[2020-12-24 20:38] VITALS: PULSE 70
[2020-12-24 20:57] VITALS: BP 131/77; PULSE 76; RESP 16; TEMP 36.7; O2SAT 97
[2020-12-24 21:01] LABS: Glucose Point of Care 225 mg/dl (65-105)
[2020-12-25] MEDS: HYDROcodone/acetaminophen (*CRX) 10-325 MG TABLET 1 TAB PO (03:11)
[2020-12-25 05:43] LABS: Alanine Aminotransferase 82 U/L (4-50); Albumin Level 3.7 g/dL (3.5-5.1); Alkaline Phosphatase 106 U/L (38-126); Aspartate Amino Transferase 71 U/L (17-59); Bilirubin,Total 0.3 mg/dL (0.2-1.3)
[2020-12-25 05:45] VITALS: BP 111/82; PULSE 75; RESP 16; TEMP 36.6; O2SAT 98
[2020-12-25] MEDS: ASPIRIN 81 MG CHEWABLE TABLET PO (08:35)
[2020-12-25 08:36] VITALS: PULSE 68
[2020-12-25] MEDS: ENOXAPARIN 40 MG/0.4 ML SYRINGE SUB-Q (08:36)
[2020-12-25] MEDS: SACCHAROMYCES BOULARDII 250 MG CAPSULE PO (08:36)
[2020-12-25] MEDS: ATORVASTATIN 40 MG TABLET 80 MG BY MOUTH (08:36)
[2020-12-25] MEDS: METOPROLOL TARTRATE 25 MG TABLET BY MOUTH (08:36)
--- NOTE | 2020-12-25 09:22 | PM.PNORT ---
Progress Note: A&P Assessment and Plan (1) Diabetic infection of right foot: Code(s): E11.628 - Type 2 diabetes mellitus with other skin complications; L08.9 - Local infection of the skin and subcutaneous tissue, unspecified Status: Acute Assessment and Plan: [place] changed. Continued improvement in redness/swelling. Continue daily dressing changes, pack with silver rope/cover dry. Continue IV antibiotics through today, then transition to orals. D/C home today. Home with home health. Follow up scheduled in the [facility] wound clinic next Tuesday. Patient aware. (2) Tobacco abuse: Code(s): Z72.0 - Tobacco use Status: Chronic Assessment and Plan: Discussed need for absolute nicotine cessation. Patient verbalizes understanding. 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 Recommend follow-up with primary care physician upon discharge. Subjective Subjective Date/Time Seen: 12/25/20 09:22 POD #6: Right Foot Debridement No new complaints. Anxious to go home. Review of Systems Constitutional: Constitutional: Reports no additional constitutional complaints, Reports chills, Denies excessive sweating, Denies fever(s) and Denies weight gain Eyes: Eyes: Reports no additional eye complaints and Denies change in vision ENT: Reports system reviewed and no additional complaints, except as documented and Reports Normal hearing present Cardiovascular: Cardiovascular: Denies chest pain, Denies diaphoresis, Denies leg ulcers and Denies dyspnea on exertion Respiratory: Respiratory: Reports no additional respiratory complaints, Denies cough and Denies dyspnea on exertion Gastrointestinal: Gastrointestinal: Reports no additional gastrointestinal complaints, Denies abdominal pain, Denies constipation, Denies nausea and Denies vomiting Genitourinary: Genitourinary: Reports no additional male genitourinary complaints, Denies hematuria and Denies urinary frequency Musculoskeletal: Musculoskeletal: Reports as per HPI Integumentary/Breasts: Skin/Breast: Reports as per HPI, Reports lesions, Reports erythema, Reports skin ulcer and Reports wounds Neurologic: Reports Normal hearing present Psychiatric: Psychiatric: Reports no additional psychiatric complaints Endocrine: Endocrine: Reports no additional endocrine complaints, Denies change in body appearance, Denies excessive sweating, Denies polyphagia, Denies polydipsia, Denies polyuria and Reports other (no changes in blood glucose levels. ) Exam Const: General: cooperative, comfortable and no acute distress Nutritional Appearance: obese Orientation/consciousness: patient oriented x3 Limitations: no limitations HENMT: Head: normocephalic Ears: hearing grossly normal bilaterally General nose exam: Normal external nose present Face and sinus: normal facial exam Mouth: Yes moist mucous membranes Teeth and gingiva: dentition normal Eyes: General: appearance normal, both eyes and all related structures Sclera: sclerae normal Pupils: Equal, round and reactive pupils present Neck: Neck: supple and no JVD Chest: Chest palpation & inspection: normal inspection of the chest Resp: Effort & Inspection: normal respiratory effort Cardio: Jugular venous distension: no JVD Rate: regular rate Rhythm: regular rhythm GI: Inspection: non-distended GI Palp:
--- NOTE | 2020-12-25 10:14 | PCNWS ---
Weekly nutritional screen. Patient is tolerating current diet with adequate intake. No weight loss reported. No nutritional needs at this time.
--- NOTE | 2020-12-25 10:44 | PM.DS ---
DS: Admitting Diagnosis Admitting Diagnosis Admitting Diagnosis: diabetic foot infection DS: Discharge Diagnosis Discharge Diagnosis (1) Diabetic infection of right foot: Code(s): E11.628 - Type 2 diabetes mellitus with other skin complications; L08.9 - Local infection of the skin and subcutaneous tissue, unspecified Status: Acute Assessment and Plan: Pt received zosyn from 12/19/20 to 12/25/20 while hospitalized and then transitioned to augmentin at discharge -infection site improved at discharge -ortho saw the pt in consult and did a bedside debridement 12/18/20. They plan to follow him up in the wound clinic -cultures are growing miltiple organisms-Staph aureus (sensitive to PCN), prevotella, and group B strep at this time. -he was given a post op boot -he was on lovenox for dvt prophylaxis during his stay -no signs of systemic infection, blood cultures had no growth. CRP normal at discharge (2) Insulin dependent type 2 diabetes mellitus: Code(s): E11.9 - Type 2 diabetes mellitus without complications; Z79.4 - computer terminal operator (current) use of insulin Status: Chronic Assessment and Plan: Last glucose 161 -A1c 7.4 -continue home insulin -educated on hypoglycemic protocol. (3) Hypertension: Code(s): I10 - Essential (primary) hypertension Status: Chronic Assessment and Plan: Last bp 111/82 -continue home medications (4) Tobacco abuse: Code(s): Z72.0 - Tobacco use Status: Chronic Assessment and Plan: -Pt understands that he needs to quit smoking DS: Summary Hospital Course Hospital Course: Patient is a 50-year-old male with a history of osteomyelitis and diabetes who presented emergency room for right foot edema, redness and discharge that had been going on for 2 days. He had no systemic symptoms of infection. Vitals in the ER were temperature 35.9? C, pulse 74, respiratory rate 18, blood pressure 109/58 pulse ox 97 on room air. CBC within normal limits, BMP relatively normal with exception of random glucose 238. CRP initially 7.9. Lactic acid normal. Foot x-ray revealed:. 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 No definitive progressive osteolysis to more specifically suggest recurrent or ongoing osteomyelitis. Interval amputations of the right third toe with corticated calcific formation without evident osteomyelitis at the third metatarsal osteotomy margin. Patient was admitted to the hospitalist service and started on antibiotics. Orthopedic surgery and Infectious Disease were consulted. An MRI was completed which will be Detailed below. Is recommended that he stay on Zosyn and be transition to Augmentin outpatient. Gabapentin was started for his pain which really improved it. The patient had a bedside debridement 12/18/2020 and required no further interventions. Throughout his stay he had no complications. The day of discharge he was feeling much better and ready to go. He was educated about the worrisome signs and symptoms to come back to emergency room for and was discharged in stable condition. MRI:1. Deep ulceration with sinus tract extending to the flexor hallucis longus longus tendon sheath where there likely septic tenosynovitis. No discrete abscess. 2. Moderate tendinopathy and longitudinal split tearing of the flexor hallucis longus tendon. 3. 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 Nonspecific marrow signal changes in the heads of the first and second metatarsals and base of the first and second proximal phalanges which could be reactive related to be secondary osteoarthritis although osteomyelitis annabel
--- NOTE | 2020-12-25 11:01 | PCNSR ---
On 12/25/20, the student,Johana Conn, provided care and completed [facility] documentation on this patient. I have reviewed the student's documentation and agree with the findings.
[2020-12-25 16:44] LABS: Glucose Point of Care 161 mg/dl (65-105)
== END 2020-12-25 11:45 | disposition home or self-care (01) | DRG 317 ==
LOC: ANHED 13:59 → ANH2MED 16:21
PROVIDERS: Emergency Medicine; Nurse Practitioner; Nurse Practitioner Family; Physician Assistant; Admitting Provider Family Medicine; Emergency Provider Emergency Medicine; Visit Provider Hospitalist
DX: E11.628 Type 2 diabetes mellitus with other skin complications (principal); E11.621 Type 2 diabetes mellitus with foot ulcer; M86.9 Osteomyelitis, unspecified; L08.9 Local infection of the skin and subcutaneous tissue, unspecified; L97.509 Non-pressure chronic ulcer of other part of unspecified foot with unspecified severity; B95.61 Methicillin susceptible Staphylococcus aureus infection as the cause of diseases classified elsewhere; B95.1 Streptococcus, group B, as the cause of diseases classified elsewhere; Z79.4 Long term (current) use of insulin; J44.9 Chronic obstructive pulmonary disease, unspecified; E78.00 Pure hypercholesterolemia, unspecified; I10 Essential (primary) hypertension; F17.210 Nicotine dependence, cigarettes, uncomplicated; E11.69 Type 2 diabetes mellitus with other specified complication; F12.90 Cannabis use, unspecified, uncomplicated; E78.5 Hyperlipidemia, unspecified; Z89.421 Acquired absence of other right toe(s); E11.40 Type 2 diabetes mellitus with diabetic neuropathy, unspecified; E66.9 Obesity, unspecified; Z68.41 Body mass index [BMI] 40.0-44.9, adult; M65.171 Other infective (teno)synovitis, right ankle and foot
CPT/HCPCS: 36415; 73630; 73720; 80048; 80053; 80076; 82948; 83036; 83605; 83735; 85025; 85027; 85652; 86140; 87040; 87070; 87075; 87076; 87147; 87185; 87186; 87205; 93971; 96374; 96375; 99285; A9270; A9577; J0743; J1650; J1815; J2270; J2405; J2543; J3370

== ENCOUNTER 2021-01-07 07:31 | Outpatient (CLI) | payer OTHER, SELFPAY ==
[2021-01-07 09:57] LABS: EDCOVIDSCREEN Negative (Negative)
== END 2021-01-07 07:32 | disposition home or self-care (01) ==
PROVIDERS: PCP Family Medicine; Visit Provider Orthopaedic Surgery
DX: Z01.818 Encounter for other preprocedural examination (principal)
CPT/HCPCS: 36415; 87426; C9803

== ENCOUNTER 2021-01-08 01:08 | Day surgery (SDC) | payer OTHER, SELFPAY ==
[2021-01-07 07:05] VITALS: BMI 44.2
--- NOTE | 2021-01-07 10:07 | WPDANESEPPF ---
Anes - Initial Pre Proc Eval Procedure: Operation Date: 01/08/21 13:30 Proposed Procedures p Incision and Debridement Diabetic Right Foot Ulcer - Royer Burton MD Date/Time: 01/07/21 10:07 Surgeon: Royer Burton MD Pre Op Diagnosis: Right diabetic foot ulcer Patient Data Age: 50 Gender: M Height: 1.78 m Weight: 140 kg Allergies Allergy/AdvReac Type Severity Reaction Status Date / Time No Known Allergies Allergy Verified 01/08/21 11:09 Home Medications Medication Instructions Recorded Confirmed Type lisinopril 10 mg PO DAILY 01/01/20 01/08/21 History Humulin 70/30 U-100 Insulin 40 unit SUBCUT BID 08/19/20 01/08/21 History Jardiance 10 mg DAILY 08/19/20 01/08/21 History aspirin 81 mg PO DAILY 08/19/20 01/08/21 History atorvastatin 80 mg DAILY 08/19/20 01/08/21 History metoprolol tartrate 25 mg PO DAILY 08/19/20 01/08/21 History gabapentin 100 mg PO HS #30 cap 12/24/20 01/08/21 Rx silver-hydrocolloid dressing 1 ea TOPICAL DAILY #10 ea 12/24/20 01/08/21 Rx [Aquacel-AG] Saccharomyces boulardii [Florastor] 250 mg PO BID 10 Days #20 cap 12/25/20 01/08/21 Rx hydrocodone-acetaminophen 1 tablet PO Q6H PRN #20 tablet 12/25/20 01/08/21 Rx Patient hx anesthesia problems: none Family hx anesthesia problems: none PMFSH Past Medical History Medical History Chronic obstructive pulmonary disease Diabetic foot ulcer Dyslipidemia Hypertension Insulin dependent type 2 diabetes mellitus Hemoglobin A1c was 7.4% on 12/18/2020. Osteomyelitis (07/2020) Septic arthritis (07/2020) Tobacco abuse Surgical History Surgical History History of foot surgery (~2018) Per Dr. Burton: 1. Excision of osteomyelitis from the right foot first and second metatarsal heads. 2. Incision of the hallux metatarsophalangeal joint with removal of septic arthritis. 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 Left 2nd Ray amputation. Family History Family History Other Adopted Social History Social History Social History: The patient lives in [place]. He is on disability. He has smoked up to a pack of cigarettes per day off and on for many years, now smokes about 5-10 cigarettes a day. Occasional marijuana use. Drinks alcohol socially and in moderation. He designates his brother as his surrogate decision maker and he wishes to be a full code. Smoking packs per day: 1 Smoking cigarettes per day: 20.0 Years smoked: 40 Smoking pack-years: 40.00 Smoking status: Current some day smoker Tobacco type: cigarettes and e-cigarettes/vaping Second hand tobacco smoke exposure: No Additional smoking assessment comments: past month has been smoking on and off only smoke 1 pk/month Alcohol intake: current Drinks per week: 4 Substance use: current Substance use type: marijuana Other substance usage details: currently uses marijuana x2 week Last use: 12/2020 Living arrangements: with family Additional living arrangements comments: Additional occupation/education comments: Gender identity (if verbalized by the patient): Male Sexual Orientation (if Verbalized by the Patient): Straight or Heterosexual Spiritual care concerns: No Anes - Eval Final PreProcedure Day of Procedure 01/07/21 10:07 Patient weight: morbidly obese Heart: regular rate and rhythm Lungs: clear to auscultation and normal air movement Airway: Mallampati scale class II Neurological: alert and oriented Last oral intake: >/= 8 hours ASA classification: III Emergent: no Anesthetic plan: proceed Anesthesia type and monitoring: general LMA and ETT Informed Consent: The patient's anesthetic plan and its attendant risks and benefits were discussed with the patient/family/POA. Question
[2021-01-08] VITALS (9 sets, daily range): BP systolic 89–126; BP diastolic 53–74; PULSE 76–89; RESP 12–19; TEMP 36.4; O2SAT 92–100
--- NOTE | 2021-01-08 07:01 | WPDHPUPDATE1 ---
History and Physical Update Update Date/Time: 01/08/21 07:01 History and Physical has been reviewed, including an updated exam of the patient. There are NO changes in the patient's condition. Covid test negative. Risks, benefits, and alternatives have been discussed and questions answered. Patient agrees to proceed with procedure.
[2021-01-08] MEDS: ACETAMINOPHEN 500 MG TABLET 1000 MG PO (11:21)
[2021-01-08] MEDS: LACTATED RINGERS 1,000 ML 30 ML IV CONT (11:35)
[2021-01-08 11:41] LABS: Glucose Point of Care 235 mg/dl (65-105)
[2021-01-08] MEDS: KETOROLAC 15 MG/ML VIAL (*BKC) IV PUSH (11:41)
[2021-01-08] MEDS: INSULIN HUMAN REGULAR (*BKC) 100 UNITS/ML SUB-Q (11:47)
[2021-01-08] MEDS: ceFAZolin 3 GM/D5W 100 ML 100 ML IVPB (11:50)
[2021-01-08] MEDS: BUPIVACAINE HCL 0.5% PF 30 ML VIAL INFILTRATE (12:39)
--- NOTE | 2021-01-08 13:24 | W.PM.PROC2 ---
Procedure Note - Detailed Date of Procedure 01/08/21 Pre-op Diagnosis Right diabetic foot ulcer Post-op Diagnosis same Procedure Performed Excisional debridement right diabetic foot ulcer 3 x 1 cm with application of graft. Surgeon Royer Burton MD Clinical Research Monitor plumber's assistant Anesthesia general Indications 50-year-old gentleman with insulin-dependent diabetes and peripheral neuropathy with a right diabetic foot ulcer plantar 1st metatarsophalangeal joint with communication to the 1st webspace. Patient has had a previous debridement. He has been somewhat noncompliant with his dressing regimen and had worsening of the wound. He presents now for operative debridement and application graft. Findings 3 x 1 cm ulceration 1st webspace extending to the proximal phalanx of the hallux. Plantar ulcer 1 cm x 5 mm with 3 cm depth. Description of Procedure What was done: Patient identified in the preoperative holding. Informed consent given. Operative extremity marked. Patient received intravenous antibiotics. Patient brought to the operating room where underwent general anesthetic by anesthesia team. Positioned supine on operating room table. Time-out performed confirming the patient, site of the surgery and the plan. Right foot prepped draped usual sterile surgical fashion using a Betadine prep solution. Fifteen blade knife used to sharply excise skin, subcutaneous tissue muscle from the 1st web space ulcer. Any devitalized or nonviable tissue was excised and passed off. Rongeur was used to debride the proximal phalanx bone. Wound thoroughly irrigated with antibiotic solution. Plantar incision was then enlarged distally with 15 blade knife. Hemostasis controlled electrocautery. Fifteen blade knife used to sharply excise skin, subcutaneous tissue and muscle from the wound that was nonviable. Rongeur used to debride bone at the base of the wound. Wound then thoroughly irrigated antibiotic solution. The amniotic tissue graft was then prepared on the back table was placed into the tunneling the communicated between the plantar ulcer and the 1st web space ulcer. Micro matrix particulate was then prepared and used to fill up the void of both the dorsal and plantar ulcers. Skin was then closed with 3 O nylon interrupted suture. Sterile dressing applied. Short-leg plaster splint applied. The patient was then woken from anesthesia, extubated and taken to the recovery room in stable condition. All sponge, needle, instrument counts were correct at the end of the case. Implants Micro matrix particulate 500 mg. Integra amniotic graft tissue 3 x 3 cm Estimated Blood Loss 5 Tourniquet Time 30 Drains No Packing No Pathology none sent Complications None Condition stable Disposition PACU
[2021-01-08 13:28] LABS: Glucose Point of Care 232 mg/dl (65-105)
== END 2021-01-08 15:00 | disposition home or self-care (01) ==
PROVIDERS: PCP Family Medicine; Visit Provider Orthopaedic Surgery
PROC: (CPT 15275; principal; 2021-01-08 13:30)
DX: E11.621 Type 2 diabetes mellitus with foot ulcer (principal); L97.419 Non-pressure chronic ulcer of right heel and midfoot with unspecified severity; J44.9 Chronic obstructive pulmonary disease, unspecified; E78.5 Hyperlipidemia, unspecified; I10 Essential (primary) hypertension; E11.69 Type 2 diabetes mellitus with other specified complication; M86.9 Osteomyelitis, unspecified; E11.42 Type 2 diabetes mellitus with diabetic polyneuropathy; Z91.19 Patient's noncompliance with other medical treatment and regimen; Z79.84 Long term (current) use of oral hypoglycemic drugs; Z79.82 Long term (current) use of aspirin; Z79.891 Long term (current) use of opiate analgesic; F17.210 Nicotine dependence, cigarettes, uncomplicated; F17.290 Nicotine dependence, other tobacco product, uncomplicated; E66.01 Morbid (severe) obesity due to excess calories; Z68.41 Body mass index [BMI] 40.0-44.9, adult
CPT/HCPCS: 15275; 11044; 82948; A9270; J0690; J1815; J1885; J2250; J2704; J3010; J3370; J7120; Q4137

== ENCOUNTER 2021-01-13 07:15 | Outpatient (RCR) | payer OTHER, SELFPAY ==
--- NOTE | 2020-12-30 10:32 | PCWOUND ---
WOCN NOTE Patient did not show up for appointment or call to cancel. Dr Lujan office to try and contact patient.
--- NOTE | 2021-01-06 12:17 | PM.IMHP ---
H&P: HPI History of Present Illness Date/Time: 01/06/21 12:17 Chief Complaint: Right diabetic foot ulcer Narrative: 50-year-old male follows up today in the [place] wound clinic status post hospitalization for right diabetic foot ulcer. Patient failed to follow up x2 in [place] wound clinic post hospitalization. He presents today with increased redness and swelling. 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 He attributes the increased swelling to working. He has finished his course of oral antibiotics. He continues to utilize his fracture boot. He is still smoking 1-2 cigarettes daily. He reports well-maintained blood glucose levels. Review of Systems Constitutional: Constitutional: Reports no additional constitutional complaints, Reports chills, Denies excessive sweating, Denies fever(s) and Denies weight gain Eyes: Eyes: Reports no additional eye complaints and Denies change in vision ENT: Reports system reviewed and no additional complaints, except as documented and Reports Normal hearing present Cardiovascular: Cardiovascular: Denies chest pain, Denies diaphoresis, Denies leg ulcers and Denies dyspnea on exertion Respiratory: Respiratory: Reports no additional respiratory complaints, Denies cough and Denies dyspnea on exertion Gastrointestinal: Gastrointestinal: Reports no additional gastrointestinal complaints, Denies abdominal pain, Denies constipation, Denies nausea and Denies vomiting Genitourinary: Genitourinary: Reports no additional male genitourinary complaints, Denies hematuria and Denies urinary frequency Musculoskeletal: Musculoskeletal: Reports as per HPI Integumentary/Breasts: Skin/Breast: Reports as per HPI, Reports lesions, Reports erythema, Reports skin ulcer and Reports wounds Neurologic: Reports Normal hearing present Psychiatric: Psychiatric: Reports no additional psychiatric complaints Endocrine: Endocrine: Reports no additional endocrine complaints, Denies change in body appearance, Denies excessive sweating, Denies polyphagia, Denies polydipsia, Denies polyuria and Reports other (no changes in blood glucose levels. ) PENDING SALE TO [facility] Past Medical History Medical History Chronic obstructive pulmonary disease Diabetic foot ulcer Dyslipidemia Hypertension Insulin dependent type 2 diabetes mellitus Hemoglobin A1c was 7.4% on 12/18/2020. Osteomyelitis (07/2020) Septic arthritis (07/2020) Tobacco abuse Surgical History Surgical History History of foot surgery (~2017) Per Dr. Burton: 1. Excision of osteomyelitis from the right foot first and second metatarsal heads. 2. Incision of the hallux metatarsophalangeal joint with removal of septic arthritis. 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 Left 2nd Ray amputation. Family History Family History Other Adopted Social History Social History Social History: The patient lives in [place]. He is on disability. He has smoked up to a pack of cigarettes per day off and on for many years, now smokes about 5-10 cigarettes a day. Occasional marijuana use. Drinks alcohol socially and in moderation. He designates his brother as his surrogate decision maker and he wishes to be a full code. Smoking packs per day: 1 Smoking cigarettes per day: 20.0 Years smoked: 35 Smoking pack-years: 35.00 Smoking status: Current some day smoker Second hand tobacco smoke exposure: Yes Additional smoking assessment comments: past month has been smoking on and off only smoke 1 pk/month Alcohol intake: current Drinks per week: 2 Substance use: current Substance use type: marijuana Other substance usage details: currently uses marijuana x2 week Last
--- NOTE | 2021-01-13 09:16 | PM.PNORT ---
Progress Note: A&P Assessment and Plan (1) Diabetic foot ulcer: Qualifiers: Diabetic foot ulcer location: unspecified part of foot Diabetes mellitus type: type 2 Laterality: right Non-pressure ulcer stage: unspecified non-pressure ulcer stage Qualified Code(s): E11.621 - Type 2 diabetes mellitus with foot ulcer; L97.519 - Non-pressure chronic ulcer of other part of right foot with unspecified severity Code(s): E11.621 - Type 2 diabetes mellitus with foot ulcer; L97.509 - Non-pressure chronic ulcer of other part of unspecified foot with unspecified severity Status: Acute Assessment and Plan: 5 days status post excisional debridement right diabetic foot ulcer and graft application. Patient denies fever, chills, night sweats, nausea, vomiting or diarrhea. No new concerns. New dressing applied today. Transfer to incision lines and ABD pad. short-leg splint applied to the right lower extremity. Patient to be nonweightbearing the right lower extremity. Follow up in 1 week for re-evaluation. Subjective Subjective Date/Time Seen: 01/13/21 09:16 Interval history: Five days status post excisional debridement right diabetic foot ulcer and graft application. Patient denies fever, chills, night sweats, nausea, vomiting or diarrhea. Pain well controlled. He has been nonweightbearing in the right lower extremity with splint in place. He is not currently on oral antibiotics. Review of Systems Constitutional: Constitutional: Reports no additional constitutional complaints, Reports chills, Denies excessive sweating, Denies fever(s) and Denies weight gain Eyes: Eyes: Reports no additional eye complaints and Denies change in vision ENT: Reports system reviewed and no additional complaints, except as documented and Reports Normal hearing present Cardiovascular: Cardiovascular: Denies chest pain, Denies diaphoresis, Denies leg ulcers and Denies dyspnea on exertion Respiratory: Respiratory: Reports no additional respiratory complaints, Denies cough and Denies dyspnea on exertion Gastrointestinal: Gastrointestinal: Reports no additional gastrointestinal complaints, Denies abdominal pain, Denies constipation, Denies nausea and Denies vomiting Genitourinary: Genitourinary: Reports no additional male genitourinary complaints, Denies hematuria and Denies urinary frequency Musculoskeletal: Musculoskeletal: Reports as per HPI Integumentary/Breasts: Skin/Breast: Reports as per HPI, Reports lesions, Reports erythema, Reports skin ulcer and Reports wounds Neurologic: Reports Normal hearing present Psychiatric: Psychiatric: Reports no additional psychiatric complaints Endocrine: Endocrine: Reports no additional endocrine complaints, Denies change in body appearance, Denies excessive sweating, Denies polyphagia, Denies polydipsia, Denies polyuria and Reports other (no changes in blood glucose levels. ) Exam Const: General: cooperative, comfortable and no acute distress Nutritional Appearance: obese Orientation/consciousness: patient oriented x3 Limitations: no limitations HENMT: Head: normocephalic Ears: hearing grossly normal bilaterally General nose exam: Normal external nose present Face and sinus: normal facial exam Mouth: Yes moist mucous membranes Teeth and gingiva: dentition normal Eyes: General: appearance normal, both eyes and all related structures Sclera: sclerae normal Pupils: Equal, round and reactive pupils present Neck: Neck: supple and no JVD Chest: Chest palpation & inspection: normal inspection of the chest Resp: Effort & Inspection: normal respiratory effort Cardio: Jugular venous distension: no JVD Rate: regular rate Rhythm: regular rhythm GI: Inspection: non-distended GI Palp: Yes Soft to palpation and No Tenderness to palpation present (GI) Skin: Wounds: wounds noted ( Right plantar foot 1st mtp and lateral aspect of the hallux) Neuro: General: gait normal Cognition (Neuro): normal
--- NOTE | 2021-01-20 12:06 | PCWOUND ---
WOCN NOTE patient did not show up for his scheduled appointment. No phone call was made to cancel or reschedule.
== END 2021-03-23 09:32 | disposition home or self-care (01) ==
LOC: ANHWOC 07:15
PROVIDERS: Visit Provider Nurse Practitioner Family
DX: E11.628 Type 2 diabetes mellitus with other skin complications (principal); E11.621 Type 2 diabetes mellitus with foot ulcer; L97.519 Non-pressure chronic ulcer of other part of right foot with unspecified severity; L08.9 Local infection of the skin and subcutaneous tissue, unspecified
CPT/HCPCS: 99213; G0463

== ENCOUNTER 2021-09-15 12:51 | Inpatient (IN) | payer OTHER, SELFPAY ==
--- NOTE | ~2021-09-15 | XR_ITS ---
EXAMINATION: XR foot RT min 3V DATE: 09/15/2021 16:00 INDICATION: Open wound of the right foot, diabetic foot ulcers TECHNIQUE: Dorsoplantar, lateral, and 2 oblique views of the right foot were obtained. COMPARISON: 12/18/2020 FINDINGS: There are changes of toe and distal metatarsal amputation of the third digit. There is oste openia with fracture of the first metatarsal. There is swelling of soft tissue gas near the first met atarsal and first toe. There are chronic changes at the first and second metatarsophalangeal joints. IMPRESSION: 1. Findings suggestive of osteomyelitis and pathologic fracture of the first metatarsal. Additional c hronic changes as described above. Reviewed, dictated and finalized at location F. ESTATE ADMINISTRATIVE ASSISTANT IMPRESSION: 1. Findings suggestive of osteomyelitis and pathologic fracture of the first me tatarsal. Additional chronic changes as described above.
--- NOTE | ~2021-09-15 | XR_ITS ---
XR chest PICC line 09/21/2021 13:19 Indication: PICC line placement Procedure: AP portable chest Comparison: 04/28/2018 Findings: PICC line tip in the SVC. Heart size normal. No focal air space disease, pulmonary edema, p leural effusion or suspected pneumothorax. Impression: 1: No acute cardiopulmonary disease. Reviewed, dictated and finalized at location A. E SPLICING TECHNICIAN Impression: 1: No acute cardiopulmonary disease.
[2021-09-15 13:30] VITALS: BP 117/95; PULSE 82; RESP 17; TEMP 36.9; O2SAT 100
[2021-09-15] MEDS: MORPHINE SULFATE (*CRX) 4 MG/ML INJ IV PUSH (15:56)
[2021-09-15 16:01] LABS: Basophils Absolute Auto 0.1 K/mm3 (0.0-0.1); Basophils Percent Auto 0.5 % (0.2-1.2); Eosinophils Absolute Auto 0.1 K/mm3 (0-0.3); Eosinophils Percent Auto 0.6 % (0-4.4); Hematocrit 38.5 % (42.0-52.0); Hemoglobin 12.7 g/dL (14.0-18.0); Immature Granulocyte Absolute 0.18 K/mm3 (0.00-0.031); Immature Granulocyte Percent A 1.1 % (0-0.5); Lymphocytes Absolute Auto 0.82 K/mm3 (0.9-3.2); Lymphocytes Percent Auto 5.1 % (18.3-44.2); Mean Corpuscular Hemoglobin 28.7 pg (26-34); Mean Corpuscular Volume 86.9 fl (80-100); Monocytes Absolute Auto 0.5 K/mm3 (0.1-0.6); Neutrophils Absolute Auto 14.6 K/mm3 (1.3-6.7); Neutrophils Percent Auto 89.7 % (45.5-73.1); Platelet Count Result 418 k/mm3 (150-375); Red Blood Count 4.43 M/mm3 (4.6-6.20); Red Cell Distribution Width 13.4 % (11.5-14.5); White Blood Count 16.2 K/mm3 (4.5-10.0)
--- NOTE | 2021-09-15 16:04 | ED.WOUNDLAC ---
HPI - Wound/Laceration General Chief Complaint: Wound/Laceration Stated Complaint: ulcer to foot Time Seen by Provider: 09/15/21 15:19 Source: patient Mode of arrival: wheelchair Limitations: no limitations History of Present Illness HPI narrative: 51-year-old male presents to the ER with worsening right foot wound. Patient states he has had this wound for years and has had multiple surgeries on this wound. Patient says recently has opened up more with increased drainage with foul smelling drainage. Patient has a history of diabetes and diabetic foot ulcers. Patient also admits to smoking a pack a day. Patient denies any fevers. Patient contacted Ortho doctor Elizabeth and he instructed him to come to the ER for further evaluation Onset (ago): year(s) Related Data Home Medications Medication Instructions Recorded Confirmed lisinopril 10 mg PO DAILY 01/01/20 01/08/21 Humulin 70/30 U-100 Insulin 40 unit SUBCUT BID 08/19/20 01/08/21 Jardiance 10 mg DAILY 08/19/20 01/08/21 aspirin 81 mg PO DAILY 08/19/20 01/08/21 atorvastatin 80 mg DAILY 08/19/20 01/08/21 metoprolol tartrate 25 mg PO BID 08/19/20 01/08/21 Allergies Allergy/AdvReac Type Severity Reaction Status Date / Time No Known Allergies Allergy Verified 09/15/21 15:13 Review of Systems Review of Systems: All systems reviewed & are unremarkable except as noted in HPI and below Constitutional: Constitutional: Reports no additional constitutional complaints Eyes: Eyes: Reports no additional eye complaints ENT: Reports system reviewed and no additional complaints, except as documented Cardiovascular: Cardiovascular: Reports no additional cardiovascular complaints Respiratory: Respiratory: Reports no additional respiratory complaints Gastrointestinal: Gastrointestinal: Reports no additional gastrointestinal complaints Genitourinary: Genitourinary: Reports no additional male genitourinary complaints Musculoskeletal: Musculoskeletal: Reports no additional musculoskeletal complaints Integumentary/Breasts: Skin/Breast: Reports skin ulcer (Right foot) Neurologic: Reports system reviewed and no additional complaints, except as documented Psychiatric: Psychiatric: Reports no additional psychiatric complaints Endocrine: Endocrine: Reports no additional endocrine complaints Hematologic/Lymphatic: Hematologic/Lymphatic: Reports no additional hematologic/lymphatic complaints Allergic/Immunologic: Allergic/Immunologic: Reports no additional allergic/immunologic complaints PMFSH Past Medical History Medical History Chronic obstructive pulmonary disease Diabetic foot ulcer Dyslipidemia Hypertension Insulin dependent type 2 diabetes mellitus Hemoglobin A1c was 7.4% on 12/18/2020. Osteomyelitis (07/2020) Septic arthritis (07/2020) Tobacco abuse Surgical History Surgical History History of foot surgery (~2017) Per Dr. Burton: 1. Excision of osteomyelitis from the right foot first and second metatarsal heads. 2. Incision of the hallux metatarsophalangeal joint with removal of septic arthritis. 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 Left 2nd Ray amputation. Family History Family History Other Adopted Social History Social History Social History: The patient lives in [place]. He is on disability. He has smoked up to a pack of cigarettes per day off and on for many years, now smokes about 5-10 cigarettes a day. Occasional marijuana use. Drinks alcohol socially and in moderation. He designates his brother as his surrogate decision maker and he wishes to be a full code. Smoking packs per day: 1 Smoking cigarettes per day: 20.0 Years smoked: 40 Smoking pack-years: 40.00 Smoking status: Current some
[2021-09-15 16:14] LABS: INR 1.1; Lactic Acid Reflex 1.4 mmol/L (0.7-2.1); Prothrombin Time 13.4 Seconds (11.1-14.7)
[2021-09-15 16:15] LABS: Partial Thromboplastin Time 34.3 SECONDS (22.3-36.8)
[2021-09-15 16:26] LABS: Erythrocyte Sedimentation Rate 46 mm/hr (0-20)
--- NOTE | 2021-09-15 16:45 | PM.IMHP ---
H&P: HPI History of Present Illness Date/Time: 09/15/21 16:45 Chief Complaint: Diabetic foot wound. Narrative: This is a 50-year-old male with insulin-dependent diabetes, hypertension, and hyperlipidemia who presented to the emergency department earlier today via private vehicle from home for evaluation of a right foot wound. He has a history of a diabetic foot wound with osteomyelitis at that site requiring previous debridement. According to the patient it took approximately 6 months to heal but he thought was doing just fine until the last 7 to 10 days when it ?opened up? and began draining foul-smelling urine. He reports that the wound ?is down to the bone? and so he packed with sterile gauze that he had at home. He would not allow me to remove this causes for exam at this time, however. He has pain in the right foot that is worse with weight-bearing though he has a difficult time describing the pain. The pain has been pretty severe however and he has not been sleeping well the past few nights. Additionally he has noticed surrounding erythema and edema up to the mid calf. Glucose has been running high for the past 1 week or so. He denies fever, chills, and sweats. No nausea or vomiting. Review of Systems Review of Systems: Twelve systems were reviewed and are negative except for as per HPI. [facility] Past Medical History Medical History Chronic obstructive pulmonary disease Diabetic foot ulcer Dyslipidemia Hypertension Insulin dependent type 2 diabetes mellitus Hemoglobin A1c was 7.4% on 12/18/2020. Osteomyelitis (07/2020) Septic arthritis (07/2020) Tobacco abuse Surgical History Surgical History History of foot surgery (~2018) Per Dr. Burton: 1. Excision of osteomyelitis from the right foot first and second metatarsal heads. 2. Incision of the hallux metatarsophalangeal joint with removal of septic arthritis. 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 Left 2nd Ray amputation. Family History Family History Other Adopted Unknown family medical history Social History Social History (Updated 09/15/21 @ 21:33 by Lacey Hogan PA-C) Social History: Surrogate decision maker: Lucho Miranda, father. Code status: Full code. Smoking packs per day: 1 Smoking cigarettes per day: 20.0 Years smoked: 39 Smoking pack-years: 39.00 Smoking status: Current every day smoker Tobacco type: cigarettes Second hand tobacco smoke exposure: No Additional smoking assessment comments: Past month has been smoking on and off only smoke 1 pk/month Alcohol intake: unknown Drinks per week: 4 Alcohol use details: Social Substance use: never Substance use type: does not use Other substance usage details: currently uses marijuana x2 week Last use: 12/2020 Additional living arrangements comments: Additional occupation/education comments: Meds Home Medications and Allergies Home Medications Medication Instructions Recorded Confirmed Type lisinopril 10 mg PO DAILY 01/01/20 09/15/21 History Humulin 70/30 U-100 Insulin 40 unit SUBCUT BID PRN 08/19/20 09/15/21 History Jardiance 10 mg DAILY 08/19/20 09/15/21 History aspirin 81 mg PO DAILY 08/19/20 09/15/21 History atorvastatin 80 mg DAILY 08/19/20 09/15/21 History metoprolol tartrate 25 mg PO BID 08/19/20 09/15/21 History Allergies Allergy/AdvReac Type Severity Reaction Status Date / Time No Known Allergies Allergy Verified 09/15/21 15:13 Vital Signs Vital Signs - 24 hr 09/15/21 13:30 Temperature 98.5 F Pulse Rate 82 Respiratory Rate 17 Blood Pressure 117/95 H Pulse Oximetry 100 Exam Narrative: General: HEENT: Normocephalic, atraumatic. PERRL, EOMI. Sclerae anicteric. Oral mucosa moist. Oropharynx clear. Neck: Supple.
[2021-09-15 18:01] VITALS: BMI 41.8
--- NOTE | 2021-09-15 18:09 | PC.NURSE ---
This patient, Rashard Miranda, was admitted to Medical Room 253-01. Patient/family oriented to hospital policies and general routines including ID bracelet, bed and alarms, visiting hours, pain management, procedures, bathroom and other care routines, personal items, smoking policy, room service/diet, and visiting hours. Information on how to activate the Rapid Response Team has been discussed. Patient/Family are encouraged to report perceived risks to care and to ask questions if they do not understand what they are told or what they should do.
[2021-09-15 18:10] VITALS: BP 113/46; PULSE 47; RESP 20; TEMP 37.2; O2SAT 99
[2021-09-15 18:14] VITALS: BP 123/72; PULSE 89; RESP 22; O2SAT 96
[2021-09-15 18:19] LABS: Glucose Point of Care 88 mg/dl (65-105)
[2021-09-15 18:57] LABS: Alanine Aminotransferase 20 U/L (4-50); Alkaline Phosphatase 138 U/L (38-126); Anion Gap 5 mmol/L (8-16); Aspartate Amino Transferase 33 U/L (17-59); Bilirubin,Total 0.6 mg/dL (0.2-1.3); Blood Urea Nitrogen 19 mg/dL (9-20); Calcium 9.1 mg/dL (8.4-10.2); Carbon Dioxide 30 mmol/L (22-30); Chloride 95 mmol/L (98-107); Estimated CRCL calculation 132 ml/min; Estimated Glomerular Filt Rate > 60; Glucose 85 mg/dL (65-110); Potassium 4.1 mmol/L (3.4-5.0); Sodium 130 mmol/L (137-145)
[2021-09-15 19:09] LABS: CRP 17.9 mg/dL (<1.0)
[2021-09-15 20:27] VITALS: BP 111/55; PULSE 84; RESP 17; TEMP 37.7; O2SAT 96
[2021-09-15] MEDS: HYDROmorphone HCL INJ (*CRX) 1 MG/ML SYR 0.5 MG IV PUSH (20:52)
[2021-09-15 21:49] LABS: Glucose Point of Care 176 mg/dl (65-105)
[2021-09-15 22:00] VITALS: BP 111/55; PULSE 84; RESP 17; TEMP 37.7; O2SAT 96
[2021-09-15] MEDS: ENOXAPARIN 40 MG/0.4 ML SYRINGE SUB-Q (22:24)
[2021-09-15] MEDS: SODIUM CHLORIDE 0.9% IV 1,000 ML 100 ML IV CONT (22:24)
[2021-09-15 22:38] LABS: Hemoglobin A1C 8.1 % (<5.7)
[2021-09-16] VITALS (7 sets, daily range): BP systolic 98–132; BP diastolic 50–90; PULSE 63–90; RESP 16–17; TEMP 35.9–37.3; O2SAT 95–98
[2021-09-16] MEDS: HYDROmorphone HCL INJ (*CRX) 1 MG/ML SYR 0.5 MG IV PUSH ×2 (04:57→21:12)
--- NOTE | 2021-09-16 05:11 | PC.NURSE ---
DISCUSSED WITH PT CHANGING DRESSING, STATES IT HAS TO GET PACKED WITH GAUZE STRIPS, INFORMED PT I DO N OT HAVE ORDERS TO PACK WOUND, PT STATES IF YOU TAKE THIS PACKING OUT IT HAS TO BE PACKED SO LETS WAIT TILL THE DR SEES IT
[2021-09-16 06:14] LABS: Hematocrit 35.9 % (42.0-52.0); Mean Corpuscular HGB Conc 33.4 g/dl (32-36); Mean Corpuscular Hemoglobin 28.6 pg (26-34); Mean Corpuscular Volume 85.5 fl (80-100); Mean Platelet Volume 8.2 fl (7.4-10.4); Platelet Count Result 330 k/mm3 (150-375); Red Cell Distribution Width 13.4 % (11.5-14.5); White Blood Count 7.9 K/mm3 (4.5-10.0)
[2021-09-16 06:42] LABS: Anion Gap 4 mmol/L (8-16); Blood Urea Nitrogen 13 mg/dL (9-20); Carbon Dioxide 29 mmol/L (22-30); Chloride 94 mmol/L (98-107); Estimated CRCL calculation 165 ml/min; Estimated Glomerular Filt Rate > 60; Glucose 174 mg/dL (65-110); Sodium 127 mmol/L (137-145)
[2021-09-16 07:42] LABS: Glucose Point of Care 162 mg/dl (65-105)
[2021-09-16] MEDS: ASPIRIN 81 MG CHEWABLE TABLET PO (09:53)
[2021-09-16] MEDS: SODIUM CHLORIDE 0.9% IV 1,000 ML 100 ML IV CONT (09:53)
[2021-09-16] MEDS: METOPROLOL TARTRATE 25 MG TABLET PO ×2 (09:54→17:18)
[2021-09-16] MEDS: EMPAGLIFLOZIN 10 MG TABLET PO (09:54)
[2021-09-16] MEDS: lisinopriL 10 MG TABLET PO (09:54)
[2021-09-16] MEDS: ATORVASTATIN 40 MG TABLET 80 MG PO (09:54)
[2021-09-16] MEDS: HYDROcodone/acetaminophen (*CRX) 5-325 MG TABLET 1 TAB PO ×2 (10:03→16:16)
--- NOTE | 2021-09-16 10:54 | PM.IMPN ---
Progress Note: A&P Assessment and Plan (1) Diabetic infection of right foot: Onset Date: ~08/2021 Code(s): E11.628 - Type 2 diabetes mellitus with other skin complications; L08.9 - Local infection of the skin and subcutaneous tissue, unspecified Status: Acute Assessment and Plan: - Continue IV Abx of Vancomycin and Imipenem. Vanc Trough as per pharmacy guidelines. - Awaiting consult of Dr. Burton. - Keep dressed with Sterile ABD and Kerlix daily pending further orders from Orthopedics. - Wound and Blood cultures are pending. - Pt. does not have good Diabetes control as evidenced by his A1C, his refusing insulins and not being compliant with therapies. (2) Cellulitis of foot, right: Onset Date: ~08/2021 Code(s): L03.115 - Cellulitis of right lower limb Status: Acute Assessment and Plan: - Continue IV abx of Vancomycin and Imipenem with Vanc trough according to pharmacy guidelines. - Wound and blood cultures are pending. (3) Acute osteomyelitis of metatarsal bone of right foot: Onset Date: ~08/2021 Code(s): M86.171 - Other acute osteomyelitis, right ankle and foot Status: Acute Assessment and Plan: - Pt. is receiving IV abx treatment with Imipenem and Vanc. - Orthopedics consult is pending for definitive treatment. - Blood and wound cultures are pending. (4) Insulin dependent type 2 diabetes mellitus: Onset Date: Unknown Code(s): E11.9 - Type 2 diabetes mellitus without complications; Z79.4 - intermediate school teacher (current) use of insulin Status: Chronic Assessment and Plan: - A1C = 8.1. This is upward trending since 08/20/20 when it was 6.8, and then on 12/18/20 when it was 7.4. This pt. does not have a good control at home of his chronic treatment. - Maintain a Diabetic diet. - Continue Accu checks - Continue Jardiance - SSI initiated, but pt. does not want to take it and refused today's dose. Pt. is counseled for the need of the insulin for mulitple reasons including the immediate reason of wound healing, as well as the need for continue treatment to prevent any further vascular damage related to DM and to decrease risk of CAD related events and CVA. Nurse was advised to document his refusal. - Will consider Dietitian consult once definitive plan for his care is made. (5) Hypertension: Onset Date: Unknown Code(s): I10 - Essential (primary) hypertension Status: Chronic Assessment and Plan: - Currently appears well controlled. - Continue Lisinopril 10 mg po daily, Metoprolol 25 mg po BID, - Monitor trend with VS. (6) Tobacco abuse: Onset Date: Unknown Code(s): Z72.0 - Tobacco use Status: Chronic Assessment and Plan: - Pt. was counselled for smoking cessation. - Nicotine patch ordered. Time Spent With Patient Time with patient: 15 - 25 minutes Subjective Date/time seen: 09/16/21 3030 This pt. is examined at the bedside today in interval assessment. He has been admitted for Osteomyelitis of the right foot. The pt. tells me today that this is run of the mill for him. He had been caring for the wound that Opened up on it's own while out of town and had been reportedly packing it himself. He has had continued purulent drng from it that is foul smelling. He has moderate amount of pain that he states is best relieved with [place] as he states it seems to last longer. He has already had multiple amputations on the same foot and Dr. Burton is consulted to evaluate for this one as well. He has no new complaints and no new concerns. Review of Systems Review of Systems: No new complaints or symptoms to report. We are awaiting the Orthopedic Consult at this time. All systems reviewed & are unremarkable except as noted in HPI and below Exam Const: General: comfortable and no acute distress HENMT: Mouth: Yes moist mucous membranes Eyes: Sclera: sclerae normal Neck: Neck: supple Resp: Other: Lung s
[2021-09-16 11:32] LABS: Glucose Point of Care 287 mg/dl (65-105)
[2021-09-16] MEDS: INSULIN ASPART (*BKC) 100 UNITS/ML SUB-Q ×2 (11:54→17:18)
--- NOTE | 2021-09-16 15:45 | PM.CNOR ---
Assessment and Plan Assessment and plan (1) Acute osteomyelitis of metatarsal bone of right foot: Onset Date: ~08/2021 Code(s): M86.171 - Other acute osteomyelitis, right ankle and foot Status: Acute Assessment and Plan: Updated history, physical exam and radiographs reviewed with the patient. Interval changes reviewed. Chronic plantar ulceration with neglected care for the past 6 months. Uncontrolled diabetes with hemoglobin A1c 8.1. Radiographs show involvement of the 1st metatarsal with osteomyelitis. Discussed the condition, nature, etiology and course of natural history with the patient. Treatment options including surgical and nonoperative treatment were reviewed. Risks and benefits of each as well as alternatives reviewed. The patient's questions were answered. Verbalizes need for surgical debridement. Discussed risk of amputation of the hallux due to loss of bone. Patient verbalizes understanding. Continue with IV antibiotics. Dressing changes started. Plan for surgical debridement and possible amputation. (2) Diabetic foot ulcer: Qualifiers: Diabetic foot ulcer location: unspecified part of foot Diabetes mellitus type: type 2 Laterality: right Non-pressure ulcer stage: unspecified non-pressure ulcer stage Qualified Code(s): E11.621 - Type 2 diabetes mellitus with foot ulcer; L97.519 - Non-pressure chronic ulcer of other part of right foot with unspecified severity Code(s): E11.621 - Type 2 diabetes mellitus with foot ulcer; L97.509 - Non-pressure chronic ulcer of other part of unspecified foot with unspecified severity Status: Acute (3) Insulin dependent type 2 diabetes mellitus: Onset Date: Unknown Code(s): E11.9 - Type 2 diabetes mellitus without complications; Z79.4 - assisted (current) use of insulin Status: Chronic History of Present Illness HPI Consult date: 09/16/21 Requesting physician: Lacey Hogan PA-C Chief complaint: Right Foot Ulcer 51-year-old gentleman known to the service for previous right foot ulcers, diabetic infections, osteomyelitis and surgery. Patient was lost to follow-up due to noncompliance spring of last year. Presented to emergency room yesterday with plantar ulcer right foot exposed bone and swelling of the hallux. Purulence drainage noted. Patient Admitted for antibiotics, wound care and further treatment. States ulceration on off for the past 6 months. Was treating on his own with dressing changes. Current symptoms: Reports fever(s), drainage, ulceration and odor Location: toe ( Right hallux) Duration: 4-6 months Review of Systems Constitutional: Constitutional: Reports no additional constitutional complaints, Reports chills, Denies excessive sweating, Denies fever(s) and Denies weight gain Eyes: Eyes: Reports no additional eye complaints and Denies change in vision ENT: Reports system reviewed and no additional complaints, except as documented and Reports Normal hearing present Cardiovascular: Cardiovascular: Denies chest pain, Denies diaphoresis, Denies leg ulcers and Denies dyspnea on exertion Respiratory: Respiratory: Reports no additional respiratory complaints, Denies cough and Denies dyspnea on exertion Gastrointestinal: Gastrointestinal: Reports no additional gastrointestinal complaints, Denies abdominal pain, Denies constipation, Denies nausea and Denies vomiting Genitourinary: Genitourinary: Reports no additional male genitourinary complaints, Denies hematuria and Denies urinary frequency Musculoskeletal: Musculoskeletal: Reports as per HPI Integumentary/Breasts: Skin/Breast: Reports as per HPI, Reports lesions, Reports erythema, Reports skin ulcer and Reports wounds Neurologic: Reports Normal hearing present Psychiatric: Psychiatric: Reports no additional psychiatric complaints Endocrine: Endocrine: Reports no additional endocrine complaints, Denies change in body appearance, Denies excessive swe
[2021-09-16 16:36] LABS: Glucose Point of Care 216 mg/dl (65-105)
--- NOTE | 2021-09-16 18:55 | PC.NURSE ---
spoke with pharmacy about 1800 vanc. they are preparing a new dose. will pass on to weight shifter to give
[2021-09-16] MEDS: INSULIN HUMAN ISOPHAN/REGULAR 70/30 (*BKC) 100 UNITS/ML 30 UNITS SUB-Q (21:09)
[2021-09-16 21:25] LABS: Glucose Point of Care 401 mg/dl (65-105)
[2021-09-16 23:05] LABS: Glucose Point of Care 248 mg/dl (65-105)
[2021-09-17] VITALS (15 sets, daily range): BP systolic 96–118; BP diastolic 43–76; PULSE 55–85; RESP 12–22; TEMP 36.2–37; O2SAT 95–100
[2021-09-17] MEDS: SODIUM CHLORIDE 0.9% IV 1,000 ML 100 ML IV CONT (02:46)
[2021-09-17] MEDS: HYDROcodone/acetaminophen (*CRX) 5-325 MG TABLET 1 TAB PO ×3 (03:52→23:37)
[2021-09-17 05:57] LABS: Basophils Absolute Auto 0.1 K/mm3 (0.0-0.1); Basophils Percent Auto 1.1 % (0.2-1.2); Eosinophils Absolute Auto 0.2 K/mm3 (0-0.3); Eosinophils Percent Auto 2.6 % (0-4.4); Hemoglobin 11.3 g/dL (14.0-18.0); Immature Granulocyte Absolute 0.06 K/mm3 (0.00-0.031); Immature Granulocyte Percent A 0.9 % (0-0.5); Lymphocytes Absolute Auto 1.38 K/mm3 (0.9-3.2); Lymphocytes Percent Auto 21.3 % (18.3-44.2); Mean Corpuscular HGB Conc 33.2 g/dl (32-36); Mean Corpuscular Hemoglobin 28.5 pg (26-34); Mean Corpuscular Volume 85.9 fl (80-100); Mean Platelet Volume 8.2 fl (7.4-10.4); Monocytes Absolute Auto 0.6 K/mm3 (0.1-0.6); Monocytes Percent Auto 8.5 % (2.6-8.5); Neutrophils Absolute Auto 4.3 K/mm3 (1.3-6.7); Neutrophils Percent Auto 65.6 % (45.5-73.1); Platelet Count Result 326 k/mm3 (150-375); Red Blood Count 3.96 M/mm3 (4.6-6.20); Red Cell Distribution Width 13.2 % (11.5-14.5); White Blood Count 6.5 K/mm3 (4.5-10.0)
[2021-09-17 06:17] LABS: Alanine Aminotransferase 16 U/L (4-50); Albumin Level 3.2 g/dL (3.5-5.1); Alkaline Phosphatase 111 U/L (38-126); Anion Gap 3 mmol/L (8-16); Aspartate Amino Transferase 25 U/L (17-59); Bilirubin,Total 0.3 mg/dL (0.2-1.3); Blood Urea Nitrogen 12 mg/dL (9-20); Calcium 8.1 mg/dL (8.4-10.2); Carbon Dioxide 29 mmol/L (22-30); Chloride 99 mmol/L (98-107); Estimated CRCL calculation 166 ml/min; Estimated Glomerular Filt Rate > 60; Glucose 194 mg/dL (65-110); Magnesium 2.2 mg/dL (1.6-2.3); Potassium 4.3 mmol/L (3.4-5.0); Sodium 131 mmol/L (137-145)
[2021-09-17 07:02] LABS: Atypical Lymphocytes Present; Platelet Estimate Adequate (Adequate)
--- NOTE | 2021-09-17 08:10 | WPDHPUPDATE1 ---
History and Physical Update Update Date/Time: 09/17/21 08:10 History and Physical has been reviewed, including an updated exam of the patient. There are NO changes in the patient's condition. Risks, benefits, and alternatives have been discussed and questions answered. Patient agrees to proceed with procedure.
[2021-09-17 08:14] LABS: Glucose Point of Care 158 mg/dl (65-105)
[2021-09-17] MEDS: METOPROLOL TARTRATE 25 MG TABLET PO ×2 (09:16→17:17)
[2021-09-17] MEDS: EMPAGLIFLOZIN 10 MG TABLET PO (09:16)
--- NOTE | 2021-09-17 09:55 | PM.IMPN ---
Progress Note: A&P Additional Plan Assessment and Plan (1) Diabetic infection of right foot: Onset Date: ~08/2021 Code(s): E11.628 - Type 2 diabetes mellitus with other skin complications; L08.9 - Local infection of the skin and subcutaneous tissue, unspecified Status: Acute Assessment and Plan: - Continue IV Abx of Vancomycin and Imipenem. Vanc Trough as per pharmacy guidelines. - Dr. Burton to take to OR to perform I&D and possible amputation of the Halux bone. Dr. Burton explained to patient and gave consent. - Dressing per Orthopedic orders. - Wound and Blood cultures are pending. 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 does not have good Diabetes control as evidenced by his A1C, his refusing insulins and not being compliant with therapies. A discussion with pt. was had today as noted and pt. denies refusing insulin. The pt. was educated for tight glucose control in order to heal properly. His home regimen is not adequate as his A1C is climbing. His home 70/30 prn is discontinued. His SSI is changed to high dose and Lantus at HS is being started. (2) Cellulitis of foot, right: Onset Date: ~08/2021 Code(s): L03.115 - Cellulitis of right lower limb Status: Acute Assessment and Plan: - Continue IV abx of Vancomycin and Imipenem with Vanc trough according to pharmacy guidelines. - Wound and blood cultures are pending. - Again, the need for tight glucose control is explained to the patient and insulin orders are changed. (3) Acute osteomyelitis of metatarsal bone of right foot: Onset Date: ~08/2021 Code(s): M86.171 - Other acute osteomyelitis, right ankle and foot Status: Acute Assessment and Plan: - Pt. is receiving IV abx treatment with Imipenem and Vanc. - Orthopedics to treat today definitively in OR. - Blood and wound cultures are pending. 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 This is upward trending since 08/20/20 when it was 6.8, and then on 12/18/20 when it was 7.4. This pt. does not have a good control at home of his chronic treatment. - Maintain a Diabetic diet. - Continue Accu checks - Continue Jardiance - SSI initiated, but pt. does not want to take it and refused today's dose. Pt. is counseled for the need of the insulin for mulitple reasons including the immediate reason of wound healing, as well as the need for continue treatment to prevent any further vascular damage related to DM and to decrease risk of CAD related events and CVA. Nurse was advised to document his refusal. - Will consider Dietitian consult once definitive plan for his care is made. - Pt. does not have good Diabetes control as evidenced by his A1C, his refusing insulins and not being compliant with therapies. A discussion with pt. was had today as noted and pt. denies refusing insulin. The pt. was educated for tight glucose control in order to heal properly. His home regimen is not adequate as his A1C is climbing. His home 70/30 prn is discontinued. His SSI is changed to high dose and Lantus at HS is being started (5) Hypertension: Onset Date: Unknown Code(s): I10 - Essential (primary) hypertension Status: Chronic Assessment and Plan: - Currently appears well controlled. There are a few lower blood pressures outlying. Will continue to monitor. Will decrease as coverage as needed. - Continue Lisinopril 10 mg po daily, Metoprolol 25 mg po BID, - Monitor trend with VS. (6) Tobacco abuse: Onset Date: Unkno
[2021-09-17 11:54] LABS: Glucose Point of Care 153 mg/dl (65-105)
[2021-09-17] MEDS: LACTATED RINGERS 1,000 ML 30 ML IV CONT (12:05)
[2021-09-17 12:38] LABS: Glucose Point of Care 179 mg/dl (65-105)
[2021-09-17] MEDS: ACETAMINOPHEN 500 MG TABLET 1000 MG PO (12:55)
[2021-09-17] MEDS: KETOROLAC 15 MG/ML VIAL (*BKC) IV PUSH (12:56)
--- NOTE | 2021-09-17 12:57 | WPDANESEPPF ---
Anes - Initial Pre Proc Eval Procedure: Operation Date: 09/17/21 13:30 Proposed Procedures p Debridement Right Foot - Royer Burton MD Date/Time: 09/17/21 12:57 Surgeon: Zheng Bassett MD Pre Op Diagnosis: Right Foot Ulcer Patient Data Age: 51 Gender: M Height: 1.8 m Weight: 126.3 kg Last Vital Signs Temp 97.3 F L 09/17/21 05:13 Pulse 84 09/17/21 09:16 Resp 17 09/17/21 05:13 BP 114/64 09/17/21 05:13 Pulse Ox 96 09/17/21 05:13 Allergies Allergy/AdvReac Type Severity Reaction Status Date / Time No Known Allergies Allergy Verified 09/15/21 15:13 Home Medications Medication Instructions Recorded Confirmed Type lisinopril 10 mg PO DAILY 01/01/20 09/15/21 History Humulin 70/30 U-100 Insulin 40 unit SUBCUT BID PRN 08/19/20 09/15/21 History Jardiance 10 mg DAILY 08/19/20 09/15/21 History aspirin 81 mg PO DAILY 08/19/20 09/15/21 History atorvastatin 80 mg DAILY 08/19/20 09/15/21 History metoprolol tartrate 25 mg PO BID 08/19/20 09/15/21 History Laboratory Tests 09/16/21 09/16/21 09/16/21 16:11 17:41 19:48 WBC RBC Hgb Hct MCV MCH MCHC RDW Plt Count MPV Immature Gran % (Auto) Neut % (Auto) Lymph % (Auto) [place] % (Auto) Eos % (Auto) Baso % (Auto) Lymph # (Auto) [place] # (Auto) Eos # (Auto) Baso # (Auto) Abs Immat Gran (auto) Absolute Neuts (auto) Absolute Nucleated RBC Nucleated RBC % Atypical Lymphocytes Platelet Estimate Sodium Potassium Chloride Carbon Dioxide Anion Gap BUN Creatinine Estim Creat Clear Calc Estimated GFR Glucose POC Capillary Glucose 216 mg/dl H mg/dl 401 mg/dl H mg/dl (65-105) (65-105) Calcium Magnesium Total Bilirubin AST ALT Alkaline Phosphatase Total Protein Albumin Vancomycin Trough 10.0 ug/mL ug/mL (10.0-20.0) 09/16/21 09/17/21 09/17/21 22:59 05:43 05:43 WBC 6.5 K/mm3 K/mm3 (4.5-10.0) RBC 3.96 M/mm3 L M/mm3 (4.6-6.20) Hgb 11.3 g/dL L g/dL (14.0-18.0) Hct 34.0 % L % (42.0-52.0) MCV 85.9 fl fl (80-100) MCH 28.5 pg pg (26-34) MCHC 33.2 g/dl g/dl (32-36) RDW 13.2 % % (11.5-14.5) Plt Count 326 k/mm3 k/mm3 (150-375) MPV 8.2 fl fl (7.4-10.4) Immature Gran % (Auto) 0.9 % H % (0-0.5) Neut % (Auto) 65.6 % % (45.5-73.1) Lymph % (Auto) 21.3 % % (18.3-44.2) [place] % (Auto) 8.5 % % (2.6-8.5) Eos % (Auto) 2.6 % % (0-4.4) Baso % (Auto) 1.1 % % (0.2-1.2) Lymph # (Auto) 1.38 K/mm3 K/mm3 (0.9-3.2) [place] # (Auto) 0.6 K/mm3 K/mm3 (0.1-0.6) Eos # (Auto) 0.2 K/mm3 K/mm3 (0-0.3) Baso # (Auto) 0.1 K/mm3 K/mm3 (0.0-0.1) Abs Immat Gran (auto) 0.06 K/mm3 H K/mm3 (0.00-0.031) Absolute Neuts (auto) 4.3 K/mm3 K/mm3 (1.3-6.7) Absolute Nucleated RBC 0.0 K/mm3 K/mm3 (0.0-0.012) Nucleated RBC % 0.0 % % (0.0-0.2) Atypical Lymphocytes Present Platelet Estimate Adequate (Adequate) Sodium 131 mmol/L L mmol/L (137-145) Potassium 4.3 mmol/L mmol/L (3.4-5.0) Chloride 99 mmol/L mmol/L (98-107) Carbon Dioxide 29 mmol/L mmol/L (22-30) Anion Gap 3 mmol/L L mmol/L (8-16) BUN 12 mg/dL mg/dL (9-20) Creatinine 0.60 mg/dL L mg/dL (0.7-1.3) Estim Creat Cl
[2021-09-17] MEDS: VANCOMYCIN HCL 1,000 MG VIAL 1000 MG TOPICAL (14:13)
--- NOTE | 2021-09-17 14:46 | P.OP_ITS ---
Procedure Note - Detailed Date of Procedure 09/17/21 Pre-op Diagnosis Right Foot Ulcer Post-op Diagnosis same Procedure Performed Right 1st ray amputation Surgeon Royer Burton MD [place] 1st junior assistant manager Anesthesia general Indications 51-year-old gentleman with diabetes and peripheral neuropathy and history of previous ulcerations and infections to the right foot was admitted with a chronic ulcer plantar right foot with exposed bone. Purulent drainage noted. Patient presents to the operating room for surgical treatment. Findings Osteomyelitis and necrosis of the right 1st metatarsal and proximal phalanx of the hallux. Abscess from the metatarsophalangeal joint communicating with the plantar ulcer. Unable to salvage the hallux due to involvement of infection as well as necrosis of the entire distal 1st metatarsal and the proximal phalanx. Description of Procedure Discussion of treatment options with the patient. Risks benefits and alternatives of surgery discussed in detail. Informed consent given. Operative extremity marked in the preoperative holding area. The patient is currently on intravenous antibiotics. He is brought to the operating room and positioned supine in the operating room table. He underwent general anesthesia by the anesthesia team. Right foot was prepped and draped usual sterile surgical fashion using a Betadine prep solution. Leg tourniquet inflated to 250 mmHg. There was noted to be bone protruding through the plantar ulceration the right foot. The bone was necrotic. A dorsal longitudinal incision was made with a 15 blade knife over the distal 1st metatarsal and metatarsophalangeal joint. There was noted to be necrosis infection of the entire distal aspect of the 1st metatarsal as well as the metatarsophalangeal joint and the entire proximal phalanx of the hallux. Due to this with resection the involved bone the hallux was not able to be salvaged. The infected portion of the 1st metatarsal as well as the hallux or then sharply excised from the surrounding soft tissue and passed off as specimen. Infected soft tissue was sharply debrided with a 15 blade. The portion of remaining 1st metatarsal was then further resected with an osteotome and rongeur to good bleeding healthy appearing bone surface. Wound thoroughly irrigated antibiotic solution. The tourniquet was released and bleeding points were coagulated. Thorough irrigation again done. Vancomycin powder placed in the wound. The wound then closed with 2-0 Monocryl interrupted subcuticular stitches and 0 Prolene interrupted suture for the skin. The resection of the hallux involves the plantar ulceration such that there was no further skin openings after closure. Patient was then awoke from anesthesia, extubated and taken to the recovery room in stable condition. All sponge needle and instrument counts correct at the end of the case. Estimated Blood Loss 20 Tourniquet Time 25 Urine Output 900 Drains No Packing No Pathology yes (Right hallux with 1st metatarsal) Complications None Condition stable Disposition PACU
[2021-09-17 14:52] LABS: Glucose Point of Care 139 mg/dl (65-105)
[2021-09-17] MEDS: fentaNYL CITRATE INJ (*CRX) 100 MCG/2 ML VIAL 25 MCG IV PUSH (15:14)
[2021-09-17 16:53] LABS: Glucose Point of Care 146 mg/dl (65-105)
[2021-09-17] MEDS: SENNA/DOCUSATE SODIUM TABLET 2 TAB PO (17:17)
[2021-09-17 18:53] LABS: Vancomycin Trough 18.2 ug/mL (10.0-20.0)
[2021-09-17] MEDS: HYDROmorphone HCL INJ (*CRX) 1 MG/ML SYR 0.5 MG IV PUSH (20:21)
[2021-09-17] MEDS: FAMOTIDINE 20 MG TABLET PO (20:22)
[2021-09-17] MEDS: INSULIN GLARGINE (*BKC) 100 UNITS/ML 19 UNITS SUB-Q (20:26)
[2021-09-17 21:06] LABS: Glucose Point of Care 174 mg/dl (65-105)
[2021-09-18] VITALS (9 sets, daily range): BP systolic 93–116; BP diastolic 49–70; PULSE 57–80; RESP 16–22; TEMP 35.9–37.1; O2SAT 94–99
[2021-09-18 05:11] LABS: Basophils Absolute Auto 0.1 K/mm3 (0.0-0.1); Eosinophils Absolute Auto 0.2 K/mm3 (0-0.3); Eosinophils Percent Auto 3.4 % (0-4.4); Hematocrit 34.2 % (42.0-52.0); Hemoglobin 11.3 g/dL (14.0-18.0); Immature Granulocyte Absolute 0.05 K/mm3 (0.00-0.031); Immature Granulocyte Percent A 0.8 % (0-0.5); Lymphocytes Absolute Auto 1.78 K/mm3 (0.9-3.2); Lymphocytes Percent Auto 29.9 % (18.3-44.2); Mean Corpuscular Hemoglobin 28.3 pg (26-34); Mean Corpuscular Volume 85.7 fl (80-100); Mean Platelet Volume 8.3 fl (7.4-10.4); Monocytes Absolute Auto 0.4 K/mm3 (0.1-0.6); Monocytes Percent Auto 6.6 % (2.6-8.5); Neutrophils Absolute Auto 3.5 K/mm3 (1.3-6.7); Neutrophils Percent Auto 58.3 % (45.5-73.1); Platelet Count Result 332 k/mm3 (150-375); Red Blood Count 3.99 M/mm3 (4.6-6.20); Red Cell Distribution Width 12.9 % (11.5-14.5)
[2021-09-18 05:31] LABS: Anion Gap 5 mmol/L (8-16); Blood Urea Nitrogen 11 mg/dL (9-20); Calcium 8.5 mg/dL (8.4-10.2); Carbon Dioxide 30 mmol/L (22-30); Chloride 96 mmol/L (98-107); Estimated CRCL calculation 168 ml/min; Estimated Glomerular Filt Rate > 60; Glucose 167 mg/dL (65-110); Potassium 4.1 mmol/L (3.4-5.0); Sodium 131 mmol/L (137-145)
[2021-09-18] MEDS: HYDROmorphone HCL INJ (*CRX) 1 MG/ML SYR 0.5 MG IV PUSH ×3 (05:36→20:37)
[2021-09-18 07:38] LABS: Glucose Point of Care 149 mg/dl (65-105)
[2021-09-18] MEDS: polyethylene glycoL 3350 17 GM POWD.PACK PO (09:07)
[2021-09-18] MEDS: lisinopriL 10 MG TABLET PO (09:07)
[2021-09-18] MEDS: ASPIRIN 81 MG CHEWABLE TABLET PO (09:07)
[2021-09-18] MEDS: EMPAGLIFLOZIN 10 MG TABLET PO (09:07)
[2021-09-18] MEDS: ATORVASTATIN 40 MG TABLET 80 MG PO (09:07)
[2021-09-18] MEDS: SENNA/DOCUSATE SODIUM TABLET 2 TAB PO ×2 (09:07→17:25)
[2021-09-18] MEDS: METOPROLOL TARTRATE 25 MG TABLET PO ×2 (09:07→17:25)
[2021-09-18] MEDS: FAMOTIDINE 20 MG TABLET PO ×2 (09:07→20:34)
--- NOTE | 2021-09-18 09:38 | PM.PNORT ---
Progress Note: A&P Assessment and Plan (1) Status post amputation of toe: Code(s): Z89.429 - Acquired absence of other toe(s), unspecified side Status: Acute Assessment and Plan: POD #1: Right Hallux amputation and debridement of DFU Preliminary Cultures growing Proteus vulgaris. Sensitivities pending. Continue current IV antibiotic regimen. Appreciate hospitalist input. Monitor dressing. Change daily and PRN for increased drainage. Adaptic over incision, gauze and kerlex. NWB RLE. Post Op Shoe. Close glycemic control. Counseled on smoking cessation and proper nutrition/diabetic control for optimal healing. Plan to keep sutures in place x3 weeks. Follow up to be arranged in the [facility] wound clinic. Pain control. Elevate. (2) Cellulitis of foot, right: Onset Date: ~08/2021 Code(s): L03.115 - Cellulitis of right lower limb Status: Acute Subjective Subjective Date/Time Seen: 09/18/21 09:38 Interval history: POD #1: Right Hallux Amputation Patient doing well. Pain uncontrolled overall. Difficulty with dressing overnight. No other concerns. Review of Systems Constitutional: Constitutional: Reports no additional constitutional complaints, Reports chills, Denies excessive sweating, Denies fever(s) and Denies weight gain Eyes: Eyes: Reports no additional eye complaints and Denies change in vision ENT: Reports system reviewed and no additional complaints, except as documented and Reports Normal hearing present Cardiovascular: Cardiovascular: Denies chest pain, Denies diaphoresis, Denies leg ulcers and Denies dyspnea on exertion Respiratory: Respiratory: Reports no additional respiratory complaints, Denies cough and Denies dyspnea on exertion Gastrointestinal: Gastrointestinal: Reports no additional gastrointestinal complaints, Denies abdominal pain, Denies constipation, Denies nausea and Denies vomiting Genitourinary: Genitourinary: Reports no additional male genitourinary complaints, Denies hematuria and Denies urinary frequency Musculoskeletal: Musculoskeletal: Reports as per HPI Integumentary/Breasts: Skin/Breast: Reports as per HPI, Reports lesions, Reports erythema, Reports skin ulcer and Reports wounds Neurologic: Reports Normal hearing present Psychiatric: Psychiatric: Reports no additional psychiatric complaints Endocrine: Endocrine: Reports no additional endocrine complaints, Denies change in body appearance, Denies excessive sweating, Denies polyphagia, Denies polydipsia, Denies polyuria and Reports other (no changes in blood glucose levels. ) Hematologic/Lymphatic: Hematologic/Lymphatic: Reports no additional hematologic/lymphatic complaints and Denies easy bleeding Allergic/Immunologic: Allergic/Immunologic: Reports no additional allergic/immunologic complaints, Denies lip swelling, Denies throat swelling and Denies tongue swelling Exam Const: General: comfortable and no acute distress Resp: Effort & Inspection: normal respiratory effort Cardio: Rate: regular rate Rhythm: regular rhythm GI: Inspection: non-distended GI Palp: Yes Soft to palpation and No Tenderness to palpation present (GI) Skin: Other: Right Hallux amputation. Dressing removed. Moderate sanguinous drainage. Incisions well-approximated. New dressing applied. Mild swelling. No malordor. No erythema. Palpable pedal pulse Neuro: Cognition (Neuro): normal cognition Extrem: Other: see above Psych: Mental Status: mental status grossly normal Thought content: Yes Normal thought content present Objective Data Vital Signs Vital Signs: Vital Signs - 24 hr 09/17/21 13:08 09/17/21 14:31 09/17/21 14:46 Temperature 37.0 C 36.3 C L Pulse Rate 66 59 L 60 Respiratory Rate 20 12 16 Blood Pressure 105/53 L 96/66 L 99/71 L Pulse Oximetry 97 99 98 09/17/21 15:01 09/17/21 15:16 09/17/21 15:45 Temperature 36.2 C L Pulse Rate 61 62 57 L Respiratory Rate 14 22 H 18 Blood Pressure 103/66 102/65
[2021-09-18 11:35] LABS: Glucose Point of Care 81 mg/dl (65-105)
--- NOTE | 2021-09-18 13:00 | PM.IMPN ---
Progress Note: A&P Assessment and Plan (1) Diabetic infection of right foot: Onset Date: ~08/2021 Code(s): E11.628 - Type 2 diabetes mellitus with other skin complications; L08.9 - Local infection of the skin and subcutaneous tissue, unspecified Status: Acute Assessment and Plan: - Continue IV Abx of Vancomycin and Imipenem. Vanc Trough as per pharmacy guidelines. - Awaiting consult of Dr. Burton. - Keep dressed with Sterile ABD and Kerlix daily pending further orders from Orthopedics. - Wound and Blood cultures are pending. - Pt. does not have good Diabetes control as evidenced by his A1C, his refusing insulins and not being compliant with therapies. (2) Cellulitis of foot, right: Onset Date: ~08/2021 Code(s): L03.115 - Cellulitis of right lower limb Status: Acute Assessment and Plan: - Continue IV abx of Vancomycin and Imipenem with Vanc trough according to pharmacy guidelines. - Wound and blood cultures are unrevealing so far. (3) Acute osteomyelitis of metatarsal bone of right foot: Onset Date: ~08/2021 Code(s): M86.171 - Other acute osteomyelitis, right ankle and foot Status: Acute Assessment and Plan: - Pt. is receiving IV abx treatment with Imipenem and Vanc. - Orthopedics consult is pending for definitive treatment. - Blood and wound cultures are pending. (4) Insulin dependent type 2 diabetes mellitus: Onset Date: Unknown Code(s): E11.9 - Type 2 diabetes mellitus without complications; Z79.4 - parts counterman (current) use of insulin Status: Chronic Assessment and Plan: - A1C = 8.1. This is upward trending since 08/20/20 when it was 6.8, and then on 12/18/20 when it was 7.4. This pt. does not have a good control at home of his chronic treatment. - Maintain a Diabetic diet. - Continue Accu checks; they are in the 81-150 range. - Continue Jardiance - SSI initiated, but pt. does not want to take it and refused today's dose. Pt. is counseled for the need of the insulin for mulitple reasons including the immediate reason of wound healing, as well as the need for continue treatment to prevent any further vascular damage related to DM and to decrease risk of CAD related events and CVA. Nurse was advised to document his refusal. - Will consider Dietitian consult once definitive plan for his care is made. (5) Hypertension: Onset Date: Unknown Code(s): I10 - Essential (primary) hypertension Status: Chronic Assessment and Plan: - Blood pressure on the low side. - Hold Lisinopril 10 mg po daily, Metoprolol 25 mg po BID, - Monitor trend with VS. (6) Tobacco abuse: Onset Date: Unknown Code(s): Z72.0 - Tobacco use Status: Chronic Assessment and Plan: - Pt. was counselled for smoking cessation. - Nicotine patch ordered. Additional Plan Assessment and Plan (1) Diabetic infection of right foot: Onset Date: ~08/2021 Code(s): E11.628 - Type 2 diabetes mellitus with other skin complications; L08.9 - Local infection of the skin and subcutaneous tissue, unspecified Status: Acute Assessment and Plan: - Continue IV Abx of Vancomycin and Imipenem. Vanc Trough as per pharmacy guidelines. - Dr. Burton to take to OR to perform I&D and possible amputation of the Halux bone. Dr. Burton explained to patient and gave consent. - Dressing per Orthopedic orders. - Wound and Blood cultures are pending. 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 does not have good Diabetes control as evidenced by his A1C, his refusing insulins and not being compliant with therapies. A discussion with pt. was had today as noted and pt. denies refusing insulin. The pt. was educated for tight glucose control in order to heal properly. His home regimen is not adequate as his A1C is climbing. His home 70/30 prn is di
--- NOTE | 2021-09-18 14:10 | PCCARD ---
Patient refused echocardiogram exam. I informed his nurse Crista of his refusal. Linnea Dee
[2021-09-18 16:33] LABS: Glucose Point of Care 150 mg/dl (65-105)
[2021-09-18] MEDS: HYDROcodone/acetaminophen (*CRX) 7.5-325 MG TABLET 1 TAB PO (17:28)
[2021-09-18] MEDS: INSULIN GLARGINE (*BKC) 100 UNITS/ML 19 UNITS SUB-Q (20:36)
[2021-09-18 21:36] LABS: Glucose Point of Care 258 mg/dl (65-105)
[2021-09-19] MEDS: HYDROcodone/acetaminophen (*CRX) 7.5-325 MG TABLET 1 TAB PO ×4 (02:50→23:56)
[2021-09-19 05:55] LABS: Estimated CRCL calculation 145 ml/min; Estimated Glomerular Filt Rate > 60
[2021-09-19 07:42] LABS: Glucose Point of Care 162 mg/dl (65-105)
[2021-09-19 08:00] VITALS: O2SAT 97
[2021-09-19 08:14] VITALS: BP 100/50; PULSE 66; RESP 16; O2SAT 97
--- NOTE | 2021-09-19 08:14 | PM.PNORT ---
Progress Note: A&P Assessment and Plan (1) Acute osteomyelitis of metatarsal bone of right foot: Onset Date: ~08/2021 Code(s): M86.171 - Other acute osteomyelitis, right ankle and foot Status: Acute Assessment and Plan: postoperative day 2 right 1st ray amputation. Cultures and sensitivity noted. Dressing changed today. Continue with b.i.d. dressing changes for serosanguineous drainage. Edema control with elevation. Nonweightbearing. plan for antibiotic regimen. Pain control Subjective Subjective Date/Time Seen: 09/19/21 08:14 Post Op day: 2 Principal diagnosis: Right foot osteomyelitis Interval history: awake and alert. No complaints overnight. Exam Const: General: comfortable and no acute distress Orientation/consciousness: oriented to person, oriented to place, oriented to time and No confusion HENMT: Head: normal to inspection, normocephalic and atraumatic Eyes: Conjunctivae: conjunctivae normal Sclera: sclerae normal Neck: Neck: supple and nontender Resp: Effort & Inspection: normal respiratory effort Cardio: Rate: regular rate Rhythm: regular rhythm GI: Inspection: non-distended GI Palp: Yes Soft to palpation and No Tenderness to palpation present (GI) Skin: General skin exam: no rashes or lesions noted Other: Right Hallux amputation. Dressing removed. Moderate sanguinous drainage. Incisions well-approximated. New dressing applied. Mild swelling. No malordor. No erythema. Palpable pedal pulse Neuro: General: oriented to person, oriented to place, oriented to time and No confusion Cognition (Neuro): normal cognition Extrem: Right upper extremity: normal to inspection Left upper extremity: normal to inspection Right lower extremity: ankle Details: normal to inspection, abnormal ROM Details: with range as follows (ankle dorsiflexion -10 degrees, plantar flexion 40?, inversion 15?, eversion 15?) and other ( good stability all directions); no tenderness, no swelling and no ecchymosis and foot Details: abnormal to inspection Details: other ( Amputation hallux and 3rd toe), vascular exam Details: dorsalis pedis pulse present and normal capillary refill, tendon exam Details: active flexion abnormal and active extension abnormal and motor-sensory exam Details: two point discrimination abnormal Location: in all toes and light-touch abnormal Location: in all toes Left lower extremity: ankle Details: normal to inspection and abnormal ROM Details: with range as follows (ankle dorsiflexion -10 degrees, plantar flexion 40?, inversion 15?, eversion 15?); no tenderness and no swelling and foot Details: normal capillary refill, abnormal to inspection ( amputation 3rd toe), abnormal ROM of toe, vascular exam (2+DP pulse, good cap refill all toes), tendon exam active flexion abnormal of the great toe and active extension abnormal of the great toe and motor-sensory exam two point discrimination abnormal and light-touch abnormal in all toes; no tenderness and no crepitus Other: Psych: Mental Status: mental status grossly normal Affect: normal affect Thought content: Yes Normal thought content present Objective Data Vital Signs Vital Signs: Vital Signs - 24 hr 09/18/21 09:07 09/18/21 09:08 09/18/21 13:08 Temperature 97.9 F 98.0 F Pulse Rate 77 76 65 Respiratory Rate 20 18 Blood Pressure 116/70 98/56 L Pulse Oximetry 96 99 09/18/21 17:08 09/18/21 17:25 09/18/21 20:13 Temperature 98.7 F 97.2 F L Pulse Rate 65 80 59 L Respiratory Rate 16 22 H Blood Pressure 93/49 L 111/60 Pulse Oximetry 97 99 09/18/21 20:34 Temperature Pulse Rate 57 L Respiratory Rate Blood Pressure Pulse Oximetry 95 Intake/Output Intake/Output: Intake & Output 09/16/21 09/17/21 09/18/21 09/19/21 23:59 23:59 23:59 23:59 Intake Total 5810 3790 4660 1400 Output Total 4700 3800 3050 3400 Balance 1110 -10 1610 -2000 Meds/Results Medications: Active Medications Generic Name Dose Route Start L
[2021-09-19] MEDS: ASPIRIN 81 MG CHEWABLE TABLET PO (08:20)
[2021-09-19] MEDS: ATORVASTATIN 40 MG TABLET 80 MG PO (08:21)
[2021-09-19] MEDS: SENNA/DOCUSATE SODIUM TABLET 2 TAB PO ×2 (08:21→17:16)
[2021-09-19] MEDS: EMPAGLIFLOZIN 10 MG TABLET PO (08:21)
[2021-09-19] MEDS: polyethylene glycoL 3350 17 GM POWD.PACK PO (08:21)
[2021-09-19] MEDS: FAMOTIDINE 20 MG TABLET PO ×2 (08:21→20:17)
[2021-09-19 08:49] VITALS: O2SAT 95
[2021-09-19 11:28] LABS: Glucose Point of Care 141 mg/dl (65-105)
--- NOTE | 2021-09-19 13:31 | PM.IMPN ---
Progress Note: A&P Assessment and Plan (1) Diabetic infection of right foot: Onset Date: ~08/2021 Code(s): E11.628 - Type 2 diabetes mellitus with other skin complications; L08.9 - Local infection of the skin and subcutaneous tissue, unspecified Status: Acute Assessment and Plan: - Continue IV Abx of Vancomycin and Imipenem. Vanc Trough as per pharmacy guidelines. - Awaiting consult of Dr. Burton. - Keep dressed with Sterile ABD and Kerlix daily pending further orders from Orthopedics. - Wound and Blood cultures are pending. - Pt. does not have good Diabetes control as evidenced by his A1C, his refusing insulins and not being compliant with therapies. (2) Cellulitis of foot, right: Onset Date: ~08/2021 Code(s): L03.115 - Cellulitis of right lower limb Status: Acute Assessment and Plan: - Continue IV abx of Vancomycin and Imipenem with Vanc trough according to pharmacy guidelines. - Wound and blood cultures are unrevealing so far. (3) Acute osteomyelitis of metatarsal bone of right foot: Onset Date: ~08/2021 Code(s): M86.171 - Other acute osteomyelitis, right ankle and foot Status: Acute Assessment and Plan: - Pt. is receiving IV abx treatment with Imipenem and Vanc. - Orthopedics consult is pending for definitive treatment. - Blood cultures are unrevealing and wound cultures are growing Proteus and group a streptococcus. -diabetic foot infection classically polymicrobial in nature. Continue imipenem and vancomycin. (4) Insulin dependent type 2 diabetes mellitus: Onset Date: Unknown Code(s): E11.9 - Type 2 diabetes mellitus without complications; Z79.4 - termite inspector (current) use of insulin Status: Chronic Assessment and Plan: - A1C = 8.1. This is upward trending since 08/20/20 when it was 6.8, and then on 12/18/20 when it was 7.4. This pt. does not have a good control at home of his chronic treatment. - Maintain a Diabetic diet. - Continue Accu checks; they are in the 81-150 range. - Continue Jardiance - SSI initiated, but pt. does not want to take it and refused today's dose. Pt. is counseled for the need of the insulin for mulitple reasons including the immediate reason of wound healing, as well as the need for continue treatment to prevent any further vascular damage related to DM and to decrease risk of CAD related events and CVA. Nurse was advised to document his refusal. - Will consider Dietitian consult once definitive plan for his care is made. (5) Hypertension: Onset Date: Unknown Code(s): I10 - Essential (primary) hypertension Status: Chronic Assessment and Plan: - Blood pressure remains on the low side. - Hold Lisinopril 10 mg po daily, Metoprolol 25 mg po BID, - Monitor trend with VS. (6) Tobacco abuse: Onset Date: Unknown Code(s): Z72.0 - Tobacco use Status: Chronic Assessment and Plan: - Pt. was counselled for smoking cessation. - Nicotine patch ordered. Additional Plan Assessment and Plan (1) Diabetic infection of right foot: Onset Date: ~08/2021 Code(s): E11.628 - Type 2 diabetes mellitus with other skin complications; L08.9 - Local infection of the skin and subcutaneous tissue, unspecified Status: Acute Assessment and Plan: - Continue IV Abx of Vancomycin and Imipenem. Vanc Trough as per pharmacy guidelines. - Dr. Burton to take to OR to perform I&D and possible amputation of the Halux bone. Dr. Burton explained to patient and gave consent. - Dressing per Orthopedic orders. - Wound and Blood cultures are pending. 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 does not have good Diabetes control as evidenced by his A1C, his refusing insulins and not being compliant with therapies. A discussion with pt. was had today as noted and pt. denies refusing
[2021-09-19 13:40] VITALS: BP 115/62; PULSE 77; RESP 14; TEMP 36.6; O2SAT 97
[2021-09-19 16:36] LABS: Glucose Point of Care 154 mg/dl (65-105)
[2021-09-19] MEDS: INSULIN GLARGINE (*BKC) 100 UNITS/ML 20 UNITS SUB-Q (20:16)
[2021-09-19 20:46] LABS: Glucose Point of Care 193 mg/dl (65-105)
[2021-09-19 21:50] VITALS: BP 107/77; PULSE 86; RESP 16; TEMP 36.6; O2SAT 99
[2021-09-20 01:09] VITALS: BP 101/64; PULSE 59; RESP 14; TEMP 36.6; O2SAT 98
[2021-09-20 06:50] VITALS: BP 148/61; PULSE 70; RESP 16; TEMP 36.6; O2SAT 97
[2021-09-20 07:49] LABS: Glucose Point of Care 158 mg/dl (65-105)
[2021-09-20] MEDS: ATORVASTATIN 40 MG TABLET 80 MG PO (08:55)
[2021-09-20] MEDS: SENNA/DOCUSATE SODIUM TABLET 2 TAB PO ×2 (08:55→17:20)
[2021-09-20] MEDS: FAMOTIDINE 20 MG TABLET PO ×2 (08:55→20:13)
[2021-09-20] MEDS: polyethylene glycoL 3350 17 GM POWD.PACK PO (08:55)
[2021-09-20] MEDS: EMPAGLIFLOZIN 10 MG TABLET PO (08:55)
[2021-09-20] MEDS: ASPIRIN 81 MG CHEWABLE TABLET PO (08:55)
--- NOTE | 2021-09-20 10:25 | PM.IMPN ---
Progress Note: A&P Assessment and Plan (1) Diabetic infection of right foot: Onset Date: ~08/2021 Code(s): E11.628 - Type 2 diabetes mellitus with other skin complications; L08.9 - Local infection of the skin and subcutaneous tissue, unspecified Status: Acute Assessment and Plan: - Continue IV Abx of Vancomycin and Imipenem. Vanc Trough as per pharmacy guidelines. -Follow up recommendations by Dr. Burton. - Keep dressed with Sterile ABD and Kerlix daily pending further orders from Orthopedics. - Wound and Blood cultures are pending. - Pt. does not have good Diabetes control as evidenced by his A1C, his refusing insulins and not being compliant with therapies. -PAtient accu-checks have remained within desirable range here; he was encouraged to implement dietary modifications and to continue blood glucose management. He will be referred to [facility] as an outpatient. (2) Cellulitis of foot, right: Onset Date: ~08/2021 Code(s): L03.115 - Cellulitis of right lower limb Status: Acute Assessment and Plan: - Continue IV abx of Vancomycin and Imipenem with Vanc trough according to pharmacy guidelines. - Wound and blood cultures are unrevealing so far. -diabetic foot infection being multi-microbial, continue broad-spectrum antibiotic coverage with ertapenem and vancomycin. Consideration for PICC line insertion and continuous and IV antibiotic course at home. (3) Acute osteomyelitis of metatarsal bone of right foot: Onset Date: ~08/2021 Code(s): M86.171 - Other acute osteomyelitis, right ankle and foot Status: Acute Assessment and Plan: - Pt. is receiving IV abx treatment with Imipenem and Vanc. -patient underwent right hallux amputation. A pathology pending. Follow-up - Blood cultures are unrevealing and wound cultures are growing Proteus and group a streptococcus. -diabetic foot infection classically polymicrobial in nature. Continue imipenem and vancomycin. (4) Insulin dependent type 2 diabetes mellitus: Onset Date: Unknown Code(s): E11.9 - Type 2 diabetes mellitus without complications; Z79.4 - retirement (current) use of insulin Status: Chronic Assessment and Plan: - A1C = 8.1. This is upward trending since 08/20/20 when it was 6.8, and then on 12/18/20 when it was 7.4. This pt. does not have a good control at home of his chronic treatment. - Maintain a Diabetic diet. - Continue Accu checks; they are in the 141-193 range. - Continue Jardiance - SSI initiated, but pt. does not want to take it and refused today's dose. Pt. is counseled for the need of the insulin for mulitple reasons including the immediate reason of wound healing, as well as the need for continue treatment to prevent any further vascular damage related to DM and to decrease risk of CAD related events and CVA. Nurse was advised to document his refusal. - Will consider Dietitian consult once definitive plan for his care is made. (5) Hypertension: Onset Date: Unknown Code(s): I10 - Essential (primary) hypertension Status: Chronic Assessment and Plan: - Blood pressure remains on the low side, with systolic in the 110s except for excursion at 148/61. Continue to follow up overall trend. At this time holding his blood pressure medications is not unreasonable. Per patient, he has not been smoking here and his blood pressure usually falls within acceptable range when is not smoking. He was encouraged to continue to quit smoking. - Hold Lisinopril 10 mg po daily, Metoprolol 25 mg po BID, - Monitor trend with VS. (6) Tobacco abuse: Onset Date: Unknown Code(s): Z72.0 - Tobacco use Status: Chronic Assessment and Plan: - Pt. was counselled for smoking cessation. - Nicotine patch ordered. Additional Plan Assessment and Plan (1) Diabetic infection of right foot: Onset Date: ~08/2021 Code(s): E11.628 - Type 2 diabetes mellitus
[2021-09-20 11:26] LABS: Glucose Point of Care 131 mg/dl (65-105)
[2021-09-20] MEDS: HYDROcodone/acetaminophen (*CRX) 7.5-325 MG TABLET 1 TAB PO ×2 (11:45→20:13)
[2021-09-20 12:04] LABS: Basophils Absolute Auto 0.1 K/mm3 (0.0-0.1); Basophils Percent Auto 1.1 % (0.2-1.2); Eosinophils Absolute Auto 0.2 K/mm3 (0-0.3); Eosinophils Percent Auto 2.7 % (0-4.4); Hematocrit 38.8 % (42.0-52.0); Hemoglobin 12.7 g/dL (14.0-18.0); Immature Granulocyte Absolute 0.03 K/mm3 (0.00-0.031); Immature Granulocyte Percent A 0.4 % (0-0.5); Lymphocytes Absolute Auto 1.98 K/mm3 (0.9-3.2); Lymphocytes Percent Auto 28.2 % (18.3-44.2); Mean Corpuscular HGB Conc 32.7 g/dl (32-36); Mean Corpuscular Hemoglobin 28.7 pg (26-34); Mean Corpuscular Volume 87.6 fl (80-100); Mean Platelet Volume 8.1 fl (7.4-10.4); Monocytes Absolute Auto 0.3 K/mm3 (0.1-0.6); Monocytes Percent Auto 3.8 % (2.6-8.5); Neutrophils Absolute Auto 4.5 K/mm3 (1.3-6.7); Neutrophils Percent Auto 63.8 % (45.5-73.1); Platelet Count Result 394 k/mm3 (150-375); Red Blood Count 4.43 M/mm3 (4.6-6.20); Red Cell Distribution Width 12.8 % (11.5-14.5)
[2021-09-20 12:14] LABS: Anion Gap 8 mmol/L (8-16); Blood Urea Nitrogen 14 mg/dL (9-20); Calcium 8.7 mg/dL (8.4-10.2); Carbon Dioxide 29 mmol/L (22-30); Chloride 99 mmol/L (98-107); Estimated CRCL calculation 145 ml/min; Estimated Glomerular Filt Rate > 60; Glucose 143 mg/dL (65-110); Sodium 136 mmol/L (137-145)
[2021-09-20 13:15] VITALS: BP 109/59; PULSE 78; RESP 16; TEMP 36.4; O2SAT 98
[2021-09-20 16:35] LABS: Glucose Point of Care 192 mg/dl (65-105)
[2021-09-20 19:22] LABS: Vancomycin Trough 20.2 ug/mL (10.0-20.0)
--- NOTE | 2021-09-20 19:41 | PHAR ---
09/20 1800 VANC TROUGH LEVEL = 20.2, TARGET = 15-20. DOSE & SCHEDULE CHANGED TO 2 GM Q12H HR. WILL RECHECK LEVEL 0800 09/22/21.
[2021-09-20 20:00] VITALS: PULSE 72; RESP 14; O2SAT 100
[2021-09-20] MEDS: INSULIN GLARGINE (*BKC) 100 UNITS/ML 20 UNITS SUB-Q (20:12)
[2021-09-20 20:19] VITALS: BP 118/82; PULSE 72; RESP 14; TEMP 36.4; O2SAT 100
[2021-09-20 20:58] LABS: Glucose Point of Care 147 mg/dl (65-105)
[2021-09-21 05:29] LABS: Basophils Absolute Auto 0.1 K/mm3 (0.0-0.1); Eosinophils Absolute Auto 0.2 K/mm3 (0-0.3); Eosinophils Percent Auto 2.7 % (0-4.4); Hematocrit 36.5 % (42.0-52.0); Hemoglobin 12.1 g/dL (14.0-18.0); Immature Granulocyte Absolute 0.05 K/mm3 (0.00-0.031); Immature Granulocyte Percent A 0.7 % (0-0.5); Mean Corpuscular HGB Conc 33.2 g/dl (32-36); Mean Corpuscular Hemoglobin 28.3 pg (26-34); Mean Corpuscular Volume 85.3 fl (80-100); Mean Platelet Volume 8.2 fl (7.4-10.4); Monocytes Absolute Auto 0.3 K/mm3 (0.1-0.6); Monocytes Percent Auto 4.7 % (2.6-8.5); Neutrophils Absolute Auto 4.1 K/mm3 (1.3-6.7); Neutrophils Percent Auto 59.9 % (45.5-73.1); Platelet Count Result 388 k/mm3 (150-375); Red Blood Count 4.28 M/mm3 (4.6-6.20); White Blood Count 6.8 K/mm3 (4.5-10.0)
[2021-09-21 05:39] LABS: Anion Gap 2 mmol/L (8-16); Blood Urea Nitrogen 13 mg/dL (9-20); Calcium 8.6 mg/dL (8.4-10.2); Carbon Dioxide 31 mmol/L (22-30); Chloride 102 mmol/L (98-107); Estimated CRCL calculation 145 ml/min; Estimated Glomerular Filt Rate > 60; Glucose 128 mg/dL (65-110); Potassium 4.1 mmol/L (3.4-5.0); Sodium 135 mmol/L (137-145)
[2021-09-21] MEDS: HYDROcodone/acetaminophen (*CRX) 7.5-325 MG TABLET 1 TAB PO ×3 (05:43→20:21)
[2021-09-21 05:59] VITALS: BP 121/63; PULSE 70; RESP 16; TEMP 36.4; O2SAT 97
[2021-09-21 07:42] LABS: Glucose Point of Care 142 mg/dl (65-105)
[2021-09-21 08:20] VITALS: O2SAT 95
[2021-09-21] MEDS: SENNA/DOCUSATE SODIUM TABLET 2 TAB PO ×2 (09:05→16:55)
[2021-09-21] MEDS: ATORVASTATIN 40 MG TABLET 80 MG PO (09:05)
[2021-09-21] MEDS: FAMOTIDINE 20 MG TABLET PO ×2 (09:05→20:22)
[2021-09-21] MEDS: ASPIRIN 81 MG CHEWABLE TABLET PO (09:05)
[2021-09-21] MEDS: polyethylene glycoL 3350 17 GM POWD.PACK PO (09:06)
[2021-09-21] MEDS: EMPAGLIFLOZIN 10 MG TABLET PO (09:06)
--- NOTE | 2021-09-21 09:46 | PM.PNORT ---
Progress Note: A&P Assessment and Plan (1) Acute osteomyelitis of metatarsal bone of right foot: Onset Date: ~08/2021 Code(s): M86.171 - Other acute osteomyelitis, right ankle and foot Status: Acute Assessment and Plan: POD #4: Right 1st ray amputation. Cultures and sensitivity noted. Plan for PICC line placement and 3 weeks of IV ceftriaxone, then transition to oral bactrim. Continue daily dressing changes. Will transition from adaptic to transfer to wick away moisture of incision line. NWB RLE. Post op shoe. Okay to balance on HEEL only when ambulating or working with PT/OT. Keep walker close by for patient to prevent falls. Elevate RLE on pillows. Antibiotic regimen plans reviewed reviewed with hospitalist and PICC line nurse, Airam. Dispo: Home with home health and IV infusion Follow up to be arranged in the [facility] wound clinic pending final discharge date. Additional Plan Reviewed case, exam, culture results with attending MD, Dr. Burton. Plans for 3 weeks of IV ceftriaxone and then transition to oral Bactrim. No further recommendations. Time Spent With Patient Time with patient: 15 - 25 minutes Subjective Subjective Date/Time Seen: 09/21/21 09:46 Interval history: POD #4: Right hallux amputation Still with c/o pain right foot. Upset with continued hospital stay. Feels he is taking care of myself here . Understands needs for home antibiotics. Concerned about home pain management. Upset with confusion with PT/OT regarding weightbearing status. No other medical concerns. Review of Systems Review of Systems: All systems reviewed & are unremarkable except as noted in HPI and below (HPI ) Exam Const: General: comfortable and no acute distress Resp: Effort & Inspection: normal respiratory effort Cardio: Rate: regular rate Rhythm: regular rhythm GI: Inspection: non-distended GI Palp: Yes Soft to palpation and No Tenderness to palpation present (GI) Skin: Other: Right Hallux amputation. Dressing removed. Mild sanguinous drainage. Incisions well-approximated. New dressing applied. Mild swelling, redness. No malodor. No erythema. Palpable pedal pulse Neuro: General: oriented to person, oriented to place, oriented to time and No confusion Cognition (Neuro): normal cognition Other: decreased sensation b/l feet due to chronic neuropathy Extrem: Right upper extremity: normal to inspection Left upper extremity: normal to inspection Right lower extremity: ankle Details: normal to inspection, abnormal ROM Details: with range as follows (ankle dorsiflexion -10 degrees, plantar flexion 40?, inversion 15?, eversion 15?) and other ( good stability all directions); no tenderness, no swelling and no ecchymosis and foot Details: abnormal to inspection Details: other ( Amputation hallux and 3rd toe), vascular exam Details: dorsalis pedis pulse present and normal capillary refill, tendon exam Details: active flexion abnormal and active extension abnormal and motor-sensory exam Details: two point discrimination abnormal Location: in all toes and light-touch abnormal Location: in all toes Left lower extremity: ankle Details: normal to inspection and abnormal ROM Details: with range as follows (ankle dorsiflexion -10 degrees, plantar flexion 40?, inversion 15?, eversion 15?); no tenderness and no swelling and foot Details: normal capillary refill, abnormal to inspection ( amputation 3rd toe), abnormal ROM of toe, vascular exam (2+DP pulse, good cap refill all toes), tendon exam active flexion abnormal of the great toe and active extension abnormal of the great toe and motor-sensory exam two point discrimination abnormal and light-touch abnormal in all toes; no tenderness and no crepitus Other: Psych: Mental Status: mental status grossly normal Thought content: Yes Normal thought content present Objective Data Vital Signs Vital Signs: Vital Signs - 24 hr 09/20/21 13:15 09/20/21 20:00 09/20/21 20:19 Temper
[2021-09-21] MEDS: LIDOCAINE HCL 1% PF INJ 5 ML VIAL INFILTRATE (11:30)
[2021-09-21] MEDS: PHARMACIST COMMUNICATION ORDER 1 EACH XX (11:34)
[2021-09-21 12:37] LABS: Glucose Point of Care 139 mg/dl (65-105)
[2021-09-21] MEDS: CENTRAL LINE FLUSH 10 ML IV PUSH ×2 (14:33→22:02)
--- NOTE | 2021-09-21 14:36 | PM.IMPN ---
Progress Note: A&P Assessment and Plan (1) Acute osteomyelitis of metatarsal bone of right foot: Onset Date: ~08/2021 Code(s): M86.171 - Other acute osteomyelitis, right ankle and foot Status: Acute Assessment and Plan: -patient is on IV vanc and Zosyn. -status post amputation -will need PICC line and outpatient antibiotics. Recommendations per Ortho (2) Insulin dependent type 2 diabetes mellitus: Onset Date: Unknown Code(s): E11.9 - Type 2 diabetes mellitus without complications; Z79.4 - assisted (current) use of insulin Status: Chronic Assessment and Plan: - A1C = 8.1. -encourage appropriate diabetes management as outpatient. - Maintain a Diabetic diet. - Continue Accu checks; they are in the 141-193 range. - Continue diabetic medications. - SSI initiated, has refused in the past. (3) Hypertension: Onset Date: Unknown Code(s): I10 - Essential (primary) hypertension Status: Chronic Assessment and Plan: -continue current medical regimen. -monitor blood pressure (4) Tobacco abuse: Onset Date: Unknown Code(s): Z72.0 - Tobacco use Status: Chronic Assessment and Plan: - Pt. was counselled for smoking cessation. - Nicotine patch ordered. Subjective Date/time seen: 09/21/21 14:36 Noted complaints pain is controlled Review of Systems Review of Systems: 10 point ROS negative except as stated in HPI / Subjective Exam Narrative: General: alert and oriented Psych: appropriate mood nad affect Eyes: PERRLA Neck: Trachea midline, no new lesions Skin: no changes Lungs: CTA Cardiac: Normal S1,S2, no MGR ABD: soft, nd, nt, nbs Ext: no new lesions, no cce Vasc: Pulses intact Objective Data Vital Signs Vital Signs: Vital Signs - 24 hr 09/20/21 20:00 09/20/21 20:19 09/21/21 05:59 Temperature 97.6 F 97.6 F Pulse Rate 72 72 70 Respiratory Rate 14 14 16 Blood Pressure 118/82 121/63 Pulse Oximetry 100 100 97 09/21/21 08:20 Temperature Pulse Rate Respiratory Rate Blood Pressure Pulse Oximetry 95 Intake/Output Intake/Output: Intake & Output 09/18/21 09/19/21 09/20/21 09/21/21 23:59 23:59 23:59 23:59 Intake Total 4660 4600 5680 2386 Output Total 3640 5100 4820 1000 Balance 1610 -992 954 3685 Meds/Results Medications: Active Medications Generic Name Dose Route Start Last Admin Trade Name Freq PRN Reason Stop Dose Admin Acetaminophen 650 mg 09/17/21 15:23 Acetaminophen 325 Mg Tablet PO Q6H PRN Fever > 100.4 Hydrocodone Bitart/Acetaminophen 1 tab 09/18/21 09:45 09/21/21 11:03 Hydrocodone/Acetaminophen (*Crx) 7.5-325 Mg Tablet PO 1 tab Q6H PRN Administration PAIN 4-6 Aspirin 81 mg 09/16/21 08:00 09/21/21 09:05 Aspirin 81 Mg Chewable Tablet PO 81 mg DAILY@0800 ILYA Administration Atorvastatin Calcium 80 mg 09/16/21 09:00 09/21/21 09:05 Atorvastatin 40 Mg Tablet PO 80 mg DAILY ILYA Administration Bisacodyl 10 mg 09/17/21 15:23 Bisacodyl 10 Mg Suppository RECTAL DAILY PRN Constipation Dextrose 12.5 gm 09/15/21 21:38 Dextrose 50% 25 Gm/50 Ml Syringe IV PUSH PRN PRN Hypoglycemia Protocol Diazepam 5 mg 09/17/21 15:23 Diazepam (*Crx) 5 Mg Tablet PO Q8H PRN Muscle Spasm Empagliflozin 10 mg 09/16/21 09:00 09/21/21 09:06 Empagliflozin 10 Mg Tablet PO 10 mg DAILY ILYA Administration Famotidine 20 mg 09/17/21 21:00 09/21/21 09:05 Famotidine 20 Mg Tablet PO 20 mg Q12HR ILYA Administration Glucagon 1 mg 09/15/21 21:38 Glucagon For Inj 1 Mg Vial IM PRN PRN Hypoglycemia Protocol Glucose 15 gm 09/15/21 21:38 Glucose Oral Gel 15 Gm Of Glucse In 37.5 Gm Tube PO PRN PRN Hypoglycemia Protocol Hydromorphone HCl 0.5 mg 09/15/21 18:28 09/18/21 20:37 Hydromorphone Hcl Inj (*Crx) 1 Mg/Ml Syr IV PUSH 0.5 mg Q3H PRN Administ
[2021-09-21 16:15] LABS: Glucose Point of Care 195 mg/dl (65-105)
[2021-09-21] MEDS: HYDROmorphone HCL INJ (*CRX) 1 MG/ML SYR 0.5 MG IV PUSH (16:56)
[2021-09-21 20:00] VITALS: PULSE 70; RESP 16; O2SAT 95
[2021-09-21] MEDS: INSULIN GLARGINE (*BKC) 100 UNITS/ML 20 UNITS SUB-Q (20:18)
[2021-09-21 20:46] LABS: Glucose Point of Care 164 mg/dl (65-105)
[2021-09-21 21:45] VITALS: BP 142/86; PULSE 75; RESP 16; TEMP 36.4; O2SAT 99
[2021-09-21 23:05] LABS: Glucose Point of Care 211 mg/dl (65-105)
[2021-09-22] MEDS: CENTRAL LINE FLUSH 10 ML IV PUSH ×2 (05:09→13:54)
[2021-09-22] MEDS: HYDROcodone/acetaminophen (*CRX) 7.5-325 MG TABLET 1 TAB PO ×2 (05:13→13:52)
[2021-09-22 06:45] VITALS: BP 139/75; PULSE 94; RESP 16; TEMP 36.7; O2SAT 96
[2021-09-22 07:34] LABS: Glucose Point of Care 132 mg/dl (65-105)
[2021-09-22] MEDS: FAMOTIDINE 20 MG TABLET PO (08:27)
[2021-09-22] MEDS: EMPAGLIFLOZIN 10 MG TABLET PO (08:27)
[2021-09-22] MEDS: ATORVASTATIN 40 MG TABLET 80 MG PO (08:27)
[2021-09-22] MEDS: polyethylene glycoL 3350 17 GM POWD.PACK PO (08:27)
[2021-09-22] MEDS: ASPIRIN 81 MG CHEWABLE TABLET PO (08:27)
--- NOTE | 2021-09-22 09:03 | PCNWS ---
Weekly nutritional screen. Patient is tolerating current diet with adequate intake. No weight loss reported. No nutritional needs at this time.
--- NOTE | 2021-09-22 10:17 | PM.PNORT ---
Progress Note: A&P Assessment and Plan (1) Acute osteomyelitis of metatarsal bone of right foot: Onset Date: ~08/2021 Code(s): M86.171 - Other acute osteomyelitis, right ankle and foot Status: Acute Assessment and Plan: POD #5: Right 1st ray amputation. Cultures and sensitivity noted. PICC line in place. Ceftriaxone x 3 weeks. Continue daily dressing changes. Nursing notified of home needs. Patient education needed for self dressing changes. NWB RLE. Fracture boot. Okay to balance on HEEL only when ambulating or working with PT/OT. Keep walker close by for patient to prevent falls. Elevate RLE on pillows. Continue pain control. Dispo: Home with home health and IV infusion Follow up in 1 week in [facility] wound clinic. Additional Plan Reviewed case, exam, culture results with attending MD, Dr. Burton. Plans for 3 weeks of IV ceftriaxone and then transition to oral Bactrim. No further recommendations. Time Spent With Patient Time with patient: less than 15 minutes Subjective Subjective Date/Time Seen: 09/22/21 10:17 Interval history: POD #5: Right hallux amputation PICC line in place. Ready to be discharged home. Awaiting final arrangements from home infusion. No new concerns. Review of Systems Review of Systems: All systems reviewed & are unremarkable except as noted in HPI and below (HPI ) Exam Const: General: comfortable and no acute distress Resp: Effort & Inspection: normal respiratory effort Cardio: Rate: regular rate Rhythm: regular rhythm GI: Inspection: non-distended GI Palp: Yes Soft to palpation and No Tenderness to palpation present (GI) Skin: Other: Right Hallux amputation. Dressing removed. Mild sanguinous drainage. Incisions well-approximated. New dressing applied. Mild swelling, redness. No malodor. No erythema. Palpable pedal pulse Neuro: General: oriented to person, oriented to place, oriented to time and No confusion Cognition (Neuro): normal cognition Other: decreased sensation b/l feet due to chronic neuropathy Extrem: Right upper extremity: normal to inspection Left upper extremity: normal to inspection Right lower extremity: ankle Details: normal to inspection, abnormal ROM Details: with range as follows (ankle dorsiflexion -10 degrees, plantar flexion 40?, inversion 15?, eversion 15?) and other ( good stability all directions); no tenderness, no swelling and no ecchymosis and foot Details: abnormal to inspection Details: other ( Amputation hallux and 3rd toe), vascular exam Details: dorsalis pedis pulse present and normal capillary refill, tendon exam Details: active flexion abnormal and active extension abnormal and motor-sensory exam Details: two point discrimination abnormal Location: in all toes and light-touch abnormal Location: in all toes Left lower extremity: ankle Details: normal to inspection and abnormal ROM Details: with range as follows (ankle dorsiflexion -10 degrees, plantar flexion 40?, inversion 15?, eversion 15?); no tenderness and no swelling and foot Details: normal capillary refill, abnormal to inspection ( amputation 3rd toe), abnormal ROM of toe, vascular exam (2+DP pulse, good cap refill all toes), tendon exam active flexion abnormal of the great toe and active extension abnormal of the great toe and motor-sensory exam two point discrimination abnormal and light-touch abnormal in all toes; no tenderness and no crepitus Other: Dressing c/d/i. Psych: Mental Status: mental status grossly normal Thought content: Yes Normal thought content present Objective Data Vital Signs Vital Signs: Vital Signs - 24 hr 09/21/21 20:00 09/21/21 21:45 09/22/21 06:45 Temperature 36.4 C 36.7 C Pulse Rate 70 75 94 Respiratory Rate 16 16 16 Blood Pressure 142/86 H 139/75 Pulse Oximetry 95 99 96 Intake/Output Intake/Output: Intake & Output 09/19/21 09/20/21 09/21/21 09/22/21 23:59 23:59 23:59 23:59 Intake Total 4600 5832 2373 0499 Output Total
--- NOTE | 2021-09-22 10:39 | PCPTNOTE ---
Patient reports he is being discharged soon and refused to do therapy at this time. Patient was educated on the benefits of therapy however continues to decline services at this time.
--- NOTE | 2021-09-22 12:10 | PM.DS ---
DS: Admitting Diagnosis Discharge Date 09/22/2021 Admitting Diagnosis Diabetic foot wound. DS: Discharge Diagnosis Discharge Diagnosis (1) Acute osteomyelitis of metatarsal bone of right foot: Onset Date: ~08/2021 Code(s): M86.171 - Other acute osteomyelitis, right ankle and foot Status: Acute Assessment and Plan: -patient has been on IV vanc and Zosyn. Pt can transition to IV rocephin for total of 21 days -status post Right 1st ray amputation -will need PICC line and outpatient antibiotics. Recommendations per Ortho (2) Insulin dependent type 2 diabetes mellitus: Onset Date: Unknown Code(s): E11.9 - Type 2 diabetes mellitus without complications; Z79.4 - MCC (current) use of insulin Status: Chronic Assessment and Plan: - A1C = 8.1. -encourage appropriate diabetes management as outpatient. - Maintain a Diabetic diet. - Continue Accu checks; they are in the 141-193 range. - Continue diabetic medications. - Adviced to do better with his DM (3) Hypertension: Onset Date: Unknown Code(s): I10 - Essential (primary) hypertension Status: Chronic Assessment and Plan: -Continue current medical regimen. (4) Tobacco abuse: Onset Date: Unknown Code(s): Z72.0 - Tobacco use Status: Chronic Assessment and Plan: - Pt. was counselled for smoking cessation. - Nicotine patch ordered. DS: Summary Hospital Course Hospital Course: 50-year-old male with insulin-dependent diabetes, hypertension, and hyperlipidemia who presented to the emergency department earlier today via private vehicle from home for evaluation of a right foot wound. He has a history of a diabetic foot wound with osteomyelitis at that site requiring previous debridement. According to the patient it took approximately 6 months to heal but he thought was doing just fine until the last 7 to 10 days when it ?opened up? and began draining foul-smelling urine. Pt is sp Right 1st ray amputation. Time Spent with Patient Time attestation: Total time spent providing and/or coordinating discharge services:45 minutes on day of dischrage Exam Narrative: General: alert and oriented Psych: appropriate mood nad affect Eyes: PERRLA Neck: Trachea midline, no new lesions Skin: no changes Lungs: CTA Cardiac: Normal S1,S2, no MGR ABD: soft, nd, nt, nbs Ext: R foot with dressing DS: Data Data Completed and Pending Pending studies at discharge: Pending at discharge 09/17/21 13:59 Surgical [PTH] Routine Labs on day of discharge: Labs from last 24 hours 09/22/21 09/22/21 09/21/21 07:44 07:31 23:03 POC Capillary Glucose 132 H 211 H Vancomycin Trough 13.0 09/21/21 09/21/21 09/21/21 20:15 16:01 12:33 POC Capillary Glucose 164 H 195 H 139 H Vancomycin Trough Discharge Plan Discharge Attending physician on discharge: Tameka Flores Consulting providers: Royer Burton ; Ismael Neal ; Lee Matthews ; Jacky Elizabeth ; Lacey Hogan ; Mikaela Reyes ; Yamileth Greenberg ; Conner Hines Discharging Clinician: Tameka Flores Anticipated Discharge Date/Time: 09/22/21 12:08 Patient Disposition: Home, Self-Care Activity: no shower, no driving and follow weight bearing status Diet: diabetic Wound Care Instructions: follow printed instructions Discharge Instructions: Per Care Coordination: Pt to follow with [facility] in [facility] for PICC line care [phone] [facility] for IV antibiotics Orthopedic Recommendations Dr. Royer Burton [phone] Continue fracture boot. NO weight bearing on the front of the foot. Balance on heel if needed. Change dressing daily. Apply the transfer (white thin foam) to the incision line daily. Covery with gauze and wrap with kerlex (gauze roll). Follow up in 1 week in the [facility] wound clinic. See below. Antibiotics to be continued x3 weeks. Will t
[2021-09-22 12:11] LABS: Glucose Point of Care 173 mg/dl (65-105)
== END 2021-09-22 14:16 | disposition home or self-care (01) | DRG 305 ==
LOC: ANHED 17:04 → ANH2MED 17:58
PROVIDERS: Internal Medicine; Nurse Practitioner Adult Health; Orthopaedic Surgery; Physician Assistant; Admitting Provider Internal Medicine; Emergency Provider Nurse Practitioner Family; Visit Provider Family Medicine
PROC: 0Y6M0Z9 Detachment at Right Foot, Partial 1st Ray, Open Approach (ICD-10-PCS; principal; 2021-09-17 13:30)
DX: E11.69 Type 2 diabetes mellitus with other specified complication (principal); M86.171 Other acute osteomyelitis, right ankle and foot; E11.621 Type 2 diabetes mellitus with foot ulcer; L97.519 Non-pressure chronic ulcer of other part of right foot with unspecified severity; B95.1 Streptococcus, group B, as the cause of diseases classified elsewhere; L03.115 Cellulitis of right lower limb; E78.5 Hyperlipidemia, unspecified; I10 Essential (primary) hypertension; J44.9 Chronic obstructive pulmonary disease, unspecified; F17.210 Nicotine dependence, cigarettes, uncomplicated; Z79.4 Long term (current) use of insulin; Z79.82 Long term (current) use of aspirin; E66.9 Obesity, unspecified; Z68.38 Body mass index [BMI] 38.0-38.9, adult
CPT/HCPCS: 36415; 36569; 73630; 80048; 80053; 80202; 82565; 82948; 83036; 83605; 83735; 85025; 85027; 85610; 85652; 85730; 86140; 87040; 87070; 87077; 87186; 87205; 88305; 88311; 96374; 97116; 97161; 97166; 99285; A9270; C1751; J0696; J0743; J1170; J1650; J1815; J1885; J2250; J2270; J2405; J2543; J2704; J3010; J3370; J7030; J7120; L2116

== ENCOUNTER 2021-11-20 08:01 | Outpatient (RCR) | payer OTHER, SELFPAY ==
[2021-09-29 09:17] VITALS: BMI 38.6
--- NOTE | 2021-09-29 09:39 | P.PNOP_ITS ---
Progress Note: A&P Assessment and Plan (1) Acute osteomyelitis of metatarsal bone of right foot: Onset Date: ~08/2021 Code(s): M86.171 - Other acute osteomyelitis, right ankle and foot Status: Acute Assessment and Plan: 1 week, 5 days s/p right hallux amputation. Continue IV antibiotics. Continue daily dressing changes with transfer/kerlex. NWB RLE. Fracture boot. Okay to balance on HEEL only when ambulating or working with PT/OT. Continue pain control. Follow up in 1 week for suture removal. Additional Plan Time Spent With Patient Time with patient: 15 - 25 minutes Subjective Subjective Date/Time Seen: 09/29/21 09:39 Interval history: 1 week, 5 days s/p right 1st ray amp. Follows up in [facility] wound clinic today. Patient sent home without dressing supplies at discharge by [facility]. Needs supplies. Tolerating IV antibiotics well. Still with pain to the right foot, mainly plantar. No fever, chills, night sweats, nausea, vomiting or diarrhea. Noncompliant with NWB but utilizing fracture boot. Review of Systems Review of Systems: All systems reviewed & are unremarkable except as noted in HPI and below (HPI ) Exam Const: General: comfortable and no acute distress Resp: Effort & Inspection: normal respiratory effort Cardio: Rate: regular rate Rhythm: regular rhythm GI: Inspection: non-distended GI Palp: Yes Soft to palpation and No Tenderness to palpation present (GI) Skin: Other: Right Hallux amputation. Dressing removed. Sutures intact. Scan sanguinous drainage. Skin well-approximated. New dressing applied. No malodor. No erythema. Palpable pedal pulse Neuro: General: oriented to person, oriented to place, oriented to time and No confusion Cognition (Neuro): normal cognition Other: decreased sensation b/l feet due to chronic neuropathy Extrem: Right upper extremity: normal to inspection Left upper extremity: normal to inspection Right lower extremity: ankle Details: normal to inspection, abnormal ROM Details: with range as follows (ankle dorsiflexion -10 degrees, plantar flexion 40?, inversion 15?, eversion 15?) and other ( good stability all directions); no tenderness, no swelling and no ecchymosis and foot Details: abnormal to inspection Details: other ( Amputation hallux and 3rd toe), vascular exam Details: dorsalis pedis pulse present and normal capillary refill, tendon exam Details: active flexion abnormal and active extension abnormal and motor-sensory exam Details: two point discrimination abnormal Location: in all toes and light-touch abnormal Location: in all toes Left lower extremity: ankle Details: normal to inspection and abnormal ROM Details: with range as follows (ankle dorsiflexion -10 degrees, plantar flexion 40?, inversion 15?, eversion 15?); no tenderness and no swelling and foot Details: normal capillary refill, abnormal to inspection ( amputation 3rd toe), abnormal ROM of toe, vascular exam (2+DP pulse, good cap refill all toes), tendon exam active flexion abnormal of the great toe and active extension abnormal of the great toe and motor-sensory exam two point discrimination abnormal and light- touch abnormal in all toes; no tenderness and no crepitus Other: Dressing c/d/i. Psych: Mental Status: mental status grossly normal Thought content: Yes Normal thought content present
--- NOTE | 2021-10-06 09:07 | PM.PNORT ---
Progress Note: A&P Assessment and Plan (1) Acute osteomyelitis of metatarsal bone of right foot: Onset Date: ~08/2021 Code(s): M86.171 - Other acute osteomyelitis, right ankle and foot Status: Acute Assessment and Plan: 2 week, 5 days s/p right hallux amputation. Continue IV antibiotics x 1 week. Then planned transition to oral antibiotics for 3 more weeks. Continue daily dressing changes with transfer/kerlex. NWB RLE. Fracture boot. Okay to balance on HEEL only when ambulating or working with PT/OT. Continue pain control. Sutures removed today without difficulty. Incision appears well-healed. Small area 2 mm X 2.5cm dehiscence at the plantar aspect with only 1 mm depth. Wash and dry at this point. Follow up in 1 week For re-evaluation. if improved will plan to stop IV antibiotics at that time and transition to oral antibiotics. Additional Plan Time Spent With Patient Time with patient: 15 - 25 minutes Subjective Subjective Date/Time Seen: 10/06/21 09:07 Post Op day: 19 Principal diagnosis: right diabetic foot ulcer with osteomyelitis Interval history: 19 days status post right 1st ray amputation with debridement and closure. Patient presents to the [facility] for follow-up visit. No interim complaints. Exam Const: General: comfortable and no acute distress Resp: Effort & Inspection: normal respiratory effort Cardio: Rate: regular rate Rhythm: regular rhythm GI: Inspection: non-distended GI Palp: Yes Soft to palpation and No Tenderness to palpation present (GI) Skin: Other: Right Hallux amputation. Dressing removed. Sutures intact. Scan sanguinous drainage. Skin well-approximated. New dressing applied. No malodor. No erythema. Palpable pedal pulse Neuro: General: oriented to person, oriented to place, oriented to time and No confusion Cognition (Neuro): normal cognition Other: decreased sensation b/l feet due to chronic neuropathy Extrem: Right upper extremity: normal to inspection Left upper extremity: normal to inspection Right lower extremity: ankle Details: normal to inspection, abnormal ROM Details: with range as follows (ankle dorsiflexion -10 degrees, plantar flexion 40?, inversion 15?, eversion 15?) and other ( good stability all directions); no tenderness, no swelling and no ecchymosis and foot Details: abnormal to inspection Details: other ( Amputation hallux and 3rd toe), vascular exam Details: dorsalis pedis pulse present and normal capillary refill, tendon exam Details: active flexion abnormal and active extension abnormal and motor-sensory exam Details: two point discrimination abnormal Location: in all toes and light-touch abnormal Location: in all toes Left lower extremity: ankle Details: normal to inspection and abnormal ROM Details: with range as follows (ankle dorsiflexion -10 degrees, plantar flexion 40?, inversion 15?, eversion 15?); no tenderness and no swelling and foot Details: normal capillary refill, abnormal to inspection ( amputation 3rd toe), abnormal ROM of toe, vascular exam (2+DP pulse, good cap refill all toes), tendon exam active flexion abnormal of the great toe and active extension abnormal of the great toe and motor-sensory exam two point discrimination abnormal and light-touch abnormal in all toes; no tenderness and no crepitus Other: Dressing c/d/i. Psych: Mental Status: mental status grossly normal Thought content: Yes Normal thought content present Objective Data Meds/Results Medications: Active Medications Generic Name Dose Route Start Last Admin Trade Name Heide PRN Reason Stop Dose Admin Wound Care/Dressing Products 1 patch 09/29/21 09:42 Mepilex Transfer Drsg 6x8 TOPICAL 12/30/21 23:55 PRN PRN Wound Care
--- NOTE | 2021-10-13 08:39 | PM.PNORT ---
Progress Note: A&P Assessment and Plan (1) Acute osteomyelitis of metatarsal bone of right foot: Onset Date: ~08/2021 Code(s): M86.171 - Other acute osteomyelitis, right ankle and foot Status: Acute Assessment and Plan: 3 week, 3 days s/p right hallux amputation. Continue IV antibiotics through the end of this week. Then planned transition to oral antibiotics for 3 more weeks. Continue daily dressing changes with transfer/kerlex, add Chen to depth at plantar aspect. NWB RLE. Fracture boot. Okay to balance on HEEL only when ambulating or working with PT/OT. Continue pain control. Follow up in 2 week for re-evaluation. Additional Plan Time Spent With Patient Time with patient: 15 - 25 minutes Subjective Subjective Date/Time Seen: 10/13/21 08:39 Interval history: Three weeks, 3 days status post right 1st ray amputation. Patient is currently on IV antibiotics and doing well. Most recent lab work reviewed and shows a decrease in white blood cell count. Patient's performing daily dressing changes in the interim with no new concerns today. He denies fever, chills, night sweats, nausea, vomiting or diarrhea. He reports will maintain blood glucose levels. Review of Systems Review of Systems: All systems reviewed & are unremarkable except as noted in HPI and below (HPI ) Exam Const: General: comfortable and no acute distress Resp: Effort & Inspection: normal respiratory effort Cardio: Rate: regular rate Rhythm: regular rhythm GI: Inspection: non-distended GI Palp: Yes Soft to palpation and No Tenderness to palpation present (GI) Skin: Other: Right Hallux amputation. Dressing removed. Sutures intact. Scan sanguinous drainage. Skin well-approximated. New dressing applied. No malodor. No erythema. Palpable pedal pulse Neuro: General: oriented to person, oriented to place, oriented to time and No confusion Cognition (Neuro): normal cognition Other: decreased sensation b/l feet due to chronic neuropathy Extrem: Right upper extremity: normal to inspection Left upper extremity: normal to inspection Right lower extremity: ankle Details: normal to inspection, abnormal ROM Details: with range as follows (ankle dorsiflexion -10 degrees, plantar flexion 40?, inversion 15?, eversion 15?) and other ( good stability all directions); no tenderness, no swelling and no ecchymosis and foot Details: abnormal to inspection Details: other ( Amputation hallux and 3rd toe), vascular exam Details: dorsalis pedis pulse present and normal capillary refill, tendon exam Details: active flexion abnormal and active extension abnormal and motor-sensory exam Details: two point discrimination abnormal Location: in all toes and light-touch abnormal Location: in all toes Left lower extremity: ankle Details: normal to inspection and abnormal ROM Details: with range as follows (ankle dorsiflexion -10 degrees, plantar flexion 40?, inversion 15?, eversion 15?); no tenderness and no swelling and foot Details: normal capillary refill, abnormal to inspection ( amputation 3rd toe), abnormal ROM of toe, vascular exam (2+DP pulse, good cap refill all toes), tendon exam active flexion abnormal of the great toe and active extension abnormal of the great toe and motor-sensory exam two point discrimination abnormal and light-touch abnormal in all toes; no tenderness and no crepitus Other: Wound on the plantar aspect at the flap measures 0.2x2.5x0.7cm. 100% red/pink wound bed. Psych: Mental Status: mental status grossly normal Thought content: Yes Normal thought content present Objective Data Meds/Results Medications: Active Medications Generic Name Dose Route Start Last Admin Trade Name Freq PRN Reason Stop Dose Admin Wound Care/Dressing Products 1 patch 09/29/21 09:42 Mepilex Transfer Drsg 6x8 TOPICAL 12/30/21 23:55 PRN PRN Wound Care
--- NOTE | 2021-10-30 08:38 | PCWOUND ---
WOCN NOTE Patient did not show up for appointment. [employer] called patient and received report no s/s of infection and that wound is improving.
--- NOTE | 2021-11-20 08:53 | P.HP_ITS ---
[facility] Past Medical History Medical History Chronic obstructive pulmonary disease Diabetic foot ulcer Dyslipidemia Hypertension (Unknown) Insulin dependent type 2 diabetes mellitus (Unknown) Hemoglobin A1c was 7.4% on 12/18/2020. Osteomyelitis (07/2020) Septic arthritis (07/2020) Tobacco abuse (Unknown) Surgical History Surgical History History of foot surgery (~2018) Per Dr. Burton: 1. Excision of osteomyelitis from the right foot first and second metatarsal heads. 2. Incision of the hallux metatarsophalangeal joint with removal of septic arthritis. 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 Left 2nd Ray amputation. Family History Family History Other Adopted Unknown family medical history Social History Social History Social History: Surrogate decision maker: Lucho Miranda, father. Code status: Full code. Smoking packs per day: 1 Smoking cigarettes per day: 20.0 Years smoked: 39 Smoking pack-years: 39.00 Smoking status: Current every day smoker Tobacco type: cigarettes Second hand tobacco smoke exposure: No Additional smoking assessment comments: Past month has been smoking on and off only smoke 1 pk/month Alcohol intake: unknown Drinks per week: 4 Alcohol use details: Social Substance use: never Substance use type: does not use Other substance usage details: currently uses marijuana x2 week Last use: 12/2020 Additional living arrangements comments: Additional occupation/education comments: Meds Home Medications and Allergies Home Medications Medication Instructions Recorded Confirmed Type lisinopril 10 mg PO DAILY 01/01/20 09/15/21 History Humulin 70/30 U-100 Insulin 40 unit SUBCUT BID PRN 08/19/20 09/15/21 History Jardiance 10 mg DAILY 08/19/20 09/15/21 History aspirin 81 mg PO DAILY 08/19/20 09/15/21 History atorvastatin 80 mg DAILY 08/19/20 09/15/21 History metoprolol tartrate 25 mg PO BID 08/19/20 09/15/21 History ceftriaxone 1 g IV Q24H 21 Days #1 ea 09/21/21 Rx foam bandage [Mepilex] #10 ea 09/21/21 Rx sennosides-docusate sodium 2 tab PO BID 30 Days #60 tablet 09/21/21 Rx [Senokot-S] sodium chloride 1 syr IV PUSH Q8HR #600 ml 09/21/21 Rx sodium chloride 0.9 % (flush) 10 ml IV Q8H #300 ml 09/21/21 Rx hydrocodone 7.5 mg-acetaminophen 1 tablet PO Q6H PRN #20 tablet 10/06/21 Rx 325 mg tablet Allergies Allergy/AdvReac Type Severity Reaction Status Date / Time No Known Allergies Allergy Verified 09/15/21 15:13
--- NOTE | 2021-11-20 08:54 | PM.IMHP ---
H&P: HPI History of Present Illness Date/Time: 11/20/21 08:54 Chief Complaint: Right 1st ray osteomyelitis Narrative: patient presents to [facility] for follow-up right foot. Two months status post right 1st ray amputation. Patient reports no drainage, wound or opening. Swelling noted with activity. Still not seen by the talent management specialist. Patient states he has an appointment. Reports no other complaints. Review of Systems Constitutional: Constitutional: Reports no additional constitutional complaints, Reports chills, Denies excessive sweating, Denies fever(s) and Denies weight gain Eyes: Eyes: Reports no additional eye complaints and Denies change in vision ENT: Reports system reviewed and no additional complaints, except as documented and Reports Normal hearing present Cardiovascular: Cardiovascular: Denies chest pain, Denies diaphoresis, Denies leg ulcers and Denies dyspnea on exertion Respiratory: Respiratory: Reports no additional respiratory complaints, Denies cough and Denies dyspnea on exertion Gastrointestinal: Gastrointestinal: Reports no additional gastrointestinal complaints, Denies abdominal pain, Denies constipation, Denies nausea and Denies vomiting Genitourinary: Genitourinary: Reports no additional male genitourinary complaints, Denies hematuria and Denies urinary frequency Musculoskeletal: Musculoskeletal: Reports as per HPI Integumentary/Breasts: Skin/Breast: Reports as per HPI, Reports lesions, Reports erythema, Reports skin ulcer and Reports wounds Neurologic: Reports Normal hearing present Psychiatric: Psychiatric: Reports no additional psychiatric complaints Endocrine: Endocrine: Reports no additional endocrine complaints, Denies change in body appearance, Denies excessive sweating, Denies polyphagia, Denies polydipsia, Denies polyuria and Reports other (no changes in blood glucose levels. ) Hematologic/Lymphatic: Hematologic/Lymphatic: Reports no additional hematologic/lymphatic complaints and Denies easy bleeding Allergic/Immunologic: Allergic/Immunologic: Reports no additional allergic/immunologic complaints, Denies lip swelling, Denies throat swelling and Denies tongue swelling [facility] Past Medical History Medical History Chronic obstructive pulmonary disease Diabetic foot ulcer Dyslipidemia Hypertension (Unknown) Insulin dependent type 2 diabetes mellitus (Unknown) Hemoglobin A1c was 7.4% on 12/18/2020. Osteomyelitis (07/2020) Septic arthritis (07/2020) Tobacco abuse (Unknown) Surgical History Surgical History History of foot surgery (~2018) Per Dr. Burton: 1. Excision of osteomyelitis from the right foot first and second metatarsal heads. 2. Incision of the hallux metatarsophalangeal joint with removal of septic arthritis. 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 Left 2nd Ray amputation. Family History Family History Other Adopted Unknown family medical history Social History Social History Social History: Surrogate decision maker: Lucho Miranda, father. Code status: Full code. Smoking packs per day: 1 Smoking cigarettes per day: 20.0 Years smoked: 39 Smoking pack-years: 39.00 Smoking status: Current every day smoker Tobacco type: cigarettes Second hand tobacco smoke exposure: No Additional smoking assessment comments: Past month has been smoking on and off only smoke 1 pk/month Alcohol intake: unknown Drinks per week: 4 Alcohol use details: Social Substance use: never Substance use type: does not use Other substance usage details: currently uses marijuana x2 week Last use: 12/2020 Additional living arrangements comments: Additional occupation/education comments:
== END 2021-12-28 23:59 | disposition home or self-care (01) ==
LOC: ANHWOC 08:01
PROVIDERS: Visit Provider Nurse Practitioner Family
DX: Z47.81 Encounter for orthopedic aftercare following surgical amputation (principal); Z89.411 Acquired absence of right great toe
CPT/HCPCS: 99212; G0463